=== PATIENT | female | born 1935 | race Caucasian/White ===

== ENCOUNTER 2016-10-30 14:11 | Emergency (ER) | payer OTHER ==
[~2016-10-30] VITALS: Ht 154.9 cm; Wt 65.8 kg
[~2016-10-30 14:11] MED LIST: ALENDRONATE SOD70 M2 PO; AMOXIL 875 MG875 MG PO; ANTIVERT 25MG #1 PAC PO; ANTIVERT25 MG PO; ATORVASTATIN CA10 M1 PO; BUFFERIN LOW DO81 MG PO; COZAAR50 M1 PO; FLONASE120 SPRAY/ NASB; LEVOXYL75 MCG PO; MECLIZINE HCL25 MG PO; PREDNISONE 20MG20 MG PO; TESSALON PERLE100 MG PO; TRANSDERM-SCOP1 EACH TOP; VITAMIN D250000 UNIT PO; ZOFRAN ODT4 M1 PO; ZOFRAN ODT4 M1 SL
--- NOTE | 2016-10-30 14:17 | ED AMS/SEIZURE/WEAK/DIZZY ---
History of Present Illness General Chief Complaint: Dizziness Stated Complaint: BIBA FOR VERTIGO, HX OF SAME Source: patient, family, old records, EMS Exam Limitations: no limitations Vital Signs & Intake/Output Vital Signs & Intake/Output Vital Signs Date Time Temp Pulse Resp B/P Pulse O2 O2 Flow FiO2 Ox Delivery Rate 10/30 1418 97 10/30 1416 96.8 74 18 142/63 98 Room Air Allergies Coded Allergies: Penicillins (UNKNOWN 06/09/16) PT. STATES SHE WAS TOLD SHE IS ALLERGIC BUT DOES NOT KNOW THE REACTION. Reconcile Medications Alendronate Sodium (Fosamax 70MG) 70 MG TAB 1 TAB PO QW BONE HEALTH (Reported ) in the morning, at least 30 minutes before the first food, beverage, or medication of the day Amoxicillin (Amoxil 875 MG Tablets) 875 MG TAB 1 TAB PO BID SINUSITIS Aspirin (Children's Aspirin) 81 MG TAB 1 TAB PO DAILY HEART HEALTH (Reported) Atorvastatin (Atorvastatin Calcium) 10 MG TAB 1 TAB PO DAILY CHOLESTROL ( Reported) Benzonatate (Tessalon Perle) 100 MG SGL 1 CAP PO TID PRN COUGH ERGOCALCIFEROL (VITAMIN D2) (Vitamin D2) 50,000 IU SGL 1 CAP PO DAILY SUPPLIMENT (Reported) Fluticasone Propionate (Flonase) 120 SPRAY/BOT SPR 2 SPRAY NASB DAILY sinusitis Levothyroxine Sodium 0.075 MG TAB 1 TAB PO DAILY THYROID REMOVED (Reported) Losartan (Cozaar) 50 MG TAB 1 TAB PO DAILY HTN (Reported) Meclizine (Antivert) 25 MG PAC 1 TAB PO TIDPRN PRN dizziness Meclizine (Antivert) 25 MG TABLET 1 TAB PO TID DIZZINIESS Meclizine HCl 25 MG TABLET 1 TAB PO TIDPRN PRN VERTIGO Ondansetron (Zofran Odt) 4 MG TAB.RAPDIS 1 TAB SL TID PRN NAUSEA Ondansetron (Zofran Odt) 4 MG TAB.RAPDIS 1-2 TAB PO Q8H PRN NAUSEA Prednisone 10 MG TABLET 1 TAB PO DAILY VERTIGO TAKE 2 TABS FOR 3 DAYS THEN TAKE 1 TAB FOR 3 DAYS Prednisone 20 MG TAB 1 TAB PO BID sinusitis Scopolamine Hydrobromide (Transderm-Scop) 1 EACH PATCH.TD.3 1 PAT TOP Q3D VERTIGO/NAUSEA apply to the hairless area behind 1 ear at least 4 hours before effect is required; reapply every 3 days as needed Triage Note: PT C/O FEELING DIZZY THIS AM. PT HAS HX OF SAME AND TRIED TO REACH HER SPECIALIST AND WAS UNABLE TO. PT TRIED TO TAKE HER MECLAZINE BUT STATES IT DIDN'T WORK. PT REPORTS THE DIZZYNESS STARTED FIRST THEN SHE VOMITIED. PT STATES SHE HAS DE [place] ALSO. DR. MCADAMS IN ROOM FOR EVAL. PT DENIES CHEST PAIN. Triage Nurses Notes Reviewed? yes HPI: Patient brought in for room spinning dizziness nausea and vomiting. Patient has a history of the same. Patient took a meclizine at 8:00 this morning and her symptoms decreased but then they came back and she took another meclizine but then she vomited 5 minutes later. Patient denies any headache. She does have tendinitis. There are no fevers or chills. There is no chest pain or palpitations. The room spinning dizziness gets worse with any head movement. There is no blurry vision. SIMILAR Symptoms multiple times in the past over the past few years. Past History Travel History Traveled to [place] past 21 day No Medical History Any Pertinent Medical History? see below for history Neurological: TIA, vertigo EENT: allergies, epistaxis, sinusitis Cardiovascular: hypertension, hyperlipidemia, mitral regurgitation Respiratory: NONE Gastrointestinal: NONE Hepatic: NONE Renal: NONE Musculoskeletal: NONE Psychiatric: NONE Endocrine: hypothyroidism Blood Disorders: NONE Cancer(s): thyroid cancer Surgical History Surgical History: non-contributory Psychosocial History Who do you live with Spouse What is your primary language Qatari Tobacco Use: Never used ETOH Use: denies use Illicit Drug Use: denies illicit drug use Family History Hx Contributory? No Review of Systems Review of Systems Constitutional: Reports: no symptoms. EENTM: Reports: no symptoms. Respiratory: Reports: no symptoms. Cardiovascular: Reports: no symptoms. GI: Reports: see HPI, nausea, vomiting. Genitourinary: Reports: no symptoms. Musculoskeletal: Reports: no symptoms. Skin: Reports: no symptoms. Neurological/Psychological: Reports: see HPI, ataxia. Hematologic/Endocrine: Reports: no symptoms. Immunologic/Allergic: Reports: no symptoms. All Other Systems: Reviewed and Negative Physical Exam Physical Exam General Appearance: well developed/nourished, alert, awake, anxious, moderate distress Head: atraumatic Eyes: Bilateral: PERRL, EOMI. Ears, Nose, Throat: normal pharynx, normal ENT inspection, + NYSTAGMUS Neck: normal inspection, supple, full range of motion Respiratory: normal breath sounds, chest non-tender, no respiratory distress, lungs clear Cardiovascular: regular rate/rhythm, normal peripheral pulses Gastrointestinal: normal bowel sounds, soft, non-tender, no organomegaly Back: normal inspection, normal range of motion Extremities: normal range of motion Neurologic/Psych: no motor/sensory deficits, awake, alert, oriented x 3 Skin: intact, normal color, warm/dry Lymphatic: no anterior cervical [place] Core Measures ACS in differential dx? No CVA/TIA Diagnosis: No Severe Sepsis Present: No Septic Shock Present: No Progress Differential Diagnosis: anemia, encephalitis, electrolyte imbalance, intracranial mass/tumor, labrynthitis, Meniere's disease, vertebrobasilar insuff Plan of Care: Orders Procedure Date/time Status TROPONIN LEVEL 10/30 141 Complete COMPREHENSIVE METABOLIC PANEL 10/30 1417 Complete CBC WITHOUT DIFFERENTIAL 10/30 141 Complete EKG 10/30 1412 Active Laboratory Tests 10/30/16 1433: Anion Gap 11, Estimated GFR > 60, BUN/Creatinine Ratio 23.3, Glucose 119 H, Calcium 10.1, Total Bilirubin 0.9, AST 20, ALT 25, Alkaline Phosphatase 62, Troponin I < 0.01, Total Protein 7.7, Albumin 4.2, Globulin 3.5, Albumin/ Globulin Ratio 1.2, CBC w Diff NO MAN DIFF REQ, RBC 5.18, MCV 82.1, MCH 27.2, RDW 13.1, MPV 7.0 L, Gran % 87.9 H, Lymphocytes % 7.3 L, Monocytes % 4.8, Eosinophils % 0, Basophils % 0 L, Absolute Granulocytes 6.0, Absolute Lymphocytes 0.5 L, Absolute Monocytes 0.3, Absolute Eosinophils 0, Absolute Basophils 0, PUBS MCHC 33.2 Initial ED EKG: none Comments: Patient feeling much better after by mouth Decadron. Patient ambulated in the emergency department with the use of a walker without difficulty. Departure Departure Disposition: HOME OR SELF CARE Condition: Stable Clinical Impression Primary Impression: Vertigo Referrals: MICHELE CLAY,DELVIN Berger (PCP/Family) Additional Instructions: Follow-up with either her nose and throat doctor. Take prednisone as prescribed. Return if symptoms worsen or as needed. Departure Forms: Customer Survey General Discharge Information Prescriptions: Current Visit Scripts Prednisone 1 TAB PO DAILY #9 TAB TAKE 2 TABS FOR 3 DAYS THEN TAKE 1 TAB FOR 3 DAYS
[2016-10-30 14:52] LABS: ABSOLUTE BASOPHIL COUNT 0 /CUMM (0.0-0.2); ABSOLUTE EOSINOPHIL COUNT 0 /CUMM (0.0-0.7); ABSOLUTE LYMPH COUNT 0.5 /CUMM (1.2-3.4); ABSOLUTE MONOCYTE COUNT 0.3 /CUMM (0.10-0.60); BASOPHIL % 0 % (0.0-2.0); EOSINOPHIL % 0 % (0-5); GRANULOCYTE % 87.9 % (42.2-75.2); HEMATOCRIT 42.5 % (37-47); MEAN CORPUSCULAR HGB 27.2 PG (27.0-31.0); MEAN CORPUSCULAR HGB CONC 33.2 G/DL (33.0-37.0); MEAN CORPUSCULAR VOLUME 82.1 FL (81.0-99.0); PLATELET COUNT 227 /CUMM (130-400); RBC DISTRIBUTION WIDTH 13.1 % (11.5-14.5); RED BLOOD CELL CT 5.18 /CUMM (4.20-5.40); WHITE BLOOD CELL COUNT 6.8 /CUMM (4.8-10.8)
[2016-10-30] MEDS ORDERED: PREDNISONE10 M2 PO (16:12)
[2016-10-30 16:14] VITALS: BP 169/80
== END 2016-10-30 16:30 ==
LOC: ERH 14:11
PROVIDERS: Emergency Medicine
DX: R42 Dizziness and giddiness (principal); R11.2 Nausea with vomiting, unspecified
CPT/HCPCS: 93005; 93010; 96374; J2405

== ENCOUNTER 2016-11-02 17:43 | Emergency (ER) | payer OTHER ==
[~2016-11-02] VITALS: Ht 154.9 cm; Wt 56.7 kg
[~2016-11-02 17:43] MED LIST changes: +PREDNISONE10 M2 PO
[2016-11-02 18:28] LABS: ABSOLUTE BASOPHIL COUNT 0 /CUMM (0.0-0.2); ABSOLUTE EOSINOPHIL COUNT 0 /CUMM (0.0-0.7); ABSOLUTE GRANULOCYTE CT 6.6 /CUMM (1.4-6.5); ABSOLUTE LYMPH COUNT 0.6 /CUMM (1.2-3.4); ABSOLUTE MONOCYTE COUNT 0.3 /CUMM (0.10-0.60); BASOPHIL % 0.2 % (0.0-2.0); EOSINOPHIL % 0 % (0-5); HEMATOCRIT 41.3 % (37-47); MEAN CORPUSCULAR HGB 27.5 PG (27.0-31.0); MEAN CORPUSCULAR HGB CONC 33.7 G/DL (33.0-37.0); MEAN CORPUSCULAR VOLUME 81.8 FL (81.0-99.0); MEAN PLATELET VOLUME 6.9 FL (7.4-10.4); PLATELET COUNT 265 /CUMM (130-400); RBC DISTRIBUTION WIDTH 13.2 % (11.5-14.5); RED BLOOD CELL CT 5.05 /CUMM (4.20-5.40); WHITE BLOOD CELL COUNT 7.5 /CUMM (4.8-10.8)
[2016-11-02 18:35] LABS: PT 11.1 SEC (9.4-12.5); PTT 29 SEC (25-37)
[2016-11-02 18:47] LABS: GRANULOCYTE % 87.6 % (42.2-75.2)
[2016-11-02 19:00] VITALS: BP 164/80
--- NOTE | 2016-11-02 19:04 | ED CARDIAC/CP/PALPITATIONS ---
History of Present Illness General Chief Complaint: Dizziness Stated Complaint: DIZZINESS Source: patient, family, old records Exam Limitations: no limitations Vital Signs & Intake/Output Vital Signs & Intake/Output Vital Signs Date Time Temp Pulse Resp B/P Pulse O2 O2 Flow FiO2 Ox Delivery Rate 11/02 1901 96 11/02 1900 70 18 164/80 96 Room Air 11/02 1754 98.5 92 18 161/111 99 Room Air Allergies Coded Allergies: Penicillins (UNKNOWN 06/09/16) PT. STATES SHE WAS TOLD SHE IS ALLERGIC BUT DOES NOT KNOW THE REACTION. Reconcile Medications Alendronate Sodium (Fosamax 70MG) 70 MG TAB 1 TAB PO QW BONE HEALTH (Reported ) in the morning, at least 30 minutes before the first food, beverage, or medication of the day Amoxicillin (Amoxil 875 MG Tablets) 875 MG TAB 1 TAB PO BID SINUSITIS Aspirin (Children's Aspirin) 81 MG TAB 1 TAB PO DAILY HEART HEALTH (Reported) Atorvastatin (Atorvastatin Calcium) 10 MG TAB 1 TAB PO DAILY CHOLESTROL ( Reported) Benzonatate (Tessalon Perle) 100 MG SGL 1 CAP PO TID PRN COUGH ERGOCALCIFEROL (VITAMIN D2) (Vitamin D2) 50,000 IU SGL 1 CAP PO DAILY SUPPLIMENT (Reported) Fluticasone Propionate (Flonase) 120 SPRAY/BOT SPR 2 SPRAY NASB DAILY sinusitis Levothyroxine Sodium 0.075 MG TAB 1 TAB PO DAILY THYROID REMOVED (Reported) Losartan (Cozaar) 50 MG TAB 1 TAB PO DAILY HTN (Reported) Meclizine (Antivert) 25 MG PAC 1 TAB PO TIDPRN PRN dizziness Meclizine (Antivert) 25 MG TABLET 1 TAB PO TID DIZZINIESS Meclizine HCl 25 MG TABLET 1 TAB PO TIDPRN PRN VERTIGO Ondansetron (Zofran Odt) 4 MG TAB.RAPDIS 1 TAB SL TID PRN NAUSEA Ondansetron (Zofran Odt) 4 MG TAB.RAPDIS 1-2 TAB PO Q8H PRN NAUSEA Prednisone 10 MG TABLET 1 TAB PO DAILY VERTIGO TAKE 2 TABS FOR 3 DAYS THEN TAKE 1 TAB FOR 3 DAYS Prednisone 20 MG TAB 1 TAB PO BID sinusitis Scopolamine Hydrobromide (Transderm-Scop) 1 EACH PATCH.TD.3 1 PAT TOP Q3D VERTIGO/NAUSEA apply to the hairless area behind 1 ear at least 4 hours before effect is required; reapply every 3 days as needed Triage Note: 81 Y/O FEMALE AND "LIKE IT SKIPS A BEAT" THROUGHOUT THE DAY TODAY. STATES IT HAS BEEN ONGOING FOR YEARS BUT MORE BOTHERSOME TODAY. DENIES PAIN. ATE DINNER PRIOR TO COMING TO ED WITHOUT DIFFICULTY. EKG COMPLETED AND SIGNED BY MD Triage Nurses Notes Reviewed? yes Onset: Gradual Duration: day(s): (2), intermittent Timing: recent history Quality/Severity: mild, PALPITAITONS Location: central Radiation: no radiation Activities at Onset: none Prior Chest Pain/Card Workup: SIMILAR SX Associated Symptoms: LIGHTHEADEDNESS HPI: 81-year-old female with history of vertigo for which she was seen here 3 days ago presents to the emergency room today complaining of an intermittent history for the past 2 days of palpitations and feeling lightheaded that comes on more so while laying flat. The patient denies any chest pain shortness of breath abdominal pain nausea vomiting or diarrhea. She is currently on a Medrol Dosepak and meclizine for her vertigo is states this feels different. The patient reports history of similar episodes in the past and used to be seen by a low emission automobile designer hours. Seen one in many years however has gone through many steps including a Holter monitor with no known cause identified. The patient denies any of these symptoms at this time no cough fever or chills. The patient denies dizziness today, headache numbness tingling or weakness in her extremities (SANDEE PICKARD) Past History Travel History Traveled to [place] past 21 day No Medical History Any Pertinent Medical History? see below for history Neurological: TIA, vertigo EENT: allergies, epistaxis, sinusitis Cardiovascular: hypertension, hyperlipidemia, mitral regurgitation Respiratory: NONE Gastrointestinal: NONE Hepatic: NONE Renal: NONE Musculoskeletal: NONE Psychiatric: NONE Endocrine: hypothyroidism Blood Disorders: NONE Cancer(s): thyroid cancer Surgical History Surgical History: non-contributory Psychosocial History Who do you live with Spouse What is your primary language Danish Tobacco Use: Never used Family History Hx Contributory? No (SANDEE PICKARD) Review of Systems Review of Systems Constitutional: Reports: see HPI. All Other Systems: Reviewed and Negative Comments Review of systems: See HPI, All other systems negative. Constitutional, no chills no fever, no malaise HEENT: No visual changes no sore throat no congestion Cardiovascular: No chest pain , palpitation , Skin, no rashes, no change in skin Respiratory: No dyspnea no cough no sputum GI: No nausea no vomiting, no diarrhea, no bloating/constipation : No dysuria No hematuria, n Muscle skeletal: No joint pain, no joint swelling, no back pain, no neck pain, Neurologic: No numbness no confusion, no headache Psych: No stress Heme/endocrine: No bruising no bleeding Immunology: No lymphadenopathy (SANDEE PICKARD) Physical Exam Physical Exam General Appearance: well developed/nourished, alert, awake Cardiovascular: regular rate/rhythm Comments: Well-developed well-nourished person in no acute distress HEENT: Normal EENT exam; PERRL, EOMI, no nystagmus. HEAD is atraumatic. moist mucous membranes. Neck: Supple, no lymphadenopathy, normal range of motion without pain or tenderness Back: Nontender, no CVA tenderness. Full range of motion Cardiovascular: Regular rate and rhythms no murmurs rubs or gallops, normal JVP Respiratory: Chest nontender.There were no bony deformities, no asymmetry. No respiratory distress. Patient speaking in full complete sentences. Breath sounds clear to auscultation bilaterally: NO W/R/R Abdomen: Soft, nontender nondistended, no appreciable organomegaly. Normal bowel sounds. No rebound/guarding, Extremity: No edema, full range of motion of extremities Neuro: Alert oriented x3, motor sensory normal, cranial nerves II through XII grossly intact. There were no obvious focal neurologic abnormalities. Skin: No appreciable rash on exposed skin, skin is warm and dry. Psych: Mood and affect is normal, memory and judgment is normal. Core Measures ACS in differential dx? Yes Severe Sepsis Present: No Septic Shock Present: No (SANDEE PICKARD) Progress Differential Diagnosis: AMI, aortic dissection, atrial fibrillation, cholecystitis, CHF/pulm edema, costochondritis, hyperkalemia, hypovolemia, hyperventilation, musculoskeletal pain, myocarditis, pancreatitis, pericarditis, pneumonia, pneumothorax, PSVT, pulmonary embolism, PUD/GERD, PVCs/PACs, respiratory failure, rib fracture, sepsis, unstable angina, V-fib/V-Tach, WPW syndrome Initial ED EKG: normal intervals, normal p-waves, normal QRS complex, normal sinus rhythm (70) Prior EKG: unchanged (2015) (SANDEE PICKARD) Plan of Care: Orders Procedure Date/time Status TROPONIN LEVEL 11/02 1745 Complete PARTIAL THROMBOPLASTIN TIME 11/02 1745 Complete PROTHROMBIN TIME 11/02 1745 Complete MAGNESIUM 11/02 1745 Complete COMPREHENSIVE METABOLIC PANEL 11/02 1745 Complete CBC WITHOUT DIFFERENTIAL 11/02 1745 Complete EKG 11/02 1744 Active Laboratory Tests 11/02/16 1811: Anion Gap 15, Estimated GFR > 60, BUN/Creatinine Ratio 24.4, Glucose 141 H, Calcium 9.7, Magnesium 1.8, Total Bilirubin 0.6, AST 34, ALT 43, Alkaline Phosphatase 56, Troponin I < 0.01, Total Protein 7.5, Albumin 4.2, Globulin 3.3, Albumin/Globulin Ratio 1.3, PT 11.1, INR 1.06, APTT 29, CBC w Diff NO MAN DIFF REQ, RBC 5.05, MCV 81.8, MCH 27.5, RDW 13.2, MPV 6.9 L, Gran % 87.6 H, Lymphocytes % 7.8 L, Monocytes % 4.4, Eosinophils % 0, Basophils % 0.2, Absolute Granulocytes 6.6 H, Absolute Lymphocytes 0.6 L, Absolute Monocytes 0.3, Absolute Eosinophils 0, Absolute Basophils 0, PUBS MCHC 33.7 Patient clinically appears well denies any symptoms at this time labs ordered we 'll continue to monitor her on telemetry case was discussed with Dr. Preciado who evaluated the patient agreed with plan On repeat evaluation patient has been normal sinus on the monitor without any arrhythmias discussed with her at length all of her lab results need for close follow-up with her primary care physician the patient feels comfortable with this plan cleared for discharge (SANDEE PICKARD) Departure Departure Time of Disposition: 1940 Disposition: HOME OR SELF CARE Condition: Stable Clinical Impression Primary Impression: Palpitations Referrals: MICHELE CLAY,DELVIN Berger (PCP/Family) MIRIAM GARCIA MD Additional Instructions: FOLLOW UP WITH YOUR primary care physician as well as low emission automobile designer Dr. Garcia tomorrow. Return anytime sooner with any concerns Departure Forms: Customer Survey General Discharge Information (SANDEE PICKARD) PA/MARKETING ANALYST Co-Sign Statement Statement: ED Attending supervision documentation- [x] I saw and evaluated the patient. I have also reviewed all the pertinent lab results and diagnostic results. I agree with the findings and the plan of care as documented in the PA's/MARKETING ANALYST's documentation. [] I have reviewed the ED Record and agree with the PA's/MARKETING ANALYST's documentation. [] Additions or exceptions (if any) to the PAs/MARKETING ANALYST's note and plan are summarized below: [] (VINI CLAY,DIPTI Godoy) Critical Care Note Critical Care Note Critical Care Time: non-applicable (SANDEE PICKARD)
== END 2016-11-02 19:56 ==
LOC: ERH 17:43
PROVIDERS: Emergency Medicine
DX: R00.2 Palpitations (principal)
CPT/HCPCS: 93005; 93010

== ENCOUNTER 2016-12-18 20:16 | Emergency (ER) | payer OTHER ==
--- NOTE | 2016-12-18 20:48 | ED AMS/SEIZURE/WEAK/DIZZY ---
History of Present Illness General Chief Complaint: Dizziness Stated Complaint: DIZZY ALL DAY PER PT Source: patient Exam Limitations: no limitations Vital Signs & Intake/Output Vital Signs & Intake/Output Vital Signs Date Time Temp Pulse Resp B/P Pulse O2 O2 Flow FiO2 Ox Delivery Rate 12/19 0111 97.8 90 20 149/89 98 Room Air 12/183 104 30 228/110 97 Room Air ED Intake and Output 12/19 0000 12/18 1200 Intake Total 1000 Output Total Balance 1000 Intake, IV 1000 Patient 150 lb Weight Allergies Coded Allergies: Penicillins (UNKNOWN 06/09/16) PT. STATES SHE WAS TOLD SHE IS ALLERGIC BUT DOES NOT KNOW THE REACTION. Reconcile Medications Alendronate Sodium (Fosamax 70MG) 70 MG TAB 1 TAB PO QW BONE HEALTH (Reported ) in the morning, at least 30 minutes before the first food, beverage, or medication of the day Amoxicillin (Amoxil 875 MG Tablets) 875 MG TAB 1 TAB PO BID SINUSITIS Aspirin (Children's Aspirin) 81 MG TAB 1 TAB PO DAILY HEART HEALTH (Reported) Atorvastatin (Atorvastatin Calcium) 10 MG TAB 1 TAB PO DAILY CHOLESTROL ( Reported) Benzonatate (Tessalon Perle) 100 MG SGL 1 CAP PO TID PRN COUGH ERGOCALCIFEROL (VITAMIN D2) (Vitamin D2) 50,000 IU SGL 1 CAP PO DAILY SUPPLIMENT (Reported) Fluticasone Propionate (Flonase) 120 SPRAY/BOT SPR 2 SPRAY NASB DAILY sinusitis Levothyroxine Sodium 0.075 MG TAB 1 TAB PO DAILY THYROID REMOVED (Reported) Losartan (Cozaar) 50 MG TAB 1 TAB PO DAILY HTN (Reported) Meclizine (Antivert) 25 MG PAC 1 TAB PO TIDPRN PRN dizziness Meclizine (Antivert) 25 MG TABLET 1 TAB PO TID DIZZINIESS Meclizine HCl 25 MG TABLET 1 TAB PO TIDPRN PRN VERTIGO Ondansetron (Zofran Odt) 4 MG TAB.RAPDIS 1 TAB SL TID PRN NAUSEA Ondansetron (Zofran Odt) 4 MG TAB.RAPDIS 1-2 TAB PO Q8H PRN NAUSEA Prednisone 10 MG TABLET 1 TAB PO DAILY VERTIGO TAKE 2 TABS FOR 3 DAYS THEN TAKE 1 TAB FOR 3 DAYS Prednisone 20 MG TAB 1 TAB PO BID sinusitis Scopolamine Hydrobromide (Transderm-Scop) 1 EACH PATCH.TD.3 1 PAT TOP Q3D VERTIGO/NAUSEA apply to the hairless area behind 1 ear at least 4 hours before effect is required; reapply every 3 days as needed Triage Note: WOKE UP FEELING WELL THIS AM ABOUT 12 NOON STARTED WITYH DIZZYNESS TOOK MECLIZINE WITH EFFECT, AT 7PM DIZZY AGAIN ANOTHER MECLIZINE NO EFFECT UPON ARRIVAL VOMITING SEEN BEFORE FOR SAME. Triage Nurses Notes Reviewed? yes HPI: 81 yo F PMH HTN, HLD, hypothyroidism, TIA, peripheral vertigo presenting with dizziness, N/V. Dizziness starting around noon today, described as "room spinning", consistent with previous vertigo, patient took meclizine with improvement, tonight recurrent dizziness, much more severe than this afternoon, took meclizine without effect prompting presentation to the ED. Associated nausea and vomiting, worse since arrival in ED. Some chills and throat irritation/globus sensation since vomiting. Denies fevers, chills, chest pain, SOB, palpitations, abdominal pain, diarrhea, constipation, bloody stools, urinary Sx, rashes, visual changes, dysarhthria, or focal neurologic Sx. (LUIS E CLAY,GÓMEZ) Past History Travel History Traveled to [place] past 21 day No Medical History Any Pertinent Medical History? see below for history Neurological: TIA, vertigo EENT: allergies, epistaxis, sinusitis Cardiovascular: hypertension, hyperlipidemia, mitral regurgitation Respiratory: NONE Gastrointestinal: NONE Hepatic: NONE Renal: NONE Musculoskeletal: NONE Psychiatric: NONE Endocrine: hypothyroidism Blood Disorders: NONE Cancer(s): thyroid cancer Surgical History Surgical History: non-contributory Psychosocial History Who do you live with Spouse What is your primary language Sudanese Tobacco Use: Never used Family History Hx Contributory? Yes (LUIS E CLAY,GÓMEZ) Review of Systems Review of Systems Constitutional: Reports: chills, malaise, weakness. Denies: diaphoresis, fever. EENTM: Reports: throat pain. Denies: ear discharge, ear pain, ear redness. Respiratory: Reports: no symptoms. Cardiovascular: Reports: no symptoms. GI: Reports: nausea, vomiting. Denies: abdominal pain, constipation, diarrhea, bloody stool. Genitourinary: Reports: no symptoms. Musculoskeletal: Reports: no symptoms. Skin: Reports: no symptoms. Neurological/Psychological: Reports: weakness, other (Dizziness). Hematologic/Endocrine: Reports: no symptoms. Immunologic/Allergic: Reports: no symptoms. All Other Systems: Reviewed and Negative (LUIS E CLAY,GÓMEZ) Physical Exam Physical Exam General Appearance: well developed/nourished, Laying in bed, eyes closed, uncomfortable Head: atraumatic, normal appearance Eyes: Bilateral: normal appearance, PERRL, EOMI. Ears, Nose, Throat: normal pharynx, normal ENT inspection Neck: normal inspection, supple, full range of motion Respiratory: normal breath sounds, no respiratory distress, lungs clear Cardiovascular: regular rate/rhythm, normal peripheral pulses Gastrointestinal: normal bowel sounds, soft, non-tender Back: normal inspection Extremities: normal range of motion Neurologic/Psych: no motor/sensory deficits, awake, alert Comments: Neurologic Exam: Cranial nerves II-XII intact, Visual mcdowell intact, no pronator drift, strenght 5/5 throughout, no sensory deficits, no dysmetria with finger- nose-finger and [id number]-[id number] testing Core Measures ACS in differential dx? Yes CVA/TIA Diagnosis: Yes Severe Sepsis Present: No Septic Shock Present: No (LUIS E CLAY,GÓMEZ) Progress Differential Diagnosis: benign positional vertigo, CVA/stroke, hypoglycemia, intracranial Hem., intracranial mass/tumor, labrynthitis, meningitis, Meniere's disease, presyncope, UTI/pyelo Plan of Care: Orders Procedure Date/time Status URINALYSIS 12/19 2215 Complete TROPONIN LEVEL 12/19 2027 Complete LIPASE 12/19 2027 Complete HEPATIC FUNCTION PANEL 12/19 2027 Complete CBC WITHOUT DIFFERENTIAL 12/19 2027 Complete BASIC METABOLIC PANEL 12/19 2027 Complete AMYLASE 12/19 2027 Complete EKG 12/18 2017 Active Current Medications Sig/Arun Start time Last Medication Dose Stop Time Status Admin Ondansetron HCl 4 MG ONCE ONE 12/18 2114 CAN (Zofran) 12/19 2115 Ondansetron HCl 0 .STK-MED ONE 12/18 2056 CAN (Zofran) Laboratory Tests 12/19/16 0009: Urine Color YEL, Urine Clarity CLEAR, Urine pH 7.0, Ur Specific Roxana 1.015, Urine Protein NEG, Urine Ketones NEG, Urine Nitrite NEG, Urine Bilirubin NEG, Urine Urobilinogen 0.2, Ur Leukocyte Esterase TRACE H, Ur Microscopic SEDIMENT EXAMINED, Urine RBC RARE, Urine WBC 5-10 H, Ur Epithelial Cells RARE, Urine Hemoglobin NEG, Urine Glucose NEG 12/18/162043: Anion Gap 14, Estimated GFR > 60, BUN/Creatinine Ratio 18.8, Glucose 118 H, Calcium 9.7, Total Bilirubin 0.6, Direct Bilirubin 0.4, AST 25, ALT 31, Alkaline Phosphatase 52, Troponin I < 0.01, Total Protein 7.6, Albumin 4.2, Amylase < 30 L, Lipase 120, CBC w Diff NO MAN DIFF REQ, RBC 5.08, MCV 82.4, MCH 27.6, RDW 13.2, MPV 6.9 L, Gran % 64.3, Lymphocytes % 24.4, Monocytes % 10.7 H, Eosinophils % 0.1, Basophils % 0.5, Absolute Granulocytes 6.6 H, Absolute Lymphocytes 2.5, Absolute Monocytes 1.1 H, Absolute Eosinophils 0, Absolute Basophils 0, PUBS MCHC 33.5 Physician MDM: 81 yo F PMH HTN, HLD, peripheral vertigo, TIA presenting wtih dizziness (vertiginous) and N/V. Markedly hypertensive in triage (SBP 228), SBP 160s during exam, HR 100s, neurologic exam non-focal. DDx: Peripheral vertigo vs. central vertigo/cerebellar CVA/TIA. Given valium 2.5 mg, meclizine 25 mg, zofran, compazine, 1L NS with moderate improvement in symptoms. ECG sinus tachycardia, non-ischemic, troponin <0.01. CMP, CBC unermarkable. CXR without focal consolidation or airspace disease. UA with 5-10 WBCS, nitrite (-), rare epis, after discussion with patient, given patient asymptomatic, will hold abx for now. CTA head/neck without evidence of CVA. On re-examination patient ambulatory with an even gait without assistance, mild dizziness, but comfortable with discharge. Patient relates she has long history of vertigo, sees ENT physician, melvina, plans to f/u with ENT physician in the next 2-3 days. D/Skip with return precautions. D/W Dr. Mcneal. (LUIS E CLAY,GÓMEZ) Initial ED EKG: sinus tachycardia (SCHOEGÓMEZ DEAL MD) Departure Departure Disposition: HOME OR SELF CARE Condition: Stable Clinical Impression Primary Impression: Vertigo Referrals: MICHELE CLAY,DELVIN Berger (PCP/Family) Additional Instructions: Continue meclizine and compazine as prescribed. Follow up with your primary care physician or your ENT physician in the next 2-3 days. Return to the ED for any new, worsening, or concerning symptoms. Departure Forms: Customer Survey General Discharge Information (LUIS E CLAY,GÓMEZ) Resident Co-Sign Statement Statement: ED Attending supervision documentation- [x] I saw and evaluated the patient. I have also reviewed all the pertinent lab results and diagnostic results. I agree with the findings and the plan of care as documented in the Resident's documentation. [] I have reviewed the ED Record and agree with the Resident's documentation. [] Additions or exceptions (if any) to the Resident's note and plan are summarized below: [] (LAURI CLAY,EBLLA Cartagena)
[2016-12-18 20:53] LABS: ABSOLUTE BASOPHIL COUNT 0 /CUMM (0.0-0.2); ABSOLUTE EOSINOPHIL COUNT 0 /CUMM (0.0-0.7); ABSOLUTE GRANULOCYTE CT 6.6 /CUMM (1.4-6.5); ABSOLUTE LYMPH COUNT 2.5 /CUMM (1.2-3.4); ABSOLUTE MONOCYTE COUNT 1.1 /CUMM (0.10-0.60); BASOPHIL % 0.5 % (0.0-2.0); EOSINOPHIL % 0.1 % (0-5); GRANULOCYTE % 64.3 % (42.2-75.2); HEMATOCRIT 41.9 % (37-47); MEAN CORPUSCULAR HGB 27.6 PG (27.0-31.0); MEAN CORPUSCULAR HGB CONC 33.5 G/DL (33.0-37.0); MEAN CORPUSCULAR VOLUME 82.4 FL (81.0-99.0); MEAN PLATELET VOLUME 6.9 FL (7.4-10.4); PLATELET COUNT 260 /CUMM (130-400); RBC DISTRIBUTION WIDTH 13.2 % (11.5-14.5); RED BLOOD CELL CT 5.08 /CUMM (4.20-5.40); WHITE BLOOD CELL COUNT 10.3 /CUMM (4.8-10.8)
--- NOTE | 2016-12-18 23:09 | RADIOLOGY REPORT ---
EXAMINATION: XR PORTABLE CHEST CLINICAL INFORMATION: Cough, fever. COMPARISON: Chest x-ray 03/16/2011. TECHNIQUE: Portable AP view of the chest was obtained. FINDINGS: The lungs are hypoinflated, without focal airspace consolidation. There is minimal dependent bibasilar atelectasis, right greater than left. No pleural effusions or pneumothoraces are identified. Cardiomediastinal contours are within normal limits. Soft tissues are unremarkable. No acute osseous abnormality is identified. IMPRESSION: No acute pulmonary process. Pulmonary hypoinflation. Minimal dependent bibasilar atelectasis, right greater than left.
--- NOTE | 2016-12-19 00:30 | CT SCAN REPORT ---
EXAMINATION: CTA OF THE HEAD/NECK CLINICAL INFORMATION: Dizziness. Nausea and vomiting. COMPARISON: Head CT from 06/09/2016. TECHNIQUE: A 95 mL bolus of Optiray 320 was administered. Subsequent multidetector helical imaging was performed of the head and neck. Delayed post contrast imaging was also performed through the head. Multiplanar reformats and MIP were also obtained. Internal carotid artery stenoses are assessed in accordance with NASCET criteria unless otherwise indicated. 3D reformats will be created and reviewed when available. DLP: 1651 mGy-cm. FINDINGS: CT HEAD: No evidence of acute intracranial hemorrhage or territorial infarction. No abnormal mass effect or midline shift. 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 Ann to white matter differentiation is otherwise preserved. No extra-axial fluid collections are identified. No hydrocephalus. No suspicious leptomeningeal or parenchymal enhancement. The osseous structures and soft tissues are normal. The mastoid air cells and visualized portions of the paranasal sinuses are well aerated. CTA NECK: The aortic arch is of normal caliber and the origins of the great vessels are patent without evidence of significant stenosis. The cervical portion of the vertebral arteries are patent bilaterally. No luminal irregularities in the common carotid arteries and the carotid bifurcations are patent bilaterally. Mild nonocclusive calcification is seen at the origin of the internal carotid arteries bilaterally without resultant stenosis. The cervical portion of the internal carotid arteries are of normal caliber. The laryngeal structures and pharyngeal mucosal spaces are unremarkable. The oral cavity appears normal. The parotid and submandibular glands are normal. No pathologically enlarged lymph nodes. The thyroid gland is diminutive or absent.. There is no pneumothorax. Minimal left apical pleural thickening. There is prominent dilatation of the visualized esophagus which is fluid-filled. Diverticula are noted. Multilevel degenerative changes are seen in the cervical spine. CTA HEAD: The intradural portion of the vertebral arteries are of normal caliber. The basilar, superior cerebellar, and posterior communicating arteries are patent. The posterior, middle, and anterior cerebral arteries are of normal caliber without evidence of significant luminal irregularity. The left posterior cerebral artery is supplied by the anterior circulation with prominent posterior communicating artery. Mild calcifications of the intracranial internal carotid arteries without significant stenosis. No definite intracranial aneurysms. IMPRESSION: 1. No significant vascular abnormality. Scattered nonstenotic calcifications. 2. No acute intracranial findings. Encephalomalacia in the right temporal lobe is unchanged. 3. Prominent dilatation of the visualized portion of the esophagus with diverticula noted. This is diffusely fluid-filled. The patient would be at higher risk for aspiration given this appearance.
[2016-12-19 01:11] VITALS: BP 149/89
== END 2016-12-19 01:12 ==
LOC: ERH 20:16
PROVIDERS: Pediatrics
DX: R42 Dizziness and giddiness (principal); R11.2 Nausea with vomiting, unspecified; J02.9 Acute pharyngitis, unspecified; R68.83 Chills (without fever); I10 Essential (primary) hypertension; E03.9 Hypothyroidism, unspecified
CPT/HCPCS: 81001; 93005; 93010; 96361; 96374; 96375; J0780; J2405; J3360

== ENCOUNTER 2017-01-16 00:54 | Inpatient (IN) | payer OTHER ==
[~2017-01-16] VITALS: Ht 154.9 cm; Wt 56.7 kg
--- NOTE | 2017-01-16 01:15 | NUR ---
PER PT/EMS PT HX OF VERTIGO AND BEING NAUSEOUS. PT BEING WORKED UP FOR MENIERES DX. PER PT FELT LIKE SHE WAS GOING TO BE SICK, AND GOT UP AND FELL + LOC. PT REPORTS CONT NAUSEOUS UPON ARRIVAL VOMITING DARK, MAROON BLOOD, PT REPORTS FEELING NAUSEOUS AND DIZZY.
[2017-01-16] MEDS ORDERED: LIPO-FLAVONOID1 EACH PO (01:26)
[2017-01-16 01:38] LABS: ABSOLUTE BASOPHIL COUNT 0 /CUMM (0.0-0.2); ABSOLUTE EOSINOPHIL COUNT 0 /CUMM (0.0-0.7); ABSOLUTE GRANULOCYTE CT 8.9 /CUMM (1.4-6.5); ABSOLUTE LYMPH COUNT 1.8 /CUMM (1.2-3.4); ABSOLUTE MONOCYTE COUNT 0.5 /CUMM (0.10-0.60); BASOPHIL % 0.1 % (0.0-2.0); EOSINOPHIL % 0.1 % (0-5); GRANULOCYTE % 79.3 % (42.2-75.2); HEMATOCRIT 38.9 % (37-47); MEAN CORPUSCULAR HGB 27.9 PG (27.0-31.0); MEAN CORPUSCULAR HGB CONC 34.2 G/DL (33.0-37.0); MEAN CORPUSCULAR VOLUME 81.7 FL (81.0-99.0); MEAN PLATELET VOLUME 6.9 FL (7.4-10.4); PLATELET COUNT 217 /CUMM (130-400); RED BLOOD CELL CT 4.76 /CUMM (4.20-5.40); WHITE BLOOD CELL COUNT 11.3 /CUMM (4.8-10.8)
--- NOTE | 2017-01-16 01:50 | NUR ---
PT CONT TO CO OF DIZZYNESS UNABLE TO STEVAN LYING FLAT OR SITTING HIGHER, MD AWARE THAT PT STILL CANNOT STEVAN CT
[2017-01-16 01:51] LABS: PTT 28 SEC (25-37)
--- NOTE | 2017-01-16 03:07 | NUR ---
no further vomiting noted pt to attempt xr/ct. zackary movement to xr well as long as pt was moved slowly.
--- NOTE | 2017-01-16 03:10 | ED GI/GU/ABDOMINAL COMPLAINT ---
History of Present Illness General Chief Complaint: Syncope and Near-Syncope Stated Complaint: BIBA SYNCOPE Source: patient, family, old records, EMS Exam Limitations: no limitations Vital Signs & Intake/Output Vital Signs & Intake/Output Vital Signs Date Time Temp Pulse Resp B/P Pulse O2 O2 Flow FiO2 Ox Delivery Rate 01/16 0058 98.4 90 19 168/81 98 Room Air Allergies Coded Allergies: Penicillins (UNKNOWN 06/09/16) PT. STATES SHE WAS TOLD SHE IS ALLERGIC BUT DOES NOT KNOW THE REACTION. Reconcile Medications Alendronate Sodium (Fosamax 70MG) 70 MG TAB 1 TAB PO QW BONE HEALTH (Reported ) in the morning, at least 30 minutes before the first food, beverage, or medication of the day Amoxicillin (Amoxil 875 MG Tablets) 875 MG TAB 1 TAB PO BID SINUSITIS Atorvastatin (Atorvastatin Calcium) 10 MG TAB 1 TAB PO DAILY CHOLESTROL ( Reported) Benzonatate (Tessalon Perle) 100 MG SGL 1 CAP PO TID PRN COUGH Bioflav,Lemon/Vit Bcomp,C (Lipo-Flavonoid Plus Caplet) 200 MG-100 MG TABLET 1 TAB PO DAILY VITAMIN (Reported) ERGOCALCIFEROL (VITAMIN D2) (Vitamin D2) 50,000 IU SGL 1 CAP PO DAILY SUPPLIMENT (Reported) Fluticasone Propionate (Flonase) 120 SPRAY/BOT SPR 2 SPRAY NASB DAILY sinusitis Levothyroxine Sodium 0.075 MG TAB 1 TAB PO DAILY THYROID REMOVED (Reported) Losartan (Cozaar) 50 MG TAB 1 TAB PO DAILY HTN (Reported) Meclizine (Antivert) 25 MG PAC 1 TAB PO TIDPRN PRN dizziness Meclizine (Antivert) 25 MG TABLET 1 TAB PO TID DIZZINIESS Meclizine HCl 25 MG TABLET 1 TAB PO TIDPRN PRN VERTIGO Ondansetron (Zofran Odt) 4 MG TAB.RAPDIS 1 TAB SL TID PRN NAUSEA Ondansetron (Zofran Odt) 4 MG TAB.RAPDIS 1-2 TAB PO Q8H PRN NAUSEA Prednisone 10 MG TABLET 1 TAB PO DAILY VERTIGO TAKE 2 TABS FOR 3 DAYS THEN TAKE 1 TAB FOR 3 DAYS Prednisone 20 MG TAB 1 TAB PO BID sinusitis Scopolamine Hydrobromide (Transderm-Scop) 1 EACH PATCH.TD.3 1 PAT TOP Q3D VERTIGO/NAUSEA apply to the hairless area behind 1 ear at least 4 hours before effect is required; reapply every 3 days as needed Triage Note: PER PT/EMS PT HX OF VERTIGO AND BEING NAUSEOUS. PT BEING WORKED UP FOR MENIERES DX. PER PT FELT LIKE SHE WAS GOING TO BE SICK, AND GOT UP AND FELL + LOC. PT REPORTS CONT NAUSEOUS UPON ARRIVAL VOMITING DARK, MAROON BLOOD, PT REPORTS FEELING NAUSEOUS AND DIZZY. Triage Nurses Notes Reviewed? yes LMP (ages 10-50): post menopausal ? n Is pt currently ? No Onset: Just prior to arrival Duration: continues in ED Timing: recent history Quality/Severity: moderate, vomiting Location: generalized abdomen Radiation: no radiation Activities at Onset: sleep Prior Abdominal Problems: none Past Sexual History: Unobtainable at this time Modifying Factors: Worsens With: movement. Associated Symptoms: nausea/vomiting, weakness HPI: Prior to admission patient awoke with feeling of nausea went to the bathroom felt dizzy lost balance and struck the back of her head against the wall. She also complains of left hip pain. En route she vomited blood and coffee grounds. She is currently being worked up for Mnire's disease. She denies loss of consciousness here chills chest pain cough shortness of breath headache dysuria rash. Past History Travel History Traveled to [place] past 21 day No Medical History Any Pertinent Medical History? see below for history Neurological: TIA, vertigo, ?MENIERES EENT: allergies, epistaxis, sinusitis Cardiovascular: hypertension, hyperlipidemia, mitral regurgitation Respiratory: NONE Gastrointestinal: NONE Hepatic: NONE Renal: NONE Musculoskeletal: NONE Psychiatric: NONE Endocrine: hypothyroidism Blood Disorders: NONE Cancer(s): thyroid cancer Surgical History Surgical History: non-contributory Psychosocial History Who do you live with Spouse What is your primary language Bahamian Tobacco Use: Never used Family History Hx Contributory? No Review of Systems Review of Systems Constitutional: Reports: see HPI, weakness. EENTM: Reports: no symptoms. Respiratory: Reports: no symptoms. Cardiovascular: Reports: no symptoms. GI: Reports: see HPI, nausea, vomiting. Genitourinary: Reports: no symptoms. Musculoskeletal: Reports: no symptoms. Skin: Reports: no symptoms. Neurological/Psychological: Reports: see HPI, weakness, other. Hematologic/Endocrine: Reports: no symptoms. Immunologic/Allergic: Reports: no symptoms. All Other Systems: Reviewed and Negative Physical Exam Physical Exam General Appearance: well developed/nourished, alert, awake, anxious, moderate distress Head: atraumatic, normal appearance Eyes: Bilateral: normal appearance, PERRL, EOMI, normal inspection. Ears, Nose, Throat, Mouth: hearing grossly normal, moist mucous membrane Neck: normal inspection, supple, full range of motion, normal alignment Respiratory: normal breath sounds, chest non-tender, no respiratory distress, quiet respiration, lungs clear Cardiovascular: regular rate/rhythm, normal peripheral pulses, norml femoral pulses equa Peripheral Pulses: 4+ carotid (R), 4+ carotid (L) Gastrointestinal: normal bowel sounds, soft, non-tender, no organomegaly Rectal: heme positive stool Back: normal inspection, normal range of motion Extremities: normal range of motion, no ligament instability Neurologic/Psych: no motor/sensory deficits, awake, alert, oriented x 3, normal mood/affect, pump 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 Yes ASA ordered for poss ACS? No-d/t bleeding/risk of Severe Sepsis Present: No Septic Shock Present: No Progress Differential Diagnosis: gastritis, PUD/GERD, presyncope Plan of Care: Orders Procedure Date/time Status Nothing by Mouth 01/16 B Active Patient Data 01/16 050 Active OXYGEN SETUP (GEN) 01/16 223 Active Saline Lock 01/16 223 Active Admit to inpatient 01/16 223 Active Vital Signs 01/16 223 Active Activity/Ambulation 01/16 223 Active Code Status 01/16 223 Active LIPASE 01/16 115 Complete Add-on Test (ER Only) 01/16 114 Active TROPONIN LEVEL 01/16 111 Complete PARTIAL THROMBOPLASTIN TIME 01/16 111 Complete PROTHROMBIN TIME 01/16 111 Complete LACTIC ACID 01/16 111 Complete COMPREHENSIVE METABOLIC PANEL 01/16 111 Complete CBC WITHOUT DIFFERENTIAL 01/16 111 Complete TYPE & SCREEN (NOT X-MATCH) 01/16 111 Complete EKG 01/16 005 Active Laboratory Tests 01/16/17 0411: Lactic Acid Cancelled 01/16/17 0115: Anion Gap 11, Estimated GFR > 60, BUN/Creatinine Ratio 21.3, Glucose 169 H, Lactic Acid 1.9, Calcium 9.2, Total Bilirubin 0.7, AST 23, ALT 32, Alkaline Phosphatase 53, Troponin I < 0.01, Total Protein 6.8, Albumin 3.7, Globulin 3.1, Albumin/Globulin Ratio 1.2, Lipase 191, PT 11.0, INR 1.05, APTT 28, CBC w Diff NO MAN DIFF REQ, RBC 4.76, MCV 81.7, MCH 27.9, RDW 13.0, MPV 6.9 L, Gran % 79.3 H, Lymphocytes % 15.7 L, Monocytes % 4.8, Eosinophils % 0.1, Basophils % 0.1, Absolute Granulocytes 8.9 H, Absolute Lymphocytes 1.8, Absolute Monocytes 0.5, Absolute Eosinophils 0, Absolute Basophils 0, PUBS MCHC 34.2 Initial ED EKG: normal axis, normal intervals, normal p-waves, normal QRS complex, normal sinus rhythm, LVH Prior EKG: unchanged Rhythm Strip: normal sinus rhythm Departure Departure Disposition: STILL A PATIENT Condition: Stable Clinical Impression Primary Impression: GI bleeding Qualifiers: GI bleed type/associated pathology: unspecified gastrointestinal hemorrhage type Qualified Code: K92.2 - Gastrointestinal hemorrhage, unspecified Secondary Impressions: Vasovagal near syncope Referrals: MICHELE CLAY,DELVIN Berger (PCP/Family) Departure Forms: Customer Survey General Discharge Information Admission Note Spoke With: MARICEL GARRIDO MD Documentation of Exam: Documentation of any treatments & extenuating circumstances including Concerns Regarding Discharge (functional status, medication knowledge or non-compliance, living conditions, etc.) that warrant an admission rather than observation: Serial lab exam serial neurologic exams GI evaluation medication adjustment ensure safety physical therapy continuing care discharge planning
--- NOTE | 2017-01-16 03:21 | NUR ---
RETURNED FROM CT/XR STEVAN WELL.
--- NOTE | 2017-01-16 03:29 | RADIOLOGY REPORT ---
EXAMINATIONS: PELVIS 1 VIEW AND LEFT HIP 2 VIEWS CLINICAL INFORMATION: Left hip pain after fall. COMPARISON: None. TECHNIQUE: A supine view of the pelvis is provided. AP neutral and frog-leg lateral views of the left hip are provided. FINDINGS: There are no fractures. There is mild hip joint narrowing bilaterally. Both femoral heads are seated within well-formed acetabula. No dysplastic changes are identified. The visualized bowel gas pattern is unremarkable. Within the visualized lower lumbar spine, mild degenerative change is demonstrable. IMPRESSION: Mild hip joint narrowing bilaterally. No evidence for acute injury.
--- NOTE | 2017-01-16 03:32 | CT SCAN REPORT ---
EXAMINATION: CT HEAD WITHOUT CONTRAST CLINICAL INFORMATION: Syncope. Trauma to head. COMPARISON: 06/09/2016. TECHNIQUE: Contiguous axial images of the brain were obtained without IV contrast. DLP: 601 mGy-cm. FINDINGS: There are no pathologic extra-axial fluid collections. The lateral, third, fourth ventricles are mildly prominent, but stable, age-appropriate and concordant with the appearance of the sulci. There is no evidence for acute intraparenchymal hemorrhage or infarct. There is a chronic infarction within the right temporoparietal region. Encephalomalacia has progressed since the prior exam. There is neither mass nor mass effect. There is no shift of midline structures. The paranasal sinuses and mastoid air cells are clear. There are no osseous lesions. IMPRESSION: No evidence for acute intracranial injury. 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
--- NOTE | 2017-01-16 05:03 | NUR ---
NO FURTHER VOMITING OR DIZZYNESS SINCE 30 MINUTES AFTER ARRIVAL. PT HAS NOT BEEN MOVED ALOT. RESTING COMF, AWARE OF ADMISSION DAUGHTER CHARLIE CALLED UPDATED ON ADMISSION.
--- NOTE | 2017-01-16 05:11 | History & Physical ---
CHELO GLYNN 01/16/17 0511: General Information and HPI MD Statement: I have seen and personally examined NELSON NOVOA and documented this H&P. The patient is a 82 year old F who presented with a patient stated chief complaint of status post fall with vertigo and coffee ground emesis. Source of Information: patient, family, old records Exam Limitations: no limitations History of Present Illness: This is a 82-year-old female with past medical history significant for transient ischemic attack in 2006, vertigo, Mnire's disease, hypertension, hyperlipidemia, rheumatic fever, mitral regurgitation, hypothyroidism, thyroid cancer status post thyroidectomy in 2007, osteoporosis, osteoarthritis presented to [facility] emergency department status post fall with vertigo and coffee ground emesis. Patient has long-standing history of Mnire's disease,vertigo for about 2 years. History of dizziness multiple times in the past. She follows for vertigo and Mnire's disease. She takes meclizine when necessary for dizziness and Zofran as needed for nausea. Recently came to [place] emergency room with the dizziness in December 2016. At around 9 PM patient took her meclizine and went to bed. However at around 12 :30 she woke up to use the restroom, at that time she felt dizzy and spinning of room. She felt black out but didn't lose consciousness. It was associated with sound echoing and decreased hearing. She hit her head on the wall as well as her Lt. hip. She became nauseous/vomited dark/cofee ground emesis which was new to her. In ED, she vomited dark vomitus x 1. Patient reports left hip pain, 10 out of 10, achy and sharp, nonradiating. Denies any numbness or tingling sensation denies any weakness or sensory changes. Patient denies any chest pain, racing of heart, difficulty breathing, abdominal pain, diarrhea, constipation, leg swelling. She denies any headache, weakness or sensory changes, gait or vision abnormalities. No sick contacts or travel history. No fever or chills. She didn't have EGD, most recent colonoscopy in 2014 showing diverticulosis. Allergies/Medications Allergies: Coded Allergies: Penicillins (UNKNOWN 06/09/16) PT. STATES SHE WAS TOLD SHE IS ALLERGIC BUT DOES NOT KNOW THE REACTION. Compliance With Home Meds: GOOD Past History Travel History Traveled to [place] past 21 day No Medical History Neurological: TIA, vertigo, ?MENIERES EENT: allergies, epistaxis, sinusitis Cardiovascular: hypertension, hyperlipidemia, mitral regurgitation Respiratory: NONE Gastrointestinal: NONE Hepatic: NONE Renal: NONE Musculoskeletal: NONE Psychiatric: NONE Endocrine: hypothyroidism Blood Disorders: NONE Cancer(s): thyroid cancer Surgical History Surgical History: non-contributory Past Family/Social History Psychosocial History Smoking Status: Never Smoked ETOH Use: denies use Illicit Drug Use: denies illicit drug use Sexual History Past Sexual History Unobtainable at this time Review of Systems Review of Systems Constitutional: Denies: chills, diaphoresis, fever, malaise, weakness, unexplained weight loss. EENTM: Reports: hearing changes. Denies: double vision, visual changes, nasal pain, throat pain. Cardiovascular: Denies: chest pain, edema, orthopena, palpitations, peripheral edema, syncope. Respiratory: Denies: cough, hemoptysis, orthopnea, short of breath, sputum production, stridor, wheezing. GI: Reports: nausea, vomiting. Denies: abdominal pain, constipation, diarrhea. Genitourinary: Denies: frequency, pain, urgency. Musculoskeletal: Reports: back pain, joint pain. Skin: Denies: no symptoms. Neurological/Psychological: Denies: anxiety, ataxia, dementia, headache, numbness, tremors. Exam & Diagnostic Data Last 24 Hrs of Vital Signs/I&O Vital Signs Date Time Temp Pulse Resp B/P Pulse O2 O2 Flow FiO2 Ox Delivery Rate 01/16 0515 98.8 78 18 178/73 95 Room Air 01/16 0058 98.4 90 19 168/81 98 Room Air Intake & Output 01/16 0800 01/16 0000 01/15 1600 Intake Total Output Total 200 Balance -200 Output, 200 Emesis Physical Exam General Appearance Alert, Oriented X3, Cooperative, No Acute Distress Skin No Rashes, No Breakdown HEENT Atraumatic, PERRLA, EOMI, Mucous Membr. moist/pink Neck Supple, No JVD Lymphatic Axillary nl, Cervical nl Cardiovascular Normal S1, Normal S2, No Murmurs Lungs Clear to Auscultation, Normal Air Movement Abdomen Normal Bowel Sounds, Soft, No Tenderness Neurological Normal Speech, Strength at 5/5 X4 Ext, Normal Tone, Sensation Intact, Cranial Nerves 3-12 NL, Reflexes 2+ Extremities No Clubbing, No Cyanosis, No Edema, left lateral hip tenderness Vascular Normal Pulses, Pulses Symmetrical Last 24 Hrs of Labs/Manuelito: Laboratory Tests 01/16/17 0600: CBC w Diff MAN DIFF ORDERED, RBC 4.61, MCV 81.7, MCH 27.5, RDW 13.1, MPV 6.8 L, Gran % 89.5 H, Lymphocytes % 5.8 L, Monocytes % 4.7, Eosinophils % 0, Basophils % 0 L, Absolute Granulocytes 8.0 H, Segmented Neutrophils 85 H, Band Neutrophils 5, Absolute Lymphocytes 0.5 L, Lymphocytes 4 L, Monocytes 6, Absolute Monocytes 0.4, Absolute Eosinophils 0, Absolute Basophils 0, Platelet Estimate VERIFIED BY SMEAR, Normocytic RBCs VERIFIED, Normochromic RBCs VERIFIED , PUBS MCHC 33.6 01/16/17 0411: Lactic Acid Cancelled 01/16/17 0115: Anion Gap 11, Estimated GFR > 60, BUN/Creatinine Ratio 21.3, Glucose 169 H, Lactic Acid 1.9, Calcium 9.2, Total Bilirubin 0.7, AST 23, ALT 32, Alkaline Phosphatase 53, Troponin I < 0.01, Total Protein 6.8, Albumin 3.7, Globulin 3.1, Albumin/Globulin Ratio 1.2, Lipase 191, PT 11.0, INR 1.05, APTT 28, CBC w Diff NO MAN DIFF REQ, RBC 4.76, MCV 81.7, MCH 27.9, RDW 13.0, MPV 6.9 L, Gran % 79.3 H, Lymphocytes % 15.7 L, Monocytes % 4.8, Eosinophils % 0.1, Basophils % 0.1, Absolute Granulocytes 8.9 H, Absolute Lymphocytes 1.8, Absolute Monocytes 0.5, Absolute Eosinophils 0, Absolute Basophils 0, PUBS MCHC 34.2 Diagnostic Data EKG Results EKG: NSR at 91, LAD, SC 192, QTc 493 prolongation Assessment/Plan Assessment: This is a 82-year-old female with past medical history significant for transient ischemic attack in 2006, vertigo, Mnire's disease, hypertension, hyperlipidemia, rheumatic fever, mitral regurgitation, hypothyroidism, thyroid cancer status post thyroidectomy in 2007, osteoporosis, osteoarthritis presented to [facility] emergency department status post fall with vertigo and coffee ground emesis. Patient has long-standing history of Mnire's disease,vertigo for about 2 years. History of dizziness multiple times in the past. She follows for vertigo and Mnire's disease. She takes meclizine when necessary for dizziness and Zofran as needed for nausea. Recently came to [place] emergency room with the dizziness in December 2016. V/S: 98.8F SC 78 RR 18 BP 178/73 95% on RA Labs: WBC 11.3, Hb/Hct 13.3/38.9, PT/PTT normal, BEP unremarkable, BUN/Cr 17/0.8 Lt. hip x-ray: Mild hip joint narrowing bilaterally. No evidence for acute injury. Head CT: No evidence for acute intracranial injury. 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 EKG: NSR at 91, LAD, SC 192, QTc 493 prolongation Problem list 1. Coffee-ground emesis 2. Left hip pain status post fall 3. vertigo/Mnire's disease 4. Hypertension 5. Hyperlipidemia 6. Hypothyroidism 7. Osteoporosis Coffee-ground emesis/upper GI bleed Patient presented with one episode of dark-colored blood in the vomitus. Denies any abdominal pain or epigastric discomfort. Reports nausea from vertigo and M nire's disease. Patient is on aspirin 81 mg for years for transient ischemic attack. She reports heartburn not on any medications. She denies taking any NSAIDS. H&H is stable on admission -13.3 and 38.9. Most possibly from gastritis/peptic ulcer disease/aspirin. * Admitted to general med floor for further management * Monitor vitals closely * Monitor closely for hypotension or active signs of GI bleeding * No NSAIDS * Hold aspirin * Tylenol as needed for pain * Monitor closely H AND H * Stool guaic * Nothing by mouth * IV fluids * IV PPI * Check CBC every 12 hours * Gastro consult Left hip pain Patient complains of left hip pain, 10 out of 10, sharp and achy, nonradiating. Denies any weakness or numbness. However range of movements are limited because of severe pain. She is status post fall secondary to vertigo/Mnire's disease. Fall most possibly secondary to dizziness from vertigo and Mnire's disease/GI bleeding. * Lt. hip x-ray: Mild hip joint narrowing bilaterally. No evidence for acute injury. * CAT scan left hip to rule out any acute fracture * Consider also consult if necessary * Pain management * Fall precautions * Symptomatic management with IV fluids Vertigo/Mnire's disease Patient has long-standing history of vertigo/Mnire's disease. She takes meclizine as needed for dizziness and jaw from as needed for nausea. She has history of dizziness presented to ER in the past. She reports a spinning sensation, nausea, vomiting and dizziness worsening with head movement. Also reports ringing sensation in the ears and associated hearing loss. Episodes lasts for couple of hours. * following Dr. Berry, ENT doctor * Will notify about admission * Continue meclizine as needed for dizziness * reglan as needed for nausea. EKG unremarkable except for QTC prolongation would avoid zofran. * Fall precautions * Will check orthostats * PT evaluation * Pain control * Gentle IV hydration Transient ischemic attack On aspirin 81 mg We'll hold aspirin for now Hypertension Continue with home dose of losartan 50 mg daily Hyperlipidemia Continue Lipitor Hypothyroidism Continue home dose of levothyroxine 0.075 mg daily Osteoporosis alendranate 70 mg every week DVT prophylaxis alps Patient is nothing by mouth- gastroenterology evaluation Full code Pain pathway Tylenol As Ranked By This Provider Problem List: 1. GI bleeding Qualifiers GI bleed type/associated pathology: unspecified gastrointestinal hemorrhage type Qualified Code: K92.2 - Gastrointestinal hemorrhage, unspecified 2. Vertigo 3. Lightheadedness 4. Dizziness Core Measures/Miscellaneous Acute Coronary Syndrome ACS Diagnosis: No Cerebrovascular Accident CVA/TIA Diagnosis: No Congestive Heart Failure CHF Diagnosis: No Venous Thromboembolism VTE Risk Factors: Age > 40 No [facility] VTE prophylaxis d/t: No contraindications No VTE Pharm Prophylaxis d/t: No contraindications VTE Diagnosis: No VTE Type: NONE VTE Confirmed by (Test): NONE Severe Sepsis Severe Sepsis Present: No Septic Shock Septic Shock Present: No Miscellaneous Documentation Attending Case Discussed With: MARICEL GARRIDO MD Primary Care Physician: DELVIN BAUTISTA MD Patient sees these Specialists ent doctor Level of Patient Care: General Medicine CHEYENNE GARCIA MD 01/16/17 0616: General Information and HPI Allergies/Medications Home Med list Alendronate Sodium 70 MG TABLET 70 MG PO QTUES OSTEOPOROSIS (Reported) TAKE WITH FULL GLASS OF WATER ON AN EMPTY STOMACH WHILE REMAINING IN AN UPRIGHT POSITION Aspirin (Ecotrin*) 81 MG TABLET. 1 TAB PO DAILY TIA (Reported) Reason to Stop at ADM: GI bleeding Atorvastatin (Atorvastatin Calcium) 10 MG TAB 1 TAB PO DAILY CHOLESTROL ( Reported) Bioflav,Lemon/Vit Bcomp,C (Lipo-Flavonoid Plus Caplet) 200 MG-100 MG TABLET 1 TAB PO DAILY VITAMIN (Reported) Ergocalciferol (Vitamin D2) (Vitamin D2) 50,000 UNIT CAPSULE 1 CAP PO MONTHLY supplement (Reported) Levothyroxine Sodium 0.075 MG TAB 1 TAB PO DAILY THYROID REMOVED (Reported) Losartan (Cozaar) 50 MG TAB 1 TAB PO DAILY HTN (Reported) Meclizine HCl 25 MG TABLET 1 TAB PO TIDPRN PRN VERTIGO Resident Review Statement Resident Statement: examined this patient, discussed with r d intern, agreed with r d intern, discussed with family, reviewed EMR data (avail), discussed with nursing , reviewed images, amended to note Other Findings: 82 yo female with pmh of questionable TIA(2006), vertigo, meniere disease following Dr. Berry, HTN, HLD, rheumatic fever with MR, hypothyrodism s/p throidectomy for cancer(2007), osteoarthritis came from home due to s/p fall with vertigo and coffe ground emesis. She was instructed to take meclizine when she feels dizzy by ENT doctor, and she took 1 pill before bed at 9pm. Around 12: 30 am, she went to bathroom, and the room began spinning. She felt black out but didn't lose consciousness. It was associated with sound echoing and decreased hearing. She hit her head on the wall as well as her Lt. hip. She became nauseous/vomited dark/cofee ground emesis which was new to her. In ED, she vomited dark vomitus x 1. While she was lying on the bed currently, she denies vertigo/nausea. She denies have chest pain, palpitation or abdominal pain. She has low back pain/Lt.sided hip pain after fall. She didn't have EGD, most recent colonoscopy in 2014 showing diverticulosis. V/S: 98.8F SC 78 RR 18 BP 178/73 95% on RA, on exam: pt is alert, oriented x 3, mild distress due to pain, PERRLA, EOM intact, dry mucosa, s/p thyroidectomy, no cervical LAD, regular rate, normal S1/S2, systolic murmurs, lung sounds clear, abdomen soft non tender, normal bowel sound, LE no edema, normal pulses, tenderness on Lt. lateral hip+, motor 5/5 moving all extremities, sensation intact, cranial nerves grossly intact. Labs: WBC 11.3, Hb/Hct 13.3/38.9, PT/PTT normal, BEP unremarkable, BUN/Cr 17/0.8 Lt. hip x-ray: Mild hip joint narrowing bilaterally. No evidence for acute injury. Head CT: No evidence for acute intracranial injury. 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 EKG: NSR at 91, LAD, SC 192, QTc 493 prolongation A/P 1. Coffee ground emesis: Pt has been taking aspirin 81mg after TIA. No NSAIDS use, she was using tyrenol as needed. Vital signs & Hb/Hct stable. Hold aspirin, guiac stool/gastric vomitus. NPO, IV fluid for now, give IV PPI, check CBC in AM. GI consult am. 2. Lt. hip pain s/p fall: Negative Lt. hip fracture on x-ray. Fall secondary to vertigo/meniere disease and possible symptomatic GI bleeding. EKG unremarkable except QTc prolongation, would avoid zofran, give reglan instead. Fall precaution. symptomatic management with IV fluid, meclizine and reglan. Check orthostatic BP. PT evaluation for gait. Fall precaution. Pain control with pain pathway. Will get CT Lt. hip as pt c/o severe pain with tenderness. 3. HTN: c/w losartan 4. HLD: c/w lipitor 5. Hypothyroidism: c/w home dose levothyroxine DVT ppx: ALPS, full code, pain pathway KYM CLAY,ONI 01/16/17 1115: Attending MD Review Statement Attending Statement Attending MD Statement: examined this patient, discuss w/resident/PA/HEAD TURBINE OPERATOR, agreed w/resident/PA/HEAD TURBINE OPERATOR, discussed with family, reviewed EMR data (avail), discussed with nursing, amended to note Attending Assessment/Plan: Patient is a very pleasant 82-year-old female with history of chronic vertigo. This has been going on for over a year. She follows up with an ENT service every 3 months as an outpatient. She is on meclizine when necessary with occasional benefits. She reported experiencing similar symptoms of vertigo overnight and took a dose of her mechanism. She awoke to use the bathroom and sustained a mechanical fall down the stairs and presented to the emergency room for evaluation. She was monitored by the ER staff and she was obtained of the hip are reported as being negative. She also reported vomiting induced by the dizziness while at home. She had another episode in the emergency room. Emesis from would occasions contained coffee ground material raising concern for gastrointestinal bleeding. She was admitted to the inpatient medical service for further evaluation. HEENT: Anicteric, no pallor, no nystagmus Neck: Supple with no JVD or bruit. Heart: S1-S2 regular with no audible normal Lungs: Good entry bilaterally, clear to auscultation Abdomen: Soft, nontender with normal bowel sounds Extremities: No pedal edema. Limited range of motion left thigh secondary to pain. No thigh swelling or point tenderness. No hematoma. Recommendations: -Following my evaluation of the patient and her complaint of ongoing pain I recommended a CT scan to be done for further imaging. The CT scan reveals no evidence of proximal femoral fracture however he does show an acute nondisplaced fracture of the left superior and inferior pubic rami. -Given her ongoing pain and the acute fracture I do not anticipate her going home in the next 24 hours. -Admit to the inpatient general medical service for further management. -Pain control with IV Tylenol -Physical therapy and orthopedic therapy evaluation. -GI consultation appreciated. Since patient will remain in the hospital overnight we will keep her nothing by mouth past midnight for EGD in the morning. We'll monitor her hemoglobin every 12 hours to ensure stability. We' ll provide blood transfusion as clinically warranted. -Her vertigo is chronic, unchanged from baseline. Will continue meclizine as needed. My recommendation is for her to continue follow-up with her ENT service as an outpatient.
--- NOTE | 2017-01-16 06:02 | NUR ---
HOUSESTAFF IN TO SEE PT./ STABLE MENTATING WELL
[2017-01-16] MEDS ORDERED: ASPIRIN EC81 M1 PO (06:08)
[2017-01-16 06:19] LABS: ABSOLUTE BASOPHIL COUNT 0 /CUMM (0.0-0.2); ABSOLUTE EOSINOPHIL COUNT 0 /CUMM (0.0-0.7); ABSOLUTE LYMPH COUNT 0.5 /CUMM (1.2-3.4); ABSOLUTE MONOCYTE COUNT 0.4 /CUMM (0.10-0.60); BASOPHIL % 0 % (0.0-2.0); EOSINOPHIL % 0 % (0-5); GRANULOCYTE % 89.5 % (42.2-75.2); HEMATOCRIT 37.7 % (37-47); MEAN CORPUSCULAR HGB 27.5 PG (27.0-31.0); MEAN CORPUSCULAR HGB CONC 33.6 G/DL (33.0-37.0); MEAN CORPUSCULAR VOLUME 81.7 FL (81.0-99.0); MEAN PLATELET VOLUME 6.8 FL (7.4-10.4); PLATELET COUNT 198 /CUMM (130-400); RBC DISTRIBUTION WIDTH 13.1 % (11.5-14.5); RED BLOOD CELL CT 4.61 /CUMM (4.20-5.40); WHITE BLOOD CELL COUNT 8.9 /CUMM (4.8-10.8)
--- NOTE | 2017-01-16 06:31 | NUR ---
CONT TO AWAIT BED ASSIGNMENT.
--- NOTE | 2017-01-16 06:52 | NUR ---
REPORT GIVEN TO HILLARY. WILL MED WITH SYNTHYROID AND HOLD IVF OF D51/2 NS FLOOR WILL PREFER TO HANG UPSTAIRS.
--- NOTE | 2017-01-16 08:37 | Cons- Gastroenterology ---
General Information and HPI Consulting Request Date of Consult: 01/16/17 Requested By: RADHIKA CLAY,MARICEL Reason for Consult: Hematemesis. nausea and vomiting. Source of Information: patient Exam Limitations: no limitations History of Present Illness: Ms. Saunders is an 82 year old female with a history of meneires disease and vertigo who presented to [facility] yesterday evening after a fall an episode of coffee-ground emesis. She has a history of vertigo for which she takes meclizine and Zofran as needed. Last night before going to bed she took meclizine, but when she awoke to use the restroom she had an episode of vertigo which resulted in a fall, but she did not lose consciousness. She did hit her head in the fall. After falling she became nauseous and then vomited up coffee ground material, but she did not vomit up any fresh blood. She complained of hip pain after the fall, but she has been without any significant abdominal pain. Since the vomiting she has not had any bowel movements. She has been without any complaints of bright blood per rectum or any black tarry stool. She has normal bowel movements without any significant diarrhea or constipation and she also denies any significant heartburn or dysphagia. She does take a daily baby aspirin for cardiac prophylaxis which does not lead to any GI discomfort and she denies using other NSAIDs. On presentation to the emergency room she was hemodynamically stable and she has not had any further vomiting since admission. Her admission hemoglobin was 13.3 and was 12.7 when repeated at 6 AM this morning. She has been kept nothing by mouth and was started on IV Protonix. Allergies/Medications Allergies: Coded Allergies: Penicillins (UNKNOWN 06/09/16) PT. STATES SHE WAS TOLD SHE IS ALLERGIC BUT DOES NOT KNOW THE REACTION. Home Med List: Alendronate Sodium 70 MG TABLET 70 MG PO QTUES OSTEOPOROSIS (Reported) TAKE WITH FULL GLASS OF WATER ON AN EMPTY STOMACH WHILE REMAINING IN AN UPRIGHT POSITION Aspirin (Ecotrin*) 81 MG TABLET. 1 TAB PO DAILY TIA (Reported) Reason to Stop at ADM: GI bleeding Atorvastatin (Atorvastatin Calcium) 10 MG TAB 1 TAB PO DAILY CHOLESTROL ( Reported) Bioflav,Lemon/Vit Bcomp,C (Lipo-Flavonoid Plus Caplet) 200 MG-100 MG TABLET 1 TAB PO DAILY VITAMIN (Reported) Ergocalciferol (Vitamin D2) (Vitamin D2) 50,000 UNIT CAPSULE 1 CAP PO MONTHLY supplement (Reported) Levothyroxine Sodium 0.075 MG TAB 1 TAB PO DAILY THYROID REMOVED (Reported) Losartan (Cozaar) 50 MG TAB 1 TAB PO DAILY HTN (Reported) Meclizine HCl 25 MG TABLET 1 TAB PO TIDPRN PRN VERTIGO Current Medications: Current Medications Sig/Arun Start time Last Medication Dose Route Stop Time Status Admin Acetaminophen 325 MG Q6P PRN 01/16 0645 AC PO Acetaminophen 1,000 MG Q6P PRN 01/16 0645 AC IV Acetaminophen/ 1 TAB Q6P PRN 01/16 0645 AC 01/16 Hydrocodone Bitart PO 0822 Alendronate Sodium 70 MG QTUES 01/18 0700 AC PO Atorvastatin Calcium 10 MG DAILY 01/16 1000 AC PO Cholecalciferol 1,000 IU DAILY 01/16 1000 AC PO Dextrose/Sodium 1,000 ML Q13H 01/16 0615 AC Chloride IV Levothyroxine Sodium 0.075 MG DAILY AC 01/16 0700 AC 01/16 PO 0704 Lorazepam 0 .STK-MED ONE 01/16 225 DC .ROUTE Lorazepam 0.5 MG ONCE ONE 01/16 200 DC 01/16 IV 01/16 Losartan Potassium 50 MG DAILY 01/16 1000 AC PO Meclizine HCl 25 MG TIDPRN PRN 01/16 0615 AC PO Metoclopramide HCl 10 MG Q6P PRN 01/16 0715 AC IV Non-Formulary 0 SEE ADMIN CRITERIA 01/16 615 CAN Medication ANY Ondansetron HCl 0 .STK-MED ONE 01/16 135 DC .ROUTE Ondansetron HCl 4 MG ONCE ONE 01/16 115 DC 01/16 IV 01/16 Pantoprazole Sodium 40 MG DAILY 01/16 1000 AC IV Pantoprazole Sodium 0 .STK-MED ONE 01/16 135 DC IV Pantoprazole Sodium 40 MG ONCE ONE 01/16 115 DC 01/16 IV 01/16 Potassium Chloride 40 MEQ .Q10H 01/16 0515 CAN Dextrose/Water 1,000 ML IV Scopolamine HBr 1 PAT ONE ONE 01/16 200 DC 01/16 TOP 01/16 Sodium Chloride 1,000 ML BOLUS ONE 01/16 115 DC 01/16 IV 01/16 0214 0139 Past History Travel History Traveled to [place] past 21 day No Medical History Blood Transfusion Hx: Yes Neurological: TIA, vertigo, ?MENIERES EENT: allergies, cataracts, epistaxis, sinusitis Cardiovascular: hypertension, hyperlipidemia, mitral regurgitation Respiratory: NONE Gastrointestinal: NONE Hepatic: NONE Renal: NONE Musculoskeletal: NONE, osteoarthritis Psychiatric: NONE Endocrine: hypothyroidism Blood Disorders: NONE 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 Home Services at Home: None Smoking Status: Never Smoked ETOH Use: denies use Illicit Drug Use: denies illicit drug use Review of Systems Review of Systems Constitutional: Denies: no symptoms. EENTM: Reports: hearing changes. Denies: double vision, visual changes. Cardiovascular: Denies: chest pain, edema, syncope. Respiratory: Denies: no symptoms. GI: Reports: see HPI. Genitourinary: Denies: no symptoms. Musculoskeletal: Reports: back pain, joint pain. Skin: Denies: no symptoms. Neurological/Psychological: Denies: no symptoms. Hematologic/Endocrine: Reports: bleeding. Immunologic/Allergic: Denies: no symptoms. All Other Systems: Reviewed and Negative Exam & Diagnostic Data Vital Signs and I&O Vital Signs Date Time Temp Pulse Resp B/P Pulse O2 O2 Flow FiO2 Ox Delivery Rate 01/16 0515 98.8 78 18 178/73 95 Room Air 01/16 0058 98.4 90 19 168/81 98 Room Air Intake & Output 01/16 1600 01/16 0400 01/15 1600 01/15 0400 01/14 1600 01/14 0400 Intake Total Output Total 200 Balance -200 Output, 200 Emesis Patient 125 lb Weight Physical Exam General Appearance: well developed/nourished, no apparent distress, alert, comfortable Head: atraumatic, normal appearance Eyes: Bilateral: normal appearance. Ears, Nose, Throat: normal pharynx, normal ENT inspection Neck: normal inspection, supple, full range of motion Respiratory: normal breath sounds, chest non-tender, no respiratory distress Cardiovascular: regular rate/rhythm Gastrointestinal: normal bowel sounds, soft, non-tender, no organomegaly Rectal: deferred Back: normal inspection, normal range of motion Extremities: normal inspection, no edema Neurologic/Psych: no motor/sensory deficits, awake, alert, oriented x 3 Skin: intact, normal color, warm/dry Results Pertinent Lab Results: Laboratory Tests 01/16 01/16 0600 0411 Chemistry Lactic Acid Cancelled Hematology CBC w Diff MAN DIFF ORDERED WBC (4.8 - 10.8 /CUMM) 8.9 RBC (4.20 - 5.40 /CUMM) 4.61 Hgb (12.0 - 16.0 G/DL) 12.7 Hct (37 - 47 %) 37.7 MCV (81.0 - 99.0 FL) 81.7 MCH (27.0 - 31.0 PG) 27.5 RDW (11.5 - 14.5 %) 13.1 Plt Count (130 - 400 /CUMM) 198 MPV (7.4 - 10.4 FL) 6.8 L Gran % (42.2 - 75.2 %) 89.5 H Lymphocytes % (20.5 - 51.1 %) 5.8 L Monocytes % (1.7 - 9.3 %) 4.7 Eosinophils % (0 - 5 %) 0 Basophils % (0.0 - 2.0 %) 0 L Absolute Granulocytes (1.4 - 6.5 /CUMM) 8.0 H Segmented Neutrophils (42.2 - 75.2 %) 85 H Band Neutrophils (0.0 - 5.0 %) 5 Absolute Lymphocytes (1.2 - 3.4 /CUMM) 0.5 L Lymphocytes (20.5 - 51.1 %) 4 L Monocytes (1.7 - 9.3 %) 6 Absolute Monocytes (0.10 - 0.60 /CUMM) 0.4 Absolute Eosinophils (0.0 - 0.7 /CUMM) 0 Absolute Basophils (0.0 - 0.2 /CUMM) 0 Platelet Estimate (ADEQUATE) VERIFIED BY SMEAR Normocytic RBCs VERIFIED Normochromic RBCs VERIFIED PUBS MCHC (33.0 - 37.0 G/DL) 33.6 01/16 0115 Chemistry Sodium (137 - 145 mmol/L) 142 Potassium (3.5 - 5.1 mmol/L) 3.7 Chloride (98 - 107 mmol/L) 105 Carbon Dioxide (22 - 30 mmol/L) 25 Anion Gap (5 - 16) 11 BUN (7 - 17 mg/dL) 17 Creatinine (0.5 - 1.0 mg/dL) 0.8 Estimated GFR (>60 ml/min) > 60 BUN/Creatinine Ratio (7 - 25 %) 21.3 Glucose (65 - 99 mg/dL) 169 H Lactic Acid (0.7 - 2.1 mmol/L) 1.9 Calcium (8.4 - 10.2 mg/dL) 9.2 Total Bilirubin (0.2 - 1.3 mg/dL) 0.7 AST (14 - 36 U/L) 23 ALT (9 - 52 U/L) 32 Alkaline Phosphatase (<127 U/L) 53 Troponin I (< 0.11 ng/ml) < 0.01 Total Protein (6.3 - 8.2 g/dL) 6.8 Albumin (3.5 - 5.0 g/dL) 3.7 Globulin (1.9 - 4.2 gm/dL) 3.1 Albumin/Globulin Ratio (1.1 - 2.2 %) 1.2 Lipase (23 - 300 U/L) 191 Coagulation PT (9.4 - 12.5 SEC) 11.0 INR (0.90 - 1.19) 1.05 APTT (25 - 37 SEC) 28 Hematology CBC w Diff NO MAN DIFF REQ WBC (4.8 - 10.8 /CUMM) 11.3 H RBC (4.20 - 5.40 /CUMM) 4.76 Hgb (12.0 - 16.0 G/DL) 13.3 Hct (37 - 47 %) 38.9 MCV (81.0 - 99.0 FL) 81.7 MCH (27.0 - 31.0 PG) 27.9 RDW (11.5 - 14.5 %) 13.0 Plt Count (130 - 400 /CUMM) 217 MPV (7.4 - 10.4 FL) 6.9 L Gran % (42.2 - 75.2 %) 79.3 H Lymphocytes % (20.5 - 51.1 %) 15.7 L Monocytes % (1.7 - 9.3 %) 4.8 Eosinophils % (0 - 5 %) 0.1 Basophils % (0.0 - 2.0 %) 0.1 Absolute Granulocytes (1.4 - 6.5 /CUMM) 8.9 H Absolute Lymphocytes (1.2 - 3.4 /CUMM) 1.8 Absolute Monocytes (0.10 - 0.60 /CUMM) 0.5 Absolute Eosinophils (0.0 - 0.7 /CUMM) 0 Absolute Basophils (0.0 - 0.2 /CUMM) 0 PUBS MCHC (33.0 - 37.0 G/DL) 34.2 Assessment/Plan Assessment/Recommendations: Assessment: Ms. Saunders is an 82-year-old female with a history of vertigo who presented last night with an episode of coffee-ground emesis which followed a fall related to her vertigo symptoms. Her hemoglobin has been stable since admission and the minimal fall is likely secondary to hemodilution. She has not had any further hematemesis and as her BUN to creatinine ratio is not significantly elevated, she is hemodynamically stable, and has not had any bright blood per rectum or melena it is unlikely that she is having a hemodynamically significant GI bleed. Considering she has never had an upper endoscopy it would be reasonable perform a diagnostic one to assess the etiology of the hematemesis and rule out an occult malignancy, but if she remains without any further vomiting and her hemoglobin remains stable this can be pursued as an outpatient. The differential diagnosis of her hematemesis includes a Charline- Larios tear, peptic ulcer disease as she is on a baby aspirin without any GI prophylaxis, AVMs, an occult malignancy, a dieulafoys lesion, or erosive esophagitis. Recommendations: 1. Advance diet as tolerated. 2. Change to an oral PPI for GI prophylaxis. 3. Maintain 2 large-bore IVs at all times. 4. Follow CBCs every 12 hours and transfuse as needed to keep hemoglobin greater than 7 or as per cardiology recommendations. 5. Would restart her baby aspirin if it is medically indicated for cardiac prophylaxis. 6. Notify GI for signs of active bleeding. 7. Use anti-emetics as needed for any nausea or vomiting. 8. If she remains stable and tolerates a diet consideration should be given to discharge the patient home later today to pursue an outpatient upper endoscopy. Alternatively, if her diet is not able to be advanced or if she develops signs of active overt GI bleeding an inpatient endoscopy will be pursued. I will continue to follow this patient and make further recommendations based on her clinical course. Problem List: 1. GI bleeding Copies To: MICHELE CLAY,DELVIN Berger Consult Acknowledgment - Thank you for your consult request.
--- NOTE | 2017-01-16 10:01 | CT SCAN REPORT ---
EXAMINATION: CT LOWER EXTREMITY WITHOUT CONTRAST, LEFT CLINICAL INFORMATION: Status post fall. Left hip tenderness. Rule out fracture. COMPARISON: Radiographs from the same date at 1:14 AM TECHNIQUE: Multidetector volumetric imaging was obtained through the left hip without contrast. Multiplanar reformatted images in coronal and sagittal orientations were submitted. DLP: 2139.4 mGy-cm FINDINGS: There is a nondisplaced, minimally comminuted oblique fracture through the left inferior pubic ramus. A subtle, corresponding nondisplaced superior pubic ramus fracture is present at the junction with the acetabulum (image 171/468 of series 2). No additional fractures are identified in the left hip. The left femoral head and femoral neck are intact. Acetabular roof is unremarkable. Mild degenerative arthritis in the left hip is characterized primarily by marginal osteophytes. Enthesopathic spurs are present at the greater trochanter. Mild to moderate degenerative arthritis is also present in the left SI joint. Degenerative disc disease at L5-S1 is partially included on this study. Diverticulosis is present within the sigmoid colon. No acute diverticulitis. Calcific atherosclerosis is present within the femoral and iliac arteries. Hip musculature is unremarkable. IMPRESSION: Acute nondisplaced fractures of the left superior and inferior pubic rami. No evidence of a proximal femoral fracture. Mild degenerative arthritis in the left hip and SI joints
--- NOTE | 2017-01-16 10:48 | NUR ---
NSG NOTE: PT ARRIVED TO FLOOR FROM ER WITH DISTRIBUTION. PT AWAKE, A/OX3, ON ROOM AIR, IV SITE INTACT, PT C/O PAIN TO LEFT HIP 10/10, C/O FEELING DIZZY WITH REPOSITIONING, FALL PRECAUTIONS IN PLACE, ALPS IN PLACE, PT SETTLED AND RESTING COMFORTABLY IN BED, FAMILY AT BEDSIDE, WILL CONTINUE TO MONITOR.
[2017-01-16 13:52] VITALS: BP 150/72
--- NOTE | 2017-01-16 17:33 | Cons- Orthopedic ---
General Information and HPI Consulting Request Date of Consult: 01/16/17 Requested By: RADHIKA CLAY,MARICEL Reason for Consult: Left nondisplaced superior and inferior rami fractures Source of Information: patient, EMS History of Present Illness: 82yo F presents following a syncopal episode; she complains of left hip pain and was found to have non-displaced fractures of the left superior and inferior rami. Patient states she has a history of vertigo; was feeling nauseous and attempted to get up from a chair to go to the bathroom. She said the room started to spin and she fell; she and her think she hit the wall with her left side before falling to the ground. Complain of left neck and shoulder pain, left hip pain, and left anterior ankle pain. Allergies/Medications Allergies: Coded Allergies: Penicillins (UNKNOWN 06/09/16) PT. STATES SHE WAS TOLD SHE IS ALLERGIC BUT DOES NOT KNOW THE REACTION. Home Med List: Alendronate Sodium 70 MG TABLET 70 MG PO QTUES OSTEOPOROSIS (Reported) TAKE WITH FULL GLASS OF WATER ON AN EMPTY STOMACH WHILE REMAINING IN AN UPRIGHT POSITION Aspirin (Ecotrin*) 81 MG TABLET.DR 1 TAB PO DAILY TIA (Reported) Reason to Stop at ADM: GI bleeding Atorvastatin (Atorvastatin Calcium) 10 MG TAB 1 TAB PO DAILY CHOLESTROL ( Reported) Bioflav,Lemon/Vit Bcomp,C (Lipo-Flavonoid Plus Caplet) 200 MG-100 MG TABLET 1 TAB PO DAILY VITAMIN (Reported) Ergocalciferol (Vitamin D2) (Vitamin D2) 50,000 UNIT CAPSULE 1 CAP PO MONTHLY supplement (Reported) Levothyroxine Sodium 0.075 MG TAB 1 TAB PO DAILY THYROID REMOVED (Reported) Losartan (Cozaar) 50 MG TAB 1 TAB PO DAILY HTN (Reported) Meclizine HCl 25 MG TABLET 1 TAB PO TIDPRN PRN VERTIGO Current Medications: Current Medications Sig/Arun Start time Last Medication Dose Route Stop Time Status Admin Acetaminophen 325 MG Q6P PRN 01/16 0645 AC PO Acetaminophen 1,000 MG Q6P PRN 01/16 0645 AC IV Acetaminophen/ 1 TAB Q6P PRN 01/16 0645 AC 01/16 Hydrocodone Bitart PO 0822 Alendronate Sodium 70 MG QTUES 01/18 0700 AC PO Aspirin Buffered 81 MG DAILY 01/16 1347 AC PO Atorvastatin Calcium 10 MG DAILY 01/16 1000 AC 01/16 PO 0956 Cholecalciferol 1,000 IU DAILY 01/16 1000 AC 01/16 PO 0956 Dextrose/Sodium 1,000 ML Q13H 01/16 0615 DC 01/16 Chloride IV 0956 Levothyroxine Sodium 0.075 MG DAILY AC 01/16 0700 AC 01/16 PO 0704 Lorazepam 0 .STK-MED ONE 01/165 DC .ROUTE Lorazepam 0.5 MG ONCE ONE 01/16 0200 DC 01/16 IV 01/16 020 0228 Losartan Potassium 50 MG DAILY 01/16 1000 AC 01/16 PO 0956 Meclizine HCl 25 MG TIDPRN PRN 01/16 0615 AC PO Metoclopramide HCl 10 MG Q6P PRN 01/16 0715 AC IV Non-Formulary 0 SEE ADMIN CRITERIA 01/16 615 CAN Medication ANY Ondansetron HCl 0 .STK-MED ONE 01/16 013 DC .ROUTE Ondansetron HCl 4 MG ONCE ONE 01/16 011 DC 01/16 IV 01/16 0116 0139 Pantoprazole Sodium 40 MG DAILY 01/16 1000 AC 01/16 IV 0957 Pantoprazole Sodium 0 .STK-MED ONE 01/16 135 DC IV Pantoprazole Sodium 40 MG ONCE ONE 01/16 011 DC 01/16 IV 01/16 0116 0139 Potassium Chloride 40 MEQ .Q10H 01/16 0515 CAN Dextrose/Water 1,000 ML IV Scopolamine HBr 1 PAT ONE ONE 01/16 0200 DC 01/16 TOP 01/16 020 0228 Sodium Chloride 1,000 ML BOLUS ONE 01/16 011 DC 01/16 IV 01/16 0214 0139 Past History Medical History Blood Transfusion Hx: Yes Neurological: TIA, vertigo, ?MENIERES EENT: allergies, cataracts, epistaxis, sinusitis Cardiovascular: hypertension, hyperlipidemia, mitral regurgitation Respiratory: NONE Gastrointestinal: NONE Hepatic: NONE Renal: NONE Musculoskeletal: NONE, osteoarthritis Psychiatric: NONE Endocrine: hypothyroidism Blood Disorders: NONE 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 Home Services at Home: None Smoking Status: Never Smoked ETOH Use: denies use Illicit Drug Use: denies illicit drug use Exam & Diagnostic Data Vital Signs and I&O Vital Signs Date Time Temp Pulse Resp B/P Pulse O2 O2 Flow FiO2 Ox Delivery Rate 01/16 1352 98.4 102 20 150/72 95 Room Air 01/16 1100 Room Air 01/16 0956 78 178/73 01/16 0515 98.8 78 18 178/73 95 Room Air 01/16 0058 98.4 90 19 168/81 98 Room Air Intake & Output 01/16 1600 01/16 0801/16 0000 01/15 1600 01/15 0000 Intake Total Output Total 200 Balance -200 Output, 200 Emesis Patient 125 lb Weight Physical Exam: Elderly female laying supine in bed. Alert, awake, no distress. at bedside. Exam: Mild tenderness to palpation of left neck and clavicle; no ecchymosis or abnormalities noted. Able to extend left shoulder and flex/extend left elbow without pain. Small contusion over posterior left elbow; minimal tenderness Tender to palpation over anterior left hip/groin Discomfort with log roll of left leg. Nontender over left distal thigh, knee, and calf. Tenderness over left anterior ankle; no medial or lateral malleolar tenderness Sensation intact to light touch over bilateral feet. Intact DF/PF bilateral feet. No tenderness or limitations to motion of RUE or RLE. Imaging Results: CT pelvis: There is a nondisplaced, minimally comminuted oblique fracture through the left inferior pubic ramus. A subtle, corresponding nondisplaced superior pubic ramus fracture is present at the junction with the acetabulum (image 171/468 of series 2). No additional fractures are identified in the left hip. The left femoral head and femoral neck are intact. Acetabular roof is unremarkable. Mild degenerative arthritis in the left hip is characterized primarily by marginal osteophytes. Enthesopathic spurs are present at the greater trochanter. Assessment/Plan Assessment/Plan 82yo F with history of vertigo presents with left nondisplaced superior/inferior pubic rami fractures s/p fall. Also being evaluated for hematemesis. 1. Protected partial weight bearing left leg 2. Mobilize with PT 3. Pain control 4. May consider imaging of left clavicle, elbow, or wrist if persistent pain or difficulty with mobilization. Patient may follow up in clinic for reevaluation 2wks after discharge. Consult Acknowledgment - Thank you for your consult request. Attending MD Review Statement Attending Statement Attending MD Statement: examined this patient, discuss w/resident/PA/[employer], reviewed EMR data (avail), reviewed images
[2017-01-16 19:56] LABS: ABSOLUTE BASOPHIL COUNT 0 /CUMM (0.0-0.2); ABSOLUTE EOSINOPHIL COUNT 0 /CUMM (0.0-0.7); ABSOLUTE GRANULOCYTE CT 5.1 /CUMM (1.4-6.5); ABSOLUTE LYMPH COUNT 0.7 /CUMM (1.2-3.4); ABSOLUTE MONOCYTE COUNT 0.5 /CUMM (0.10-0.60); BASOPHIL % 0 % (0.0-2.0); EOSINOPHIL % 0.2 % (0-5); GRANULOCYTE % 80.2 % (42.2-75.2); HEMATOCRIT 36.1 % (37-47); MEAN CORPUSCULAR HGB 27.5 PG (27.0-31.0); MEAN CORPUSCULAR HGB CONC 33.4 G/DL (33.0-37.0); MEAN CORPUSCULAR VOLUME 82.3 FL (81.0-99.0); MEAN PLATELET VOLUME 7.1 FL (7.4-10.4); PLATELET COUNT 196 /CUMM (130-400); RBC DISTRIBUTION WIDTH 13.9 % (11.5-14.5); RED BLOOD CELL CT 4.39 /CUMM (4.20-5.40); WHITE BLOOD CELL COUNT 6.3 /CUMM (4.8-10.8)
--- NOTE | 2017-01-16 20:05 | NUR ---
ALERT AND ORIENTED X 3. VITAL SIGNS STABLE. DENIES CHEST PAIN. + PULSES ON ROOM AIR. MEDICATION GIVEN FOR DISCOMFORT. PATIENT RESTING AT THIS TIME. WILL CONTINUE TO MONITOR
[2017-01-16 22:23] VITALS: BP 140/70
[2017-01-17 06:25] VITALS: BP 154/84
[2017-01-17 07:52] LABS: ABSOLUTE BASOPHIL COUNT 0 /CUMM (0.0-0.2); ABSOLUTE EOSINOPHIL COUNT 0 /CUMM (0.0-0.7); ABSOLUTE LYMPH COUNT 0.7 /CUMM (1.2-3.4); ABSOLUTE MONOCYTE COUNT 0.5 /CUMM (0.10-0.60); BASOPHIL % 0.2 % (0.0-2.0); EOSINOPHIL % 0 % (0-5); GRANULOCYTE % 76.8 % (42.2-75.2); HEMATOCRIT 35.4 % (37-47); MEAN CORPUSCULAR HGB 27.6 PG (27.0-31.0); MEAN CORPUSCULAR HGB CONC 33.6 G/DL (33.0-37.0); MEAN CORPUSCULAR VOLUME 82.4 FL (81.0-99.0); MEAN PLATELET VOLUME 6.9 FL (7.4-10.4); PLATELET COUNT 175 /CUMM (130-400); RBC DISTRIBUTION WIDTH 13.6 % (11.5-14.5); WHITE BLOOD CELL COUNT 5.2 /CUMM (4.8-10.8)
--- NOTE | 2017-01-17 08:16 | Proc Note Endoscopy ---
Endoscopy Procedure Medical History: unchanged (see [employer] consult) Mental Status: alert/oriented Heart/Lung Eval Prior to Sedation: within normal limits Candidate for Sedation? Yes Procedure Date: 01/17/17 Procedure Type: EGD w/biopsy Hair Sample Matcher: MARICEL GARRIDO MD ASA Classification: II Indications: Hematemesis. Instrument: diagnostic gastroscope Meds Received: MAC Patient's Tolerance: good Complications: none Extent Reached: second part of duodenum Procedure: After getting written informed consent the patient was placed in the left lateral decubitus position with pulse oximetry, cardiac monitoring, and supplemental oxygen given. A bite block was inserted and IV sedation was given until the desired effect was achieved. A high definition upper Olympus endoscope was then inserted into the mouth and advanced to the second portion of the duodenum with little difficulty. Retroflexed views and photodocumentation was obtained. Findings: Esophagus: The esohpageal mucosa was grossly normal in appearance and there was a normal-appearing Z line at 40 cm from the incisors. There were no esophageal strictures, masses, ulcers, erosions, or a Charline-Larios tear appreciated. Stomach: The gastric mucosa was atrophic in appearance and there were patchy erythematous changes in the antrum and the fundus with a few erosions appreciated and the fundus. There were no ulcers or masses appreciated. Distention and peristalsis of the stomach appeared normal. Retroflexed views were normal did not reveal a significant hiatal hernia. Random biopsies were obtained from the antrum with cold biopsy forceps and were sent to pathology for further evaluation. Duodenum: The duodenal bulb, sweep and folds were grossly normal in appearance and there was bile appreciated throughout to the second portion of the duodenum. Impression: 1. 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 2. No active bleeding appreciated. Recommendations: 1. Her diet should be advanced as tolerated. 2. Discontinue IV Protonix and place on 20 mg omeprazole daily for now. 3. She should follow up the pathology results with me as an outpatient. 4. Antiemetics should be administered as needed. 5. She should avoid or minimize her use of NSAIDs. CC: MICHELE CLAY,DELVIN Berger
--- NOTE | 2017-01-17 08:47 | PN- Housestaff ---
WILL CLAY,ELFEGO 01/17/17 0847: Subjective Follow-up For: mechanical fall non displaced fracture Subjective: Patient seen and examined bedside. She does endorse some mild pain on her left side around the hip area where she was found to have a nondisplaced fracture. She does not endorse any other acute complaint including chest pain, palpitation , shortness of breath, fever, chills, nausea, vomiting, abdominal pain or dysuria. No acute overnight event reported by nursing staff. Review of Systems Constitutional: Reports: see HPI. Objective Last 24 Hrs of Vital Signs/I&O Vital Signs Date Time Temp Pulse Resp B/P Pulse O2 O2 Flow FiO2 Ox Delivery Rate 01/17 1424 98.8 91 20 118/72 94 Room Air 01/17 1016 101 154/84 01/17 0956 Room Air 01/17 0625 99.0 101 20 154/84 94 01/16 2223 99.1 101 19 140/70 91 Room Air 01/16 1600 Room Air Intake & Output 01/17 1600 01/17 0800 01/17 0000 Intake Total 670 60 Output Total 500 200 Balance 170 -140 Intake, IV 150 Intake, Oral 520 60 Number 0 Bowel Movements Output, Urine 500 200 Physical Exam General Appearance: Alert, Oriented X3, Cooperative Skin: No Rashes, No Breakdown, No Significant Lesion Cardiovascular: Regular Rate, Normal S1, Normal S2 Lungs: Clear to Auscultation, Normal Air Movement Abdomen: Normal Bowel Sounds, Soft, No Tenderness Neurological: Normal Tone Current Medications: Current Medications Sig/Arun Start time Last Medication Dose Route Stop Time Status Admin Acetaminophen 1,000 MG ONCE ONE 01/17 1000 DC 01/17 IV 01/17 1001 1017 Acetaminophen 325 MG Q6P PRN 01/16 0645 AC PO Acetaminophen 1,000 MG Q6P PRN 01/16 0645 DC 01/16 IV 1830 Acetaminophen/ 1 TAB Q6P PRN 01/16 0645 AC 01/16 Hydrocodone Bitart PO 0822 Alendronate Sodium 70 MG QTUES 01/18 0700 AC PO Aspirin Buffered 81 MG DAILY 01/16 1347 AC 01/17 PO 1016 Atorvastatin Calcium 10 MG DAILY 01/16 1000 AC 01/17 PO 1016 Chlorhexidine 1 GM .STK-MED ONE 01/17 0931 DC Gluconate TOP 01/17 0932 Cholecalciferol 1,000 IU DAILY 01/16 1000 AC 01/17 PO 1015 Levothyroxine Sodium 0.075 MG DAILY AC 01/16 0700 AC 01/17 PO 0515 Losartan Potassium 50 MG DAILY 01/16 1000 AC 01/17 PO 1016 Meclizine HCl 25 MG TIDPRN PRN 01/16 0615 AC 01/17 PO 1549 Metoclopramide HCl 10 MG Q6P PRN 01/16 0715 AC IV Omeprazole 20 MG DAILY AC 01/17 0901 AC 01/17 PO 1015 Pantoprazole Sodium 40 MG DAILY 01/16 1000 DC 01/16 IV 0957 Assessment/Plan Assessment: 82 yo female with pmh of questionable TIA(2006), vertigo, meniere disease following Dr. Berry, HTN, HLD, rheumatic fever with MR, hypothyrodism s/p throidectomy for cancer(2007), osteoarthritis came from home due to s/p fall with vertigo and coffe ground emesis. CT head was unremarkable for any acute intracranial pathology. However CT of pelvis noted a nondisplaced superior and inferior pubic rami fracture. Impression and plan #fall Most likely secondary to history of vertigo with Mnire's disease. No Acute intracranial pathology noted. #Nondisplaced fracture Located in superior and inferior to be clear mild left-sided. Orthopedic was consulted and recommended continue medical management with pain medication and physical therapy partial protected left-sided non weightbearing. No therapy consult was obtained and the recommendation was patient needed short term rehab. #Coffe ground emesis Is as a transit episode. EGD done today was unremarkable for any acute pathology including ulcers, Charline-Larios tear, Diloufey lesion. Biopsy was obtained and patient is instructed to follow-up with Dr. Lanza about 2 weeks. Disposition Anticipated discharge tomorrow to [facility]. Problem List: 1. Vertigo 2. Fracture Pain Ratin Pain Location: LEFT HIP Pain Goal: Remain pain free Pain Plan: PAIN PATHWAY Tomorrow's Labs & Rationales: NONE-DISCHARGE DEEDEE RDZ 01/17/17 1143: Attending MD Review Statement Attending Statement Attending MD Statement: examined this patient, discuss w/resident/PA/COMPRESSOR STATION CHIEF ENGINEER, agreed w/resident/PA/COMPRESSOR STATION CHIEF ENGINEER, discussed with family, reviewed EMR data (avail), discussed with nursing, discussed with case mgmt, reviewed images Attending Assessment/Plan: ASSESSEMNT AND PLAN 1. Fall and chronic vertigo 2. Hip pain 3. hematemesis 4. h/o Transient ischemic attack on ASA 5. hypertension 6. Hyperlipidemia 7. Hypothyroidism 8. Osteoporosis on alendronate. PLAN -Admit to the inpatient general medical service for further management. -ortho consult no acute intervention, f/u op in 2 weeks -Pain control -Physical therapy f/u -GI consulted, had EGD during this admission. EGD with gastritis, PPI, f/u biopsy 2 weeks o/p. -Her vertigo is chronic, unchanged from baseline. Will continue meclizine as needed. f/u ENT -resume home meds. resume asa. d/c planning to home pt vs STR DVT prophyalxis Full code
[2017-01-17] MEDS ORDERED: OMEPRAZOLE20 M2 PO (14:04)
--- NOTE | 2017-01-17 14:07 | Patient Discharge Instructions ---
Discharge Instructions General Discharge Information You were seen/treated for: MECHANICAL FALL THAT RESULTED IN A NON DISPLACED PELVIC FRACTURE Please follow up with Dr Lanza in 2 weeks Please follow up with your primary care in 1 week Special Instructions: Please follow up with you primary care in 1 week Please follow up with Dr Giles (orthopedics) in 2 weeks Please follow up with Dr Lanza (stomach doctor) in 2 weeks. Acute Coronary Syndrome Inclusion Criteria At DC or during hospital stay patient has or had the following: ACS DIAGNOSIS No Discharge Core Measures Meds if any: Prescribed or Continued at Discharge Meds if any: NOT Prescribed or Continued at Discharge Congestive Heart Failure Inclusion Criteria At DC or during hospital stay patient has or had the following: CHF DIAGNOSIS No Discharge Core Measures Meds if any: Prescribed or Continued at Discharge Meds if any: NOT Prescribed or Continued at Discharge Cerebrovascular accident Inclusion Criteria At DC or during hospital stay patient has or had the following: CVA/TIA Diagnosis No Discharge Core Measures Meds if any: Prescribed or Continued at Discharge Meds if any: NOT Prescribed or Continued at Discharge Venous thromboembolism Inclusion Criteria VTE Diagnosis No VTE Type NONE VTE Confirmed by (Test) NONE Discharge Core Measures - Per Current guidelines, there needs to be overlap - treatment for the first 5 days of Warfarin therapy. - If discharged on Warfarin prior to 5 days of - overlap therapy, the patient will need to be - assessed for post discharge needs including - *Post discharge parental anticoagulation - *Warfarin and/or parental anticoagulation education - *Follow up date to check INR post discharge At least 5 days overlap therapy as Inpatient No Meds if any: Prescribed or Continued at Discharge Note: Overlap Therapy is Warfarin and Anticoagulant Meds if any: NOT Prescribed or Continued at Discharge
[2017-01-17 14:24] VITALS: BP 118/72
--- NOTE | 2017-01-17 15:09 | Discharge Summary ---
Visit Information Visit Dates Admission Date: 01/16/17 Discharge Date: 01/18/17 Hospital Course Course Attending Physician: MARICEL GARRIDO MD Primary Care Physician: MICHELE CLAY,DELVIN Berger Consulting Request: Consulting Specialty: Gastroenterology Consulting Physician: dr lanza [place] [facility] Course: This is a 82-year-old female with past medical history significant for transient ischemic attack in 2006, vertigo, Mnire's disease, hypertension, hyperlipidemia, rheumatic fever, mitral regurgitation, hypothyroidism, thyroid cancer status post thyroidectomy in 2007, osteoporosis, osteoarthritis presented to [facility] emergency department status post fall with vertigo and coffee ground emesis. V/S: 98.8F WA 78 RR 18 BP 178/73 95% on RA, on exam: pt is alert, oriented x 3, mild distress due to pain, PERRLA, EOM intact, dry mucosa, s/p thyroidectomy, no cervical LAD, regular rate, normal S1/S2, systolic murmurs, lung sounds clear, abdomen soft non tender, normal bowel sound, LE no edema, normal pulses, tenderness on Lt. lateral hip+, motor 5/5 moving all extremities, sensation intact, cranial nerves grossly intact. Labs: WBC 11.3, Hb/Hct 13.3/38.9, PT/PTT normal, BEP unremarkable, BUN/Cr 17/0.8 Lt. hip x-ray: Mild hip joint narrowing bilaterally. No evidence for acute injury. Head CT: No evidence for acute intracranial injury. 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 EKG: NSR at 91, LAD, WA 192, QTc 493 prolongation Patient was admitted on GM floor and following problems were adressed 1. Fall and chronic vertigo Patient was advised to carrie montiellizine and f/u with Ent as out patient.Counselled for care full, slow movements and fall precautions. 2. Hip pain Found to have Left nondisplaced superior and inferior rami fractures on hip X- ray, was seen by orthpedics and recommendations are to manage conservatively with 1. Protected partial weight bearing left leg 2. Mobilize with PT 3. Pain control 4. May consider imaging of left clavicle, elbow, or wrist if persistent pain or difficulty with mobilization. Patient may follow up in clinic for reevaluation 2wks after discharge with TANIA SOLER MD 3. hematemesis Was seen by GI and had EGD that showed 1. 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 2. No active bleeding appreciated with recommendations to f/u with Gi as out patient for biopsy report, continue PPI and avoid NSAIDS. 4. h/o Transient ischemic attack on ASA Will resume on discharge 5. hypertension continued home meds 6. Hyperlipidemia continued home meds 7. Hypothyroidism continued home meds 8. Osteoporosis on alendronate. will continue on discharge Complications: none Allergies: Coded Allergies: Penicillins (UNKNOWN 06/09/16) PT. STATES SHE WAS TOLD SHE IS ALLERGIC BUT DOES NOT KNOW THE REACTION. Significant Procedures: Endoscopy Procedure Medical History: unchanged (see meditech consult) Mental Status: alert/oriented Heart/Lung Eval Prior to Sedation: within normal limits Candidate for Sedation? Yes Procedure Date: 01/17/17 Procedure Type: EGD w/biopsy Vacuum Truck Driver: MARICEL GARRIDO MD ASA Classification: II Indications: Hematemesis. Instrument: diagnostic gastroscope Meds Received: MAC Patient's Tolerance: good Complications: none Extent Reached: second part of duodenum Procedure: After getting written informed consent the patient was placed in the left lateral decubitus position with pulse oximetry, cardiac monitoring, and supplemental oxygen given. A bite block was inserted and IV sedation was given until the desired effect was achieved. A high definition upper Olympus endoscope was then inserted into the mouth and advanced to the second portion of the duodenum with little difficulty. Retroflexed views and photodocumentation was obtained. Findings: Esophagus: The esohpageal mucosa was grossly normal in appearance and there was a normal-appearing Z line at 40 cm from the incisors. There were no esophageal strictures, masses, ulcers, erosions, or a Charline-Larios tear appreciated. Stomach: The gastric mucosa was atrophic in appearance and there were patchy erythematous changes in the antrum and the fundus with a few erosions appreciated and the fundus. There were no ulcers or masses appreciated. Distention and peristalsis of the stomach appeared normal. Retroflexed views were normal did not reveal a significant hiatal hernia. Random biopsies were obtained from the antrum with cold biopsy forceps and were sent to pathology for further evaluation. Duodenum: The duodenal bulb, sweep and folds were grossly normal in appearance and there was bile appreciated throughout to the second portion of the duodenum. Impression: 1. 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 2. No active bleeding appreciated. Recommendations: 1. Her diet should be advanced as tolerated. 2. Discontinue IV Protonix and place on 20 mg omeprazole daily for now. 3. She should follow up the pathology results with me as an outpatient. 4. Antiemetics should be administered as needed. 5. She should avoid or minimize her use of NSAIDs. CC: MICHELE CLAY,DELVIN Bailon. Pertinent Lab Results: SERVICE DATE: 01/16/17 EXAM TYPE: RAD - XRY-HIP 2-3 VIEWS, LEFT EXAMINATIONS: PELVIS 1 VIEW AND LEFT HIP 2 VIEWS CLINICAL INFORMATION: Left hip pain after fall. COMPARISON: None. TECHNIQUE: A supine view of the pelvis is provided. AP neutral and frog-leg lateral views of the left hip are provided. FINDINGS: There are no fractures. There is mild hip joint narrowing bilaterally. Both femoral heads are seated within well-formed acetabula. No dysplastic changes are identified. The visualized bowel gas pattern is unremarkable. Within the visualized lower lumbar spine, mild degenerative change is demonstrable. IMPRESSION: Mild hip joint narrowing bilaterally. No evidence for acute injury. Disposition Summary Disposition Principal Diagnosis: upper GI bleed Additional Diagnosis: Acute nondisplaced fractures of the left superior and inferior pubic rami. Discharge Disposition: SNF Discharge Instructions General Discharge Information Code Status: Full Code Patient's Diet: hert healthy diet Patient's Activity: 1. Protected partial weight bearing left leg 2. Mobilize with PT Follow-Up Instructions/Appts: pLEAE FOLLOW UP WITH pcp IN one week of discharge Pleaese f/u with GI Dr. Lanza as out patient for biopsy results. Pleae take meds as prescribed and avoid NSAIDs. follow up in clinic for reevaluation 2wks after discharge.WITH TANIA SOLER MD Medications at Discharge Discharge Medications: Continue taking these medications: Atorvastatin (Atorvastatin Calcium) 10 MG TAB 1 Tablet ORAL DAILY Levothyroxine Sodium (Levothyroxine Sodium) 0.075 MG TAB 1 Tablet ORAL DAILY Alendronate Sodium (Alendronate Sodium) 70 MG TABLET 70 Milligram ORAL EVERY TUESDAY Instructions: TAKE WITH FULL GLASS OF WATER ON AN EMPTY STOMACH WHILE REMAINING IN AN UPRIGHT POSITION Comments: Last Taken: 01/18/17 Time: 0600AM Losartan (Cozaar) 50 MG TAB 1 Tablet ORAL DAILY Ergocalciferol (Vitamin D2) (Vitamin D2) 50,000 UNIT CAPSULE 1 Capsule ORAL MONTHLY Comments: Last Taken: 01/18/17 Time: 0900AM Meclizine HCl (Meclizine HCl) 25 MG TABLET 1 Tablet ORAL THREE TIMES A DAY NEEDED as needed for VERTIGO Qty = 30 Bioflav,Lemon/Vit Bcomp,C (Lipo-Flavonoid Plus Caplet) 200 MG-100 MG TABLET 1 Tablet ORAL DAILY Comments: NOT GIVEN Aspirin (Ecotrin*) 81 MG TABLET.DR 1 Tablet ORAL DAILY Instructions: Reason to Stop at ADM: GI bleeding Comments: Last Taken: 01/18/17 Time: 0900AM Start taking the following new medications: Tramadol HCl (Ultram) 50 MG TABLET 1 Tablet ORAL 2 x Daily as needed as needed for PAIN Qty = 14 No Refills Comments: Last Taken: 01/18/17 Time: 1030AM Omeprazole (Omeprazole) 20 MG CAPSULE.DR 20 Milligram ORAL DAILY BEFORE BREAKFAST Qty = 30 No Refills Comments: Last Taken: Time: 0600AM Copies To: MICHELE CLAY,DELVIN Berger Attending MD Review Statement Documenting Attending: DEEDEE RDZ MD
[2017-01-17 22:11] VITALS: BP 134/74
[2017-01-18 06:17] VITALS: BP 132/60
--- NOTE | 2017-01-18 08:09 | NUR ---
Late entry; Pt c/o pain 07/19. Refusing narcotics. Medicated w/ IV tylenol as ordered.
--- NOTE | 2017-01-18 08:40 | PN- Housestaff ---
RITESH CLAY,RANJITH 01/18/17 0817: Subjective Follow-up For: Vertigo and coffee-ground emesis Subjective: Soft patient at bedside this a.m. She had no acute complaints. Denied any repeated coffee-ground emesis. She did endorse some left leg pain from the fall and the nondisplaced fractures. However she is able to move both extremities. Last night she required an extra dose of IV Tylenol for pain control. Plan is for STR today. Review of Systems Constitutional: Reports: no symptoms. EENTM: Denies: blurred vision. Cardiovascular: Denies: chest pain, palpitations. Gastrointestinal: Denies: abdominal pain, constipation, diarrhea. Genitourinary: Denies: discharge, hematuria. Musculoskeletal: Reports: joint swelling, muscle pain, muscle stiffness. Denies: back pain. Skin: Reports: no symptoms. Objective Last 24 Hrs of Vital Signs/I&O Vital Signs Date Time Temp Pulse Resp B/P Pulse O2 O2 Flow FiO2 Ox Delivery Rate 01/18 0617 98.5 90 20 132/60 94 Room Air 01/17 2211 98.4 92 20 134/74 93 01/17 1424 98.8 91 20 118/72 94 Room Air 01/17 1016 101 154/84 01/17 0956 Room Air Intake & Output 01/18 1600 01/18 0800 01/18 0000 Intake Total 220 120 Output Total 400 400 Balance -180 -280 Intake, IV 100 Intake, Oral 120 120 Output, Urine 400 400 Physical Exam General Appearance: Alert, Oriented X3, Cooperative, No Acute Distress Skin: No Rashes, No Significant Lesion HEENT: Atraumatic, PERRLA, EOMI Neck: Supple Cardiovascular: Regular Rate, Normal S1, Normal S2, No Murmurs Lungs: Normal Air Movement Abdomen: Soft, No Tenderness Neurological: Normal Gait, Normal Speech Extremities: No Cyanosis, No Edema, Normal Pulses, patient has some tenderness to her left thigh. However both pulses palpable both lower extremities warm and well perfused. No signs of edema. Assessment/Plan Assessment: This is an 82-year-old female past medical history of possible TIA 2006, vertigo , Mnire's disease, followed by Dr. Mary roberson, hypertension, hyperlipidemia , rheumatic fever with MR, hypothyroidism status post thyroidectomy , who came in to [facility] due to fall and coffee-ground emesis. Upon initial workup: CT head was unremarkable for any acute intracranial pathology. However CT of pelvis noted a nondisplaced superior and inferior pubic rami fracture. Plan #Nondisplaced fracture Located in superior and inferior to be clear mild left-sided. Orthopedic was consulted and recommended continue medical management with pain medication and physical therapy partial protected left-sided non weightbearing. No therapy consult was obtained and the recommendation was patient needed short term rehab. * Likely discharged STR today #Coffe ground emesis EGD done during admission was unremarkable for any acute pathology including ulcers, Charline-Larios tear, Diloufey lesion. Biopsy was obtained and patient is instructed to follow-up with Dr. Lanza about 2 weeks. * Outpatient follow-up Disposition Anticipated discharge to [facility]. Problem List: 1. Lightheadedness 2. Vertigo Pain Ratin Pain Location: Left-sided Pain Goal: Remain pain free Pain Plan: Current regimen Tomorrow's Labs & Rationales: None Consulting Request: Consulting Specialty: Gastroenterology Consulting Physician: DEEDEE Landon 01/18/17 1126: Attending MD Review Statement Attending Statement Attending MD Statement: examined this patient, discuss w/resident/PA/PACKAGING MACHINE SUPPLIES DISTRIBUTOR, agreed w/resident/PA/PACKAGING MACHINE SUPPLIES DISTRIBUTOR, discussed with family, reviewed EMR data (avail), discussed with nursing, discussed with case mgmt, reviewed images Attending Assessment/Plan: ASSESSEMNT AND PLAN 1. Fall and chronic vertigo 2. Hip pain 3. hematemesis 4. h/o Transient ischemic attack on ASA 5. hypertension 6. Hyperlipidemia 7. Hypothyroidism 8. Osteoporosis on alendronate. PLAN -Admit to the inpatient general medical service for further management. -ortho consult no acute intervention, f/u op in 2 weeks -Pain control, try tramadol today. patient explained risks/benefits therapy of low potency narcotics in this setting, avoid NSAIDS as had acute gastritis ( already on ASA/alendrnate). Patient pain not controlled with high tylenol dose. -Physical therapy f/u -GI consulted, had EGD during this admission. EGD with gastritis, PPI, f/u biopsy 2 weeks o/p. -Her vertigo is chronic, unchanged from baseline. Will continue meclizine as needed. f/u ENT -resume home meds. resume asa. d/c planning to STR DVT prophyalxis Full code
[2017-01-18 10:01] LABS: ABSOLUTE BASOPHIL COUNT 0 /CUMM (0.0-0.2); ABSOLUTE EOSINOPHIL COUNT 0 /CUMM (0.0-0.7); ABSOLUTE GRANULOCYTE CT 4.5 /CUMM (1.4-6.5); ABSOLUTE LYMPH COUNT 0.6 /CUMM (1.2-3.4); ABSOLUTE MONOCYTE COUNT 0.4 /CUMM (0.10-0.60); BASOPHIL % 0.2 % (0.0-2.0); EOSINOPHIL % 0.2 % (0-5); GRANULOCYTE % 81.5 % (42.2-75.2); HEMATOCRIT 36.6 % (37-47); MEAN CORPUSCULAR HGB 27.5 PG (27.0-31.0); MEAN CORPUSCULAR HGB CONC 33.7 G/DL (33.0-37.0); MEAN CORPUSCULAR VOLUME 81.8 FL (81.0-99.0); MEAN PLATELET VOLUME 6.9 FL (7.4-10.4); PLATELET COUNT 183 /CUMM (130-400); RBC DISTRIBUTION WIDTH 13.7 % (11.5-14.5); RED BLOOD CELL CT 4.47 /CUMM (4.20-5.40); WHITE BLOOD CELL COUNT 5.6 /CUMM (4.8-10.8)
[2017-01-18] MEDS ORDERED: ULTRAM50 M1 PO (11:11)
[2017-01-18 12:21] VITALS: BP 132/80
[2017-01-18 15:09] VITALS: BP 134/80
== END 2017-01-18 18:00 | DRG 378 ==
LOC: ENRESERVTM → ENRESERVDT → ERH 00:54 → ENPENDDIS 02:23 → ERHI 02:23 → 2NB 02:23
PROVIDERS: Emergency Medicine; Internal Medicine; Student in an Organized Health Care Education/Training Program; ADMIT Student in an Organized Health Care Education/Training Program
PROC: 0DB68ZX Excision of Stomach, Via Natural or Artificial Opening Endoscopic, Diagnostic (ICD-10-PCS; principal; 2017-01-17)
DX: K92.2 Gastrointestinal hemorrhage, unspecified (principal); S32.512A Fracture of superior rim of left pubis, initial encounter for closed fracture; I34.0 Nonrheumatic mitral (valve) insufficiency; S32.592A Other specified fracture of left pubis, initial encounter for closed fracture; W18.30XA Fall on same level, unspecified, initial encounter; Z91.81 History of falling; Y92.002 Bathroom of unspecified non-institutional (private) residence as the place of occurrence of the external cause; I10 Essential (primary) hypertension; E78.5 Hyperlipidemia, unspecified; E03.9 Hypothyroidism, unspecified; Z85.850 Personal history of malignant neoplasm of thyroid; M81.0 Age-related osteoporosis without current pathological fracture; H81.09 Meniere's disease, unspecified ear; Z79.82 Long term (current) use of aspirin; K29.70 Gastritis, unspecified, without bleeding
CPT/HCPCS: 2NBSP; 73502-LT; 88305; 88312; 93005; 93010; 96361; 96374; 96375; 97110-GO; 97112-GO; 97116-GO; 97161-GP; 97530-GO; J0131; J2405; J2765; J7042

== ENCOUNTER 2017-03-19 08:47 | Emergency (ER) | payer OTHER ==
[~2017-03-19] VITALS: Ht 154.9 cm; Wt 59.0 kg
[~2017-03-19 08:47] MED LIST changes: +ASPIRIN EC81 M1 PO; +LIPO-FLAVONOID1 EACH PO; +OMEPRAZOLE20 M2 PO; +ULTRAM50 M1 PO
[2017-03-19 08:51] VITALS: BP 145/67
[2017-03-19] MEDS ORDERED: NASONEX17 GM NASB ×2 (09:10→09:36)
--- NOTE | 2017-03-19 09:12 | ED INFLUENZA/URI COMPLAINT ---
History of Present Illness General Chief Complaint: Sore Throat, Dental Pain Stated Complaint: SORE THROAT Source: patient Exam Limitations: no limitations Vital Signs & Intake/Output Vital Signs & Intake/Output Vital Signs Date Time Temp Pulse Resp B/P B/P Pulse O2 O2 Flow FiO2 Mean Ox Delivery Rate 03/19 0851 98.0 92 18 145/67 96 Room Air Allergies Coded Allergies: Penicillins (UNKNOWN 06/09/16) PT. STATES SHE WAS TOLD SHE IS ALLERGIC BUT DOES NOT KNOW THE REACTION. Triage Note: PT STATE STHAT SHE STARTED WITH POST NASAL DRIP YESTERDAY AND THIS AM WOKE WITH HER THROAT FEELING SORE AN D LARYNGITIS. PT HAD TONSILS REMOVED CHILD Triage Nurses Notes Reviewed? yes Onset: Gradual Duration: day(s): (1) Timing: recent history Severity: mild Severity Numbers: 5 Prior Episodes/Possible Cause: occassional episodes No Modifying Factors: none HPI: Patient is an 82-year-old female with history of hypertension and Mnire's disease presenting to the emergency department complaining of nasal congestion, postnasal drip and sore throat that's been going on since yesterday. History of seasonal allergy, she has not been taking her daily allergy medications. Denies any fevers or chills no nausea or vomiting. Positive intermittent dry cough. No sputum production. No chest pain palpitations or shortness of breath. She has not taken anything at home to help with her symptoms. Swallowing makes the soreness worse. She does report that she usually takes a daily allergy medication but has not been taking it. (DERRICK DAVIS,BRYCE) Reconcile Medications Alendronate Sodium 70 MG TABLET 70 MG PO QSUN BONES (Reported) TAKE WITH FULL GLASS OF WATER ON AN EMPTY STOMACH WHILE REMAINING IN AN UPRIGHT POSITION Aspirin (Ecotrin*) 81 MG TABLET.DR 1 TAB PO DAILY TIA (Reported) Reason to Stop at ADM: GI bleeding Atorvastatin Calcium 10 MG TABLET 1 TAB PO DAILY CHOLESTEROL (Reported) Bioflav,Lemon/Vit Bcomp,C (Lipo-Flavonoid Plus Caplet) 200 MG-100 MG TABLET 1 TAB PO DAILY VITAMIN (Reported) Ergocalciferol (Vitamin D2) (Vitamin D2) 50,000 UNIT CAPSULE 1 CAP PO MONTHLY supplement (Reported) Levothyroxine Sodium (Levoxyl) 75 MCG TABLET 1 TAB PO DAILY AC THYROID ( Reported) Losartan Potassium (Cozaar) 50 MG TABLET 1 TAB PO DAILY HTN (Reported) Meclizine HCl 25 MG TABLET 1 TAB PO TIDPRN PRN VERTIGO Mometasone Furoate (Nasonex) 50 MCG SPRAY.PUMP 2 SPRAY NASB DAILY PRN congestion Mometasone Furoate (Nasonex) 50 MCG SPRAY.PUMP 2 SPRAY NASB DAILY PRN congestion Omeprazole 20 MG CAPSULE.DR 20 MG PO DAILY AC ACID REFLUX Triamterene/Hydrochlorothiazid (Triamterene-Hctz 37.5-25 MG Cp) 37.5 MG-25 MG CAPSULE 1 CAP PO DAILY WATER PILL (Reported) (ABBE CLAY,DONN Cardenas) Past History Travel History Traveled to [place] past 21 day No Medical History Any Pertinent Medical History? 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 No (BRYCE CHIN) Review of Systems Review of Systems Constitutional: Reports: no symptoms. Comments Review of systems: See HPI, All other systems negative. Constitutional, no chills fever or weight loss HEENT: No visual changes Cardiovascular: No chest pain ,palpitation , orthopnea or ankle swelling Skin, no jaundice no rashes Respiratory: No dyspnea cough sputum or hemoptysis GI: No nausea no vomiting Muscle skeletal: no back pain, no neck pain, Neurologic: No numbness no confusion, no headaches Psych: No stress anxiety or depression,. Heme/endocrine: No bruising no bleeding no polyuria or polydipsia Immunology: No splenectomy or history of AIDS (BRYCE CHIN) Physical Exam Physical Exam General Appearance: well developed/nourished, no apparent distress, alert, awake , comfortable Ears, Nose, Throat: nasal congestion, nasal drainage, postnasal drip, mild pharyngeal erythema, no exudates Comments: Well-developed well-nourished person in no acute distress HEENT: Normal EENT exam, extraocular motion intact, no nystagmus. Pupils equally round and reactive to light and accommodation. Nose is atraumatic. External auditory canal and Tympanic membranes clear. Pharynx is mildly erythematous, no exudate, clear secretions without difficulty. Uvula midline. Postnasal drip present.. No swelling or edema. Neck: Supple, no lymphadenopathy, normal range of motion without pain or tenderness Back: Nontender Cardiovascular: Regular rate and rhythms no murmurs rubs or gallops, normal JVP Respiratory: Chest nontender. No respiratory distress.breath sounds clear to auscultation bilaterally Extremity: No edema Neuro: Alert oriented x3 Skin: No appreciable rash on exposed skin, skin is warm and dry. Psych: Mood and affect is normal, memory and judgment is normal. Core Measures Severe Sepsis Present: No Septic Shock Present: No (BRYCE CHIN) Progress Differential Diagnosis: influenza, pneumonia, pharyngitis, sinusitis, postnasal drip, laryngitis, strep throat Plan of Care: pcp follow up symptomatic tx Initial ED EKG: none Comments: Symptoms started yesterday, patient afebrile. No petechia noted posterior pharynx. Likely viral or allergic in nature. Patient will be treated symptomatically. Increase fluids. PCP follow-up as needed. d/w dr guzman and he agrees with plan. (BRYCE CHIN) Departure Departure Time of Disposition: 907 Disposition: HOME OR SELF CARE Condition: Stable Clinical Impression Primary Impression: Post-nasal drip Secondary Impressions: Pharyngitis Qualifiers: Pharyngitis/tonsillitis etiology: unspecified etiology Qualified Code: J02.9 - Acute pharyngitis, unspecified Referrals: MICHELE CLAY,DELVIN Berger (PCP/Family) Additional Instructions: Follow-up with your primary care physician collimating appointment. Increase fluids. Use nasonex as directed to help with congestion. Return for worsening symptoms or concerns. Take Tylenol for any soreness in her throat. You can also consider taking a daily Zyrtec to help with your allergy symptoms. Departure Forms: Customer Survey General Discharge Information (BRYCE CHIN) Departure Prescriptions: Current Visit Scripts Mometasone Furoate (Nasonex) 2 SPRAY NASB DAILY PRN congestion #1 INHAL Mometasone Furoate (Nasonex) 2 SPRAY NASB DAILY PRN congestion #1 INHAL PA/TREE EXPERT Co-Sign Statement Statement: ED Attending supervision documentation- [] I saw and evaluated the patient. I have also reviewed all the pertinent lab results and diagnostic results. I agree with the findings and the plan of care as documented in the PA's/TREE EXPERT's documentation. [X] I have reviewed the ED Record and agree with the PA's/TREE EXPERT's documentation. [] Additions or exceptions (if any) to the PAs/TREE EXPERT's note and plan are summarized below: [] (ABBE CLAY,DONN Cardenas)
[2017-03-19] MEDS ORDERED: TRIAMTERENE-HC1 EAC3 PO (09:17)
== END 2017-03-19 09:23 ==
LOC: ERH 08:47
DX: J02.9 Acute pharyngitis, unspecified (principal); R09.82 Postnasal drip

== ENCOUNTER 2017-10-01 16:39 | Inpatient (IN) | payer OTHER ==
[~2017-10-01] VITALS: Ht 157.5 cm; Wt 59.9 kg
[~2017-10-01 16:39] MED LIST changes: +MOBIC7.5 M1 PO; +NASONEX17 GM NASB; +TRIAMTERENE-HC1 EAC3 PO; +VALIUM2 M1 PO
--- NOTE | 2017-10-01 17:25 | ED AMS/SEIZURE/WEAK/DIZZY ---
See Addendum History of Present Illness General Chief Complaint: General Adult Stated Complaint: WEAKNESS, ABD PAIN, DIZZY, DE [place] Source: patient, family, old records Exam Limitations: no limitations Vital Signs & Intake/Output Vital Signs & Intake/Output Vital Signs Date Time Temp Pulse Resp B/P B/P Pulse O2 O2 Flow FiO2 Mean Ox Delivery Rate 10/017 90 20 142/53 96 Room Air 10/01 2012 97.6 94 18 131/58 98 Room Air 10/01 1850 97.1 94 18 113/64 97 Room Air 10/01 1737 87 18 102/53 96 Room Air 10/01 1728 Room Air 10/01 1653 96.4 116 20 108/66 97 Room Air Allergies Coded Allergies: Penicillins (UNKNOWN 06/09/16) PT. STATES SHE WAS TOLD SHE IS ALLERGIC BUT DOES NOT KNOW THE REACTION. Triage Note: PT TO WITH MULTIPLE COMPLAINTS. C/O FEELING DIZZY, ABD PAIN, "STOMACH SICK" H/A, "EYES HURT". "I JUST DON'T FEEL GOOD". PT SEEN IN ED ON TUESDAY FOR SAME. STATES THEY GAVE ME A PILL AND SENT ME HOME. Triage Nurses Notes Reviewed? yes Onset: Abrupt Duration: week(s): (2), intermittent Timing: recent history Injury Environment: home Severity: mild, moderate Severity Numbers: 5 No Modifying Factors: none Associated Symptoms: DENIES HPI: 82-year-old female history of TIA, menieres, hypertension presents to the ER for evaluation. She states over the past 2 weeks she's had intermittent episodes of room spinning dizziness and a pressure sensation in her ears and eyes. No vision changes loss of vision blurry vision. She denies headache. She states her dizziness makes her nauseous. She was seen in the ER 2 days ago she was given Valium here in the ER with improvement. She states that she went to the walk-in a few days ago started on antibiotics for an upper respiratory infection. No fever no chills or recent fall or head trauma. She denies any arm or leg weakness no slurred speech no change in mental status per family. When she had a TIA in the past the patient states that she lost the ability to speak and states that this does not feel similar. No chest pain palpitations (Serjio DAVIS,Bijan) Reconcile Medications Alendronate Sodium 70 MG TABLET 70 MG PO QSUN BONES (Reported) TAKE WITH FULL GLASS OF WATER ON AN EMPTY STOMACH WHILE REMAINING IN AN UPRIGHT POSITION Aspirin (Ecotrin*) 81 MG TABLET.DR 1 TAB PO DAILY TIA (Reported) Reason to Stop at ADM: GI bleeding Atorvastatin Calcium 10 MG TABLET 1 TAB PO DAILY CHOLESTEROL (Reported) Bioflav,Lemon/Vit Bcomp,C (Lipo-Flavonoid Plus Caplet) 200 MG-100 MG TABLET 1 TAB PO DAILY VITAMIN (Reported) Diazepam (Valium) 2 MG TABLET 1 TAB PO BID PRN vertigo Ergocalciferol (Vitamin D2) (Vitamin D2) 50,000 UNIT CAPSULE 1 CAP PO MONTHLY supplement (Reported) Levothyroxine Sodium (Levoxyl) 75 MCG TABLET 1 TAB PO DAILY AC THYROID ( Reported) Losartan Potassium (Cozaar) 50 MG TABLET 1 TAB PO DAILY HTN (Reported) Meclizine HCl 25 MG TABLET 1 TAB PO TIDPRN PRN VERTIGO (Reported) Ondansetron (Zofran Odt) 4 MG TAB.RAPDIS 1 TAB SL TID PRN NAUSEA (Leighann CLAY,Danny Cardenas) Past History Travel History Traveled to [place] past 21 day No Medical History Any Pertinent Medical History? see below for history Neurological: vertigo, TIA 2006 ?MENIERES EENT: allergies, cataracts, epistaxis, sinusitis, L EYE DETACHED RETINA Cardiovascular: hypertension, hyperlipidemia, mitral regurgitation Respiratory: NONE Gastrointestinal: ? 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 No (Serjio DAVIS,Bijan) Review of Systems Review of Systems Constitutional: Reports: see HPI. Comments Review of systems: See HPI, All other systems negative. Constitutional, no chills no fever, HEENT: no sore throat no congestion, Cardiovascular: No chest pain Skin: no rashes, no change in skin Respiratory: No dyspnea no cough GI: No nausea no vomiting, no diarrhea, Muscle skeletal: No joint pain, Neurologic: , no headache Psych: No stress Heme/endocrine: No bruising Immunology: No lymphadenopathy (Bijan Olson) Physical Exam Physical Exam General Appearance: well developed/nourished, no apparent distress, alert, awake , comfortable Comments: Well-developed well-nourished person in no acute distress HEENT: Normal EENT exam; PERRL, EOMI, no nystagmus. HEAD is atraumatic. moist mucous membranes. Neck: Supple, normal range of motion Back: Full range of motion Cardiovascular: Regular rate and rhythms no murmurs rubs Respiratory: No respiratory distress. Patient speaking in full complete sentences. Breath sounds clear to auscultation bilaterally: NO W/R/R Abdomen: Soft, nontender nondistended, no appreciable organomegaly. Normal bowel sounds. No rebound/guarding, Extremity: No edema, full range of motion of extremities, normal and equal pulses bilaterally, 5 out of 5 strength noted to bilateral upper and lower extremities Neuro: Alert oriented x3, motor sensory normal, cranial nerves II through XII grossly intact. There were no obvious focal neurologic abnormalities. Skin: No appreciable rash on exposed skin, skin is warm and dry. Psych: Mood and affect is normal, memory and judgment is normal. Core Measures ACS in differential dx? No CVA/TIA Diagnosis No Sepsis Present: No Sepsis Focused Exam Completed? No (Bijan Olson) Progress Differential Diagnosis: arrythmia, anemia, benign positional vertigo, CVA/stroke , dehydration, electrolyte imbalance, GI bleed, intracranial Hem., intracranial mass/tumor, subarachnoid Hem. Plan of Care: Orders Procedure Date/time Status EKG 10/01 173 Active URINALYSIS 10/01 164 Complete TROPONIN LEVEL 10/01 164 Complete MAGNESIUM 10/01 164 Complete COMPREHENSIVE METABOLIC PANEL 10/01 164 Complete CBC WITHOUT DIFFERENTIAL 10/01 164 Complete Current Medications Sig/Arun Start time Last Medication Dose Stop Time Status Admin Sodium Chloride 1,000 ML BOLUS ONE 10/01 2145 UNVr (Normal Saline 0.9%) 10/01 2244 Diazepam 2.5 MG ONCE ONE 10/01 2030 CAN (Valium) 10/01 2031 Laboratory Tests 10/01/17 1900: Urine Color YEL, Urine Clarity CLEAR, Urine pH 5.5, Ur Specific [place] 1.025, Urine Protein NEG, Urine Ketones TRACE H, Urine Nitrite NEG, Urine Bilirubin NEG, Urine Urobilinogen 0.2, Ur Leukocyte Esterase NEG, Ur Microscopic EXAM NOT REQUIRED, Urine Hemoglobin NEG, Urine Glucose NEG 10/01/17 1740: Anion Gap 10, Estimated GFR > 60, BUN/Creatinine Ratio 41.1 H, Glucose 125 H, Calcium 9.5, Magnesium 1.7, Total Bilirubin 0.3, AST 18, ALT 27, Alkaline Phosphatase 37, Troponin I < 0.01, Total Protein 6.1 L, Albumin 3.4 L, Globulin 2.7, Albumin/Globulin Ratio 1.3, CBC w Diff NO MAN DIFF REQ, RBC 4.07 L, MCV 83.2, MCH 28.0, RDW 13.0, MPV 7.2 L, Gran % 84.6 H, Lymphocytes % 8.1 L, Monocytes % 5.4, Eosinophils % 1.7, Basophils % 0.2, Absolute Granulocytes 9.5 H, Absolute Lymphocytes 0.9 L, Absolute Monocytes 0.6, Absolute Eosinophils 0.2, Absolute Basophils 0, PUBS MCHC 33.6 Labs ordered old records reviewed patient declining A for symptoms at this time Patient ambulatory to the bathroom in no apparent distress case discussed with Dr. Lawton agrees with plan I discussed with the patient at length all of their results. I had an extensive conversation regarding need for close follow up with their primary care physician/ent this week as well as return precautions. I answered all of their questions, they feel comfortable with the plan and follow-up care. I discussed with the patient/family the medications that they will receive. I gave them signs and symptoms that could indicate an adverse reaction. I have advised them to limit their activities until they can see how they respond to the medication. Diagnostic Imaging: Viewed by Me: CT Scan. Discussed w/RAD: CT Scan. Radiology Impression: PATIENT: NELSON NOVOA PRESENT AGE: 82 PATIENT ACCOUNT NO: [id number] : 37 LOCATION: [facility] ORDERING PHYSICIAN: Bijan DAVIS SERVICE DATE: 10/01/17 EXAM TYPE: CAT - CT HEAD WO IV CONTRAST EXAMINATION: CT HEAD WITHOUT CONTRAST CLINICAL INFORMATION: Dizziness with nausea and vomiting. Concern for intracranial hemorrhage. COMPARISON: CT head 05/06/2017. TECHNIQUE: Contiguous axial imaging was performed from the skull base to vertex without intravenous administration of contrast. DLP: 602.15 mGy-cm FINDINGS: Stable encephalomalacia within the right temporal lobe consistent with sequela prior right MCA territory infarction. Generalized parenchymal atrophy of the brain with proportion dilation of the ventricles, sulci, and basilar cisterns. Stable subtle foci of white matter hypointensity in the bilateral periventricular and subcortical white matter are similar to prior examination and most consistent with sequela of chronic microvascular ischemia. No intracranial hemorrhage, hydrocephalus, mass effect or acute territorial infarction. No extra-axial fluid collections are identified. There are intracranial atherosclerotic calcifications. The osseous structures and soft tissues are normal. The mastoid air cells and visualized portions of the paranasal sinuses are well aerated. The telida ocular lenses are surgically absent. The globes and retrobulbar soft tissues are otherwise within normal limits. IMPRESSION: No intracranial hemorrhage or acute intracranial pathology. 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 Generalized parenchymal atrophy of the brain with intracranial atherosclerotic disease and white matter changes most consistent with sequela of chronic microvascular ischemia. DICTATED BY: Ab Merida MD DATE/TIME DICTATED:10/01/171923 BOBBIN SORTER:MEGHAN DATE/TIME TRANSCRIBED:10/01/171923 CONFIDENTIAL, DO NOT COPY WITHOUT APPROPRIATE AUTHORIZATION. <Electronically signed in Other Vendor System> SIGNED BY: bA Merida MD 10/01/171931 Initial ED EKG: normal intervals, normal p-waves, normal QRS complex, normal sinus rhythm (Bijan Olson) Departure Departure Time of Disposition: 1947 Condition: Stable Clinical Impression Primary Impression: Vertigo Referrals: Marie CLAY,Faizan Berger (PCP/Family) Kristi CLAY,Kishor Additional Instructions: valium as directed. use caution as this will make you drowsy. follow up with ent dr werner next week. return with any concerns Departure Forms: Customer Survey General Discharge Information (Bijan Olson) Departure Disposition: STILL A PATIENT Prescriptions: Current Visit Scripts Diazepam (Valium) 1 TAB PO BID PRN vertigo #10 TAB Ondansetron (Zofran Odt) 1 TAB SL TID PRN NAUSEA #10 TAB Admission Note Spoke With: Xavier Vasquez MD Documentation of Exam: Documentation of any treatments & extenuating circumstances including Concerns Regarding Discharge (functional status, medication knowledge or non-compliance, living conditions, etc.) that warrant an admission rather than observation: [ INTRACTABLE VERTIGO, NEURO CONSULT, MRI/MRA, VALIUM, ANTIEMETICS, PT CONSULT] PA/INSPECTOR PAWNSHOP DETAIL Co-Sign Statement Statement: ED Attending supervision documentation- [X] I saw and evaluated the patient. I have also reviewed all the pertinent lab results and diagnostic results. I agree with the findings and the plan of care as documented in the PA's/INSPECTOR PAWNSHOP DETAIL's documentation. [X] I have reviewed the ED Record and agree with the PA's/INSPECTOR PAWNSHOP DETAIL's documentation. [] Additions or exceptions (if any) to the PAs/INSPECTOR PAWNSHOP DETAIL's note and plan are summarized below: [SEE ABOVE] (Leighann CLAY,Danny Cardenas)
[2017-10-01 17:57] LABS: ABSOLUTE BASOPHIL COUNT 0 /CUMM (0.0-0.2); ABSOLUTE EOSINOPHIL COUNT 0.2 /CUMM (0.0-0.7); ABSOLUTE GRANULOCYTE CT 9.5 /CUMM (1.4-6.5); ABSOLUTE LYMPH COUNT 0.9 /CUMM (1.2-3.4); ABSOLUTE MONOCYTE COUNT 0.6 /CUMM (0.10-0.60); BASOPHIL % 0.2 % (0.0-2.0); EOSINOPHIL % 1.7 % (0-5); MEAN CORPUSCULAR HGB CONC 33.6 G/DL (33.0-37.0); MEAN CORPUSCULAR VOLUME 83.2 FL (81.0-99.0); MEAN PLATELET VOLUME 7.2 FL (7.4-10.4); PLATELET COUNT 293 /CUMM (130-400); RED BLOOD CELL CT 4.07 /CUMM (4.20-5.40); WHITE BLOOD CELL COUNT 11.2 /CUMM (4.8-10.8)
[2017-10-01 18:00] LABS: HEMATOCRIT 33.9 % (37-47)
[2017-10-01 18:13] LABS: GRANULOCYTE % 84.6 % (42.2-75.2)
--- NOTE | 2017-10-01 19:32 | CT SCAN REPORT ---
EXAMINATION: CT HEAD WITHOUT CONTRAST CLINICAL INFORMATION: Dizziness with nausea and vomiting. Concern for intracranial hemorrhage. COMPARISON: CT head 05/06/2017. TECHNIQUE: Contiguous axial imaging was performed from the skull base to vertex without intravenous administration of contrast. DLP: 602.15 mGy-cm FINDINGS: Stable encephalomalacia within the right temporal lobe consistent with sequela prior right MCA territory infarction. Generalized parenchymal atrophy of the brain with proportion dilation of the ventricles, sulci, and basilar cisterns. Stable subtle foci of white matter hypointensity in the bilateral periventricular and subcortical white matter are similar to prior examination and most consistent with sequela of chronic microvascular ischemia. No intracranial hemorrhage, hydrocephalus, mass effect or acute territorial infarction. No extra-axial fluid collections are identified. There are intracranial atherosclerotic calcifications. The osseous structures and soft tissues are normal. The mastoid air cells and visualized portions of the paranasal sinuses are well aerated. The tejon ocular lenses are surgically absent. The globes and retrobulbar soft tissues are otherwise within normal limits. IMPRESSION: No intracranial hemorrhage or acute intracranial pathology. 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 Generalized parenchymal atrophy of the brain with intracranial atherosclerotic disease and white matter changes most consistent with sequela of chronic microvascular ischemia.
[2017-10-01] MEDS ORDERED: MECLIZINE HCL25 MG PO (19:39)
[2017-10-01] MEDS ORDERED: VALIUM2 M1 PO (19:49)
[2017-10-01] MEDS ORDERED: ZOFRAN ODT4 M1 SL (20:12)
--- NOTE | 2017-10-01 21:45 | History & Physical ---
[facility]: General Information and HPI MD Statement: I have seen and personally examined NELSON SAUNDERS and documented this H&P. The patient is a 82 year old F who presented with a patient stated chief complaint of [dizziness]. Source of Information: patient, family Exam Limitations: no limitations History of Present Illness: 82-year-old female with past medical history of TIA [2006], Mnire's disease, hypertension, hyperlipidemia, history of rheumatic fever-mitral regurgitation, GI bleed [January 2017], hypothyroidism, osteoarthritis came to [place] [facility] with complaints of nausea, dizziness and eye pain. Patient is having similar symptoms for many years and taking meclizine for her vertigo. Patient started having severe similar symptoms for the past 2 weeks -complains of ear fullness, both the room and self spinning, increased sweating, buzzing or year, right ear hard of hearing, lightheadedness. Patient had a upper respiratory infection a week ago and went to walk-in clinic and was given Augmentin and Flonase. Patient took 5 days course of antibiotics. She came to [place] ER day before yesterday with similar complaints and was given Valium and felt better. Between that episode and today's admission patient had 4-5 similar episodes. According to the patient all these episodes start on with no aggravating factors and remains for 1-4 hours with no relieving factor. Patient was recently seen by her ENT doctor who suggested to increase the meclizine as needed. Patient had one episode of vomiting which was dark brown in color. Loss of consciousness, diplopia, weakness, migraine, history of herpes zoster, facial paralysis, dysarthria, dysphagia, double vision, numbness, gait disturbances, eye floaters, blackout, weakness. No history of any chest pain, chest pressure, abdominal pain, dysuria, hematuria, diarrhea, constipation, dark stool. 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 Allergies/Medications Allergies: Coded Allergies: Penicillins (UNKNOWN 06/09/16) PT. STATES SHE WAS TOLD SHE IS ALLERGIC BUT DOES NOT KNOW THE REACTION. Home Med list Alendronate Sodium 70 MG TABLET 70 MG PO QSUN BONES (Reported) TAKE WITH FULL GLASS OF WATER ON AN EMPTY STOMACH WHILE REMAINING IN AN UPRIGHT POSITION Aspirin (Ecotrin*) 81 MG TABLET.DR 1 TAB PO DAILY TIA (Reported) Reason to Stop at ADM: GI bleeding Atorvastatin Calcium 10 MG TABLET 1 TAB PO DAILY CHOLESTEROL (Reported) Bioflav,Lemon/Vit Bcomp,C (Lipo-Flavonoid Plus Caplet) 200 MG-100 MG TABLET 1 TAB PO DAILY VITAMIN (Reported) Diazepam (Valium) 2 MG TABLET 1 TAB PO BID PRN vertigo Ergocalciferol (Vitamin D2) (Vitamin D2) 50,000 UNIT CAPSULE 1 CAP PO MONTHLY supplement (Reported) Levothyroxine Sodium (Levoxyl) 75 MCG TABLET 1 TAB PO DAILY AC THYROID ( Reported) Losartan Potassium (Cozaar) 50 MG TABLET 1 TAB PO DAILY HTN (Reported) Meclizine HCl 25 MG TABLET 1 TAB PO TIDPRN PRN VERTIGO (Reported) Ondansetron (Zofran Odt) 4 MG TAB.RAPDIS 1 TAB SL TID PRN NAUSEA Compliance With Home Meds: GOOD Past History Travel History Traveled to [place] past 21 day No Medical History Neurological: vertigo, TIA 2006 ?MENIERES EENT: allergies, cataracts, epistaxis, sinusitis, L EYE DETACHED RETINA Cardiovascular: hypertension, hyperlipidemia, mitral regurgitation Respiratory: NONE Gastrointestinal: ? 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 Home Who Do You Live With? spouse Services at Home: None Primary Language: Yi Smoking Status: Never Smoked ETOH Use: denies use Illicit Drug Use: denies illicit drug use Functional Ability ADLs Independent: dressing, eating, toileting, bathing. Ambulation: independent IADLs Independent: shopping, housework, finances, food prep, telephone, transportation , medication admin. Review of Systems Review of Systems Constitutional: Reports: weakness. EENTM: Denies: double vision, visual changes, eye pain, eye drainage, eye tearing, icterus, ear discharge, ear pain, ear redness, hearing changes, nasal congestion , epistaxis, nasal pain, throat pain. Cardiovascular: Reports: no symptoms. Respiratory: Reports: no symptoms. GI: Reports: no symptoms. Genitourinary: Reports: no symptoms. Musculoskeletal: Reports: no symptoms. Skin: Reports: no symptoms. Neurological/Psychological: Reports: no symptoms (dizziness). Exam & Diagnostic Data Last 24 Hrs of Vital Signs/I&O Vital Signs Date Time Temp Pulse Resp B/P B/P Pulse O2 O2 Flow FiO2 Mean Ox Delivery Rate 10/02 0000 98.2 102 20 116/66 97 Room Air 10/01 2301 97.6 98 20 122/58 98 Room Air 10/01 2155 97.1 98 20 112/56 96 Room Air 10/01 2037 90 20 142/53 96 Room Air 10/01 2012 97.6 94 18 131/58 98 Room Air 10/01 1850 97.1 94 18 113/64 97 Room Air 10/01 1737 87 18 102/53 96 Room Air 10/01 1728 Room Air 10/01 1653 96.4 116 20 108/66 97 Room Air Intake & Output 10/02 0800 10/02 0000 10/01 1600 Intake Total 1000 Output Total Balance 1000 Intake, IV 1000 Patient 132 lb Weight Weight Reported by Patient Measurement Method Physical Exam General Appearance Alert, Oriented X3, Cooperative, No Acute Distress Skin No Rashes, No Breakdown HEENT PERRLA Neck Supple, No JVD Cardiovascular Normal S1, Normal S2, systolic murmur Lungs Clear to Auscultation Abdomen Soft Neurological Normal Speech, Strength at 5/5 X4 Ext, Normal Tone, Sensation Intact, Cranial Nerves 3-12 NL, neg cerebellar signs. orthostats coudnt be elicited Extremities No Cyanosis, No Edema Vascular Normal Pulses Last 24 Hrs of Labs/Manuelito: Laboratory Tests 10/01/17 1900: Urine Color YEL, Urine Clarity CLEAR, Urine pH 5.5, Ur Specific [place] 1.025, Urine Protein NEG, Urine Ketones TRACE H, Urine Nitrite NEG, Urine Bilirubin NEG, Urine Urobilinogen 0.2, Ur Leukocyte Esterase NEG, Ur Microscopic EXAM NOT REQUIRED, Urine Hemoglobin NEG, Urine Glucose NEG 10/01/17 1740: Anion Gap 10, Estimated GFR > 60, BUN/Creatinine Ratio 41.1 H, Glucose 125 H, Calcium 9.5, Magnesium 1.7, Total Bilirubin 0.3, AST 18, ALT 27, Alkaline Phosphatase 37, Troponin I < 0.01, Total Protein 6.1 L, Albumin 3.4 L, Globulin 2.7, Albumin/Globulin Ratio 1.3, CBC w Diff NO MAN DIFF REQ, RBC 4.07 L, MCV 83.2, MCH 28.0, RDW 13.0, MPV 7.2 L, Gran % 84.6 H, Lymphocytes % 8.1 L, Monocytes % 5.4, Eosinophils % 1.7, Basophils % 0.2, Absolute Granulocytes 9.5 H, Absolute Lymphocytes 0.9 L, Absolute Monocytes 0.6, Absolute Eosinophils 0.2, Absolute Basophils 0, PUBS MCHC 33.6 Diagnostic Data EKG Results Normal sinus rhythm-tachycardia, normal axis, QTC 455, Q waves Other Results Head CT No intracranial hemorrhage or acute intracranial pathology. 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 Generalized parenchymal atrophy of the brain with intracranial atherosclerotic disease and white matter changes most consistent with sequela of chronic microvascular ischemia. Assessment/Plan Assessment: 82-year-old female with past medical history of TIA [2006], Mnire's disease, hypertension, hyperlipidemia, history of rheumatic fever-mitral regurgitation, GI bleed [January 2017], hypothyroidism, osteoarthritis came to [place] ER with complaints of nausea, dizziness and eye pain admitted in [facility] for further evaluation and management. Problem list 1. Mnire's disease 2. Vestibular neuronitis 3. Rule out stroke 4. Questionable GI bleed 5. Hypertension 6. Hyperlipidemia 7. Anemia 8. Mitral regurgitation secondary to rheumatic fever. 9. Hypothyroidism secondary to thyroidectomy. Mnire's disease/vestibular neuronitis/stroke * Given the patient's previous multiple history of dizziness and diagnosis of M nire's disease this could be recurrent of Mnire's disease. * Of note patient had a recent upper respiratory tract infection, possibility of vestibular neuronitis is not ruled out, Though patient doesn't have any nystagmus or any neurological symptoms. we will continue meclizine, Valium and Zofran for nausea and vomiting and give a stat dose of prednisone 40 mg. We will get a ENT consult in a.m. Vestibular rehabilitation. * Given the patient previous history of stroke in 2006, hypertension, hyperlipidemia this dizziness with imbalance can be also TIA/stroke. CT head was negative. We will take MRI to rule out any ischemic stroke. Physical therapy and occupational therapy to help with her balance and gait. Upper GI bleed/anemia * Patient is an upper GI bleed in January 2017 and this admission had a dark brown color vomiting. Patient is hemodynamically stable now and We will follow-up with her CBCs and do a anemia workup. Hypertension/hyperlipidemia/hypothyroidism * We will continue her losartan 50 mg, levothyroxine, atorvastatin, Alendronate. Code-full code DVT prophylaxis-Alps Diet-heart healthy diet. As Ranked By This Provider Problem List: 1. GI bleeding 2. Vertigo 3. Dizziness 4. Meniere disease Core Measures/Misc (06/26) Acute Coronary Syndrome ACS Diagnosis: No Congestive Heart Failure Congestive Heart Failure Diagnosis No Cerebrovascular Accident CVA/TIA Diagnosis: No VTE (View Protocol) VTE Risk Factors Age>40 No Mechanical VTE Prophylaxis d/t Other No VTE Pharm Prophylaxis d/t Other Sepsis (View protocol) Sepsis Present: No Asuncion Myers 10/02/17 0335: Resident Review Statement Resident Statement: examined this patient, discussed with internist, agreed with internist, discussed with family, amended to note Other Findings: Ms Saunders is a 82-year-old woman w/ a PMHx of TIA ? CVA 2006 (no residual neurological deficits), Mnire's disease, hypertension, retinal detachment left eye, previous GI bleed, thyroid cancer(? papillary Ca s/p thyroid surgery), Rheumatoid fever( w/ MR ), hypothyroidism was brought to the ED with a chief concern of recurrent episodes of abdominal discomfort, nausea, headache, dizziness in the last few days. She was seen in [place] ER 3 days ago, with similar complaints and was discharged home on diazepam and meclizine. She has a history of Mnire's disease, for which she follows up with the ENT. She is currently on LPF, but not on any diuretic at this time. She was admitted to [facility] 5 months ago with similar complaints, and reported to have episodes of nausea, dizziness (room spinning around) occasionally. Reported to have upper respiratory symptoms, and was treated with antibiotic 1 week ago with partial resolution of symptoms. Episodes, are usually acute, no aggravating or relieving factors, last for approximately 4 hours. She continues to have hearing difficulty on the right side, with associated tinnitus and fullness. Last episode, was this a.m. which prompted her to seek medical attention. She is currently asymptomatic. No chest pain, palpitations. She did not have any lightheadedness, syncope, visual changes. No neurological symptoms. 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 Nonsmoker, nonalcoholic. Also reported to have one episode of vomiting, while she was in the ED, which was dark in color. At the time of admission, vitals-96.4, pulse 116 (improved to 90), respiration 20, blood pressure 108/66, 97% on room air. On examination- General Exam: AAOx3 , No acute distress, Skin: No rashes, no breakdown, HEENT: PERRLA, EOMI ; Neck: Supple, No JVD No cervical lymphadenopathy CVS: Reg Rate, Normal S1,S2, midsystolic murmur on the LUSB and axialla; Resp: Normal air entry, no ronchi/rales ;Abdomen: Soft, No tenderness, Normal Bowel Sounds ; Neuro: Normal Speech, Strength 5/5 b/l x 4 extremities, Sensation intact, CN III-XII NL, Reflexes 2+ ; Extremities: No cyanosis, pedal edema. No nystagmus, no ataxia, finger-nose test negative, vestibular ocular reflex could not be done. Gait could not be checked, as she was unwilling to walk. Romberg sign negative. Pertinent lab findings-WBC 11.2, hemoglobin 11.4, (13.7 on 09/29/2017), platelets 293, sodium 143, potassium 4.3, BUN 37 (increased), creatinine 0.7. CT head-Stable encephalomalacia within the right temporal lobe compatible with the patient is here sequela of remote right MCA territory infarction. She has a history of Mnire's disease, recurrent symptoms of nausea, vomiting, dizziness likely from Mnire's disease, or vestibular neuronitis considering recent upper respiratory infection. Other etiologies such as positional vertigo , thyroid dysfunction, transient ischemic attack/posterior inferior cerebellar stroke, are in differential. Also anemia could be kept in mind and should be worked up. As per the management of Mnire's disease, she was treated with diuretics, and has not been continued. Surgical management should be undertaken , but defer the decision to the ENT surgeon. Plan: #1 dizziness, nausea, vomiting-likely due to Mnire's disease, or was to be low neuronitis, TIA/CVA, cerebellar stroke. At this time, treat with meclizine 25 mg 3 times a day, scheduled, which could be changed to when necessary if she symptomatically improves. Treat with tubular neuronitis, with prednisone, and defer the decision to continue the treatment as per ENT. Anahyfran for nausea. #2 blood in vomiting-she has a history of previous GI bleed, and last endoscopy and (2012) result revealed atrophic gastritis and no ulcers were found. No history of NSAID use in the recent past except aspirin daily. Hold off on aspirin at this time. Monitor H&H, and if she has any further drop in hemoglobin or any further GI bleed, would contact GI stat. Housekeeping: DVT PPx-Alps (avoid heparin). Pain pathway. 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 Patient has been getting similar symptoms on and off since a few years, has been taking meclizine for Mnire's disease. Currently the symptoms started to be more frequent and last 2 weeks starting with ear fullness, spinning sensation, buzzing of ear. Patient has right ear deafness. Patient was seen in ER on September 29 for dizziness and was given diazepam during that visit and was suggested to continue her home doses of diazepam as required for her suspected Mnire's exacerbation. Even after going home patient persisted to have the symptoms, today she was feeling severe early sick in her stomach, nausea, stinging sensation in eyes. Approximately a week back patient had upper respiratory symptoms with nasal congestion, discharge and was prescribed Augmentin and Flonase and walk-in clinic. Patient completed 5 day course of antibiotic. Patient cannot think of any precipitating factors for her symptoms. Patient follows up with outpatient ENT who suggested to increase the dose of meclizine as needed. Vitals: Afebrile, pulse 116 on arrival improved to 687, RR 20, blood pressure 108/66 on arrival improved to 11 3/64, saturating well on room air On exam: A O 3, cooperative, no acute distress, neck supple, JVD normal, no lymphadenopathy, mucosa moist, no focal neurological deficit, PERRLA, EOMI, no nystagmus, cranial nerves intact, cerebellar reflexes intact, strength apparently normal, unsteady gait, Romberg is negative, no dependent edema, no obvious skin rashes or inflammation CVS: S1-S2, RRR, systolic murmur in mitral area, systolic murmur in parasternal area. RS: Clear to auscultate bilaterally. Abdomen: Soft, NT, ND, bowel sounds present. Labs: WBC 11.2, hemoglobin 11.4, hematocrit 33.9, platelet 293, neutrophils 84%, sodium 143, potassium 4.3, chloride 107, bicarbonate 25, BUN 37, creatinine 0.9, LFT unremarkable, troponin less than 0.01, UA positive for ketones CT head: No intracranial hemorrhage or acute intracranial pathology. 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 Generalized parenchymal atrophy of the brain with intracranial atherosclerotic disease and white matter changes most consistent with sequela of chronic microvascular ischemia. Assessment and plan 82-year-old female with past medical history significant for CVA 2006, Meniere's disease, HTN, HLD, rheumatic mitral regurgitation, history of thyroid cancer status post resection resulted in hypothyroidism, history of GI bleed, presented in ER for persistent dizziness. Patient has been getting this episodic dizziness more so in last 2 weeks with ear fullness, decreased hearing and right ear, dizziness, every episode lasting 4-6 hours. She was in ER on September 09 for similar symptoms, given a dose of diazepam with minimal symptom relief, suggested to continue when necessary meclizine and diazepam at home. Even after discharge patient's symptoms persisted so she came back to ER. Complete neurological examination unremarkable except patient has unsteady gait, there is no nystagmus. Patient has mild drop in H&H with elevated BUN, previous history of GI bleed, watchful for any new GI bleed. Otherwise labs unremarkable. This dizziness could be again secondary to her Mnire's disease, at the same time patient recently had upper respiratory infection, treated with Augmentin. A viral infection may be precipitating vestibulitis or labyrinthitis. But again there is noted nystagmus. Given her persistence and duration of the symptoms, any posterior fossa pathology should be ruled out for any lesions, tumors. CTA head done on 12/18/2016 shows no significant vascular abnormality and scattered nonstenotic calcifications. For her Meniere's disease, according to previous ENT note patient had tried diuretics in the past but had dehydration and kidney injury. Another trial of diuretic replacing her losartan would be beneficial. Lungs are try a dose of prednisone for suspected labyrinthitis. Patient appears very frustrated with the recurrence, unpredictability of the symptoms and no definitive answers. Patient was also offered surgery for Mnire's disease if symptoms persistent or frequent, but as the results of the surgery are not predictable, family is not considering it at this moment. + Persistent dizziness, likely secondary to Mnire's disease, ?Rule out posterior fossa lesion + Mild dehydration + History of CVA, HTN, hypothyroidism, HLD, mitral regurgitation - Admit to general medicine - Continue meclizine 25 3 times a day scheduled - Diazepam 2 mg every 8 hour as necessary for severe dizziness - Prednisone 40 mg once - Guaiac stool if H&H drops further - MRI brain in a.m. - ENT consult - Consider discontinuing losartan and starting HCTZ - Continue all her home medications - DVT prophylaxis with Alps : Low H&H, history of GI bleed - Adequate pain control - OT PT evaluation
[2017-10-02] VITALS: BP 116/66
--- NOTE | 2017-10-02 04:28 | Admission Certification ---
Admission Certification Certification Statement - As attending physician, I certify that at the time of - admission, based on clinical presentation, severity of - symptoms, need for further diagnostic testing and - therapeutic interventions, and risk of adverse outcomes - without in-hospital treatment, in my clinical assessment, - this patient requires an acute hospital stay for a minimum - of two nights or longer. I have also considered psychsocial - factors such as support system, advanced age, financial - issues, cognitive issues, and failed out-patient treatments, - past re-admission history, safety of patient, and lack of - compliance as applicable. Specific rationale supporting this admission is: Persistent dizziness, unable to ambulate probably secondary to Mnire's disease , rule out intracranial pathology
[2017-10-02 06:00] VITALS: BP 124/66
[2017-10-02 08:17] LABS: ABSOLUTE BASOPHIL COUNT 0 /CUMM (0.0-0.2); ABSOLUTE EOSINOPHIL COUNT 0.2 /CUMM (0.0-0.7); ABSOLUTE GRANULOCYTE CT 5.3 /CUMM (1.4-6.5); ABSOLUTE LYMPH COUNT 1.1 /CUMM (1.2-3.4); ABSOLUTE MONOCYTE COUNT 0.6 /CUMM (0.10-0.60); WHITE BLOOD CELL COUNT 7.2 /CUMM (4.8-10.8)
[2017-10-02 08:34] LABS: BASOPHIL % 0.3 % (0.0-2.0); EOSINOPHIL % 2.5 % (0-5); GRANULOCYTE % 74.1 % (42.2-75.2); MEAN CORPUSCULAR HGB CONC 33.5 G/DL (33.0-37.0); MEAN CORPUSCULAR VOLUME 83.8 FL (81.0-99.0); MEAN PLATELET VOLUME 7.3 FL (7.4-10.4); PLATELET COUNT 204 /CUMM (130-400); RBC DISTRIBUTION WIDTH 13.2 % (11.5-14.5)
[2017-10-02 08:39] LABS: HEMATOCRIT 24.9 % (37-47); RED BLOOD CELL CT 2.97 /CUMM (4.20-5.40)
--- NOTE | 2017-10-02 09:24 | PN- Housestaff ---
Shakila CLAY,Danny 10/02/17 0924: Subjective Follow-up For: Dizziness Anemia with questionable GI bleed Subjective: Patient was seen and examined at bedside. She was resting comfortably. She had no acute events overnight. She states that she continues to feel episodes of positional dizziness and lightheadedness. She reports no improvement overall, and denies any repeat episodes of vomiting, nausea. She denies any chest pain, shortness breath, fever, chills. Review of Systems Constitutional: Denies: chills, fever. Cardiovascular: Denies: chest pain, palpitations. Respiratory: Denies: cough, short of breath. Gastrointestinal: Denies: abdominal pain, diarrhea, melena, nausea, changes in stool. Genitourinary: Reports: no symptoms. Musculoskeletal: Reports: no symptoms. Neurological/Psychological: Reports: other (dizziness). Objective Last 24 Hrs of Vital Signs/I&O Vital Signs Date Time Temp Pulse Resp B/P B/P Pulse O2 O2 Flow FiO2 Mean Ox Delivery Rate 10/02 0600 98.1 94 20 124/66 94 Room Air 10/02 0000 98.2 102 20 116/66 97 Room Air 10/01 2301 97.6 98 20 122/58 98 Room Air 10/01 2155 97.1 98 20 112/56 96 Room Air 10/01 2037 90 20 142/53 96 Room Air 10/01 2012 97.6 94 18 131/58 98 Room Air 10/01 1850 97.1 94 18 113/64 97 Room Air 10/01 1737 87 18 102/53 96 Room Air 10/01 1728 Room Air 10/01 1653 96.4 116 20 108/66 97 Room Air Intake & Output 10/02 1600 10/02 0800 10/02 0000 Intake Total 840 1000 Output Total Balance 840 1000 Intake, IV 600 1000 Intake, Oral 240 Patient 132 lb Weight Weight Reported by Patient Measurement Method Physical Exam General Appearance: Alert, Oriented X3, Cooperative, No Acute Distress Skin Temp/Moisture Exam: Warm/Dry Sepsis Skin Exam (color): Normal for Ethnicity Cardiovascular: Regular Rate, Normal S1, Normal S2, systolic murmur Lungs: Clear to Auscultation, Normal Air Movement Abdomen: Normal Bowel Sounds, Soft, No Tenderness Neurological: Normal Speech, Normal Tone, Sensation Intact, Cranial Nerves 3-12 NL Extremities: No Clubbing, No Cyanosis, No Edema Current Medications: Current Medications Sig/Arun Start time Last Medication Dose Route Stop Time Status Admin Acetaminophen 650 MG Q8 10/02 0600 AC 10/02 PO 0556 Alendronate Sodium 70 MG QSUN 10/02 0700 AC 10/02 PO 0554 Atorvastatin Calcium 10 MG 1700 10/02 1700 AC PO Diazepam 2 MG BID PRN 10/02 0115 AC PO Diazepam 2.5 MG ONCE ONE 10/01 2030 CAN IV 10/01 2031 Levothyroxine Sodium 0.075 MG DAILY AC 10/02 0700 AC 10/02 PO 0554 Lorazepam 0.5 MG ONCE ONE 10/010 DC 10/01 IV 10/01 Lorazepam 0 .STK-MED ONE 10/01 2107 DC .ROUTE Losartan Potassium 50 MG DAILY 10/02 1000 AC PO Meclizine HCl 25 MG TID 10/02 0200 AC 10/02 PO 0555 Meclizine HCl 25 MG TID PRN 10/02 0115 DC PO Multivitamins 1 TAB DAILY 10/02 1000 AC PO Ondansetron HCl 4 MG BID 10/02 1000 DC PO Ondansetron HCl 4 MG BID PRN 10/02 0630 AC PO Ondansetron HCl 4 MG Q8P PRN 10/01 2245 DC IV Ondansetron HCl 4 MG ONCE ONE 10/01 2030 DC 10/01 PO 10/01 Ondansetron HCl 0 .STK-MED ONE 10/01 2030 DC PO Prednisone 40 MG ONCE ONE 10/02 0130 DC 10/02 PO 10/02 013 0555 Sodium Chloride 1,000 ML ONCE ONE 10/01 2245 AC 10/02 IV 10/02 184 0046 Sodium Chloride 1,000 ML BOLUS ONE 10/01 2145 DC 10/01 IV 10/01 Sodium Chloride 1,000 ML BOLUS ONE 10/01 2030 DC 10/01 IV 10/01 Last 24 Hrs of Lab/Manuelito Results Last 24 Hrs of Labs/Mics: Laboratory Tests 10/02/17 1820: CBC w Diff NO MAN DIFF REQ, RBC 3.22 L, MCV 83.7, MCH 28.0, RDW 13.4, MPV 7.4, Gran % 89.2 H, Lymphocytes % 8.5 L, Monocytes % 2.2, Eosinophils % 0, Basophils % 0.1, Absolute Granulocytes 7.6 H, Absolute Lymphocytes 0.7 L, Absolute Monocytes 0.2, Absolute Eosinophils 0, Absolute Basophils 0, PUBS MCHC 33.4 10/02/17 0730: Anion Gap 7, Estimated GFR > 60, BUN/Creatinine Ratio 67.1 H, CBC w Diff NO MAN DIFF REQ, RBC 2.97 L, MCV 83.8, MCH 28.0, RDW 13.2, MPV 7.3 L, Gran % 74.1, Lymphocytes % 15.2 L, Monocytes % 7.9, Eosinophils % 2.5, Basophils % 0.3, Absolute Granulocytes 5.3, Absolute Lymphocytes 1.1 L, Absolute Monocytes 0.6, Absolute Eosinophils 0.2, Absolute Basophils 0, PUBS MCHC 33.5 Orders Radiology Findings: MRI head 1. No acute intracranial abnormalities identified. No acute infarcts. No intracranial hemorrhage. No acute PICA territory infarcts. 2. No gross evidence of vestibular schwannomas (acoustic neuromas). Of note, thin section images through the internal auditory canals were not obtained as part of this routine unenhanced MRI of the brain. If clinical concern persists regarding possible vestibular schwannomas, consider further evaluation with repeat thin section, dedicated internal auditory canal protocol MRI of the brain. 3. 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 4. Moderate white matter chronic small vessel ischemic disease. 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 CT head and MRI have have ruled out acute stroke or evidence of intracranial mass. ENT was consulted to refuse to see patient and recommended to continue current management referral as an outpatient. -Continue with meclizine and diazepam -Physical therapy for gait instability -Patient to see ENT after discharge #Questionable GI bleed Patient has history of GI bleed secondary to PUD and reported one episode of nausea and hematemesis on 10/01/17. She has not had any repeat episodes of nausea nausea or vomiting. She has not noted any dark or bloody stools. Patient's H/H initially dropped this morning, repeat check in the afternoon showed up trend. Orthostatic vitals were negative. -Guaiac stools -Continue to monitor CBC, will consult GIwith any repeat episodes of bleeding or significant drop in H&H tomorrow -Continue with PPI #DVT prophylaxis -ALPS, holding pharmacologic DVT prophylaxis in light of potential GI bleed #CODE STATUS Full code Problem List: 1. Meniere disease 2. Anemia Pain Ratin Pain Location: none Pain Goal: Remain pain free Pain Plan: pain pathway Tomorrow's Labs & Rationales: cbc, bep, PT Rehana CLAY,Cole 10/02/17 1229: Attending MD Review Statement Attending Statement Attending MD Statement: examined this patient, discuss w/resident/PA/[employer], agreed w/resident/PA/[employer], discussed with family, reviewed EMR data (avail), discussed with nursing, discussed with case mgmt, reviewed images, amended to note Attending Assessment/Plan: 82-year-old female with past medical history significant for CVA in 2006, hypertension, hyperlipidemia, rheumatic mitral regurgitation, Mnire's disease, history of thyroid cancer status post resection resulting in hypothyroidism, history of GI bleed has been admitted with recurrent episodes of dizziness for the last 2 weeks. She also reports along with dizziness, decreased hearing in her right ear. Patient was seen and examined on the bedside and nonfocal neurological examination but was unable to came out of the bed due to instability in her gait. She reported that she feels frustrated as nobody can find out the cause for her dizziness. Patient also reports of mild episode of vomiting with blood in it last night. Labs noted which showed a significant drop in her H&H. MRI of the head done which showed no acute PICA territory infarct and no evidence of acoustic neuroma was but recommended further evaluation with a repeat thin section MRI of the internal auditory canal. Will need an ENT consult to further comment on this which seems difficult over the weekend. Meanwhile, we will monitor her H&H, guaiac her, repeat CBC in the p.m., put her on a PPI and will consider GI consult if there is further drop, will check her orthostatics. I had a detailed discussion with the patient and her about the different possibilities of dizziness. Patient agreed off staying in the hospital unless and etiology is found. We'll continue the rest of her home medications and will DVT prophylaxis with Alps.
--- NOTE | 2017-10-02 10:30 | MRI REPORT ---
EXAMINATION: MR BRAIN WITHOUT CONTRAST CLINICAL INFORMATION: History of Meniere's disease. Rule out neuromas. COMPARISON: CT head 10/01/2017, 05/06/2017, 01/16/2017, CT angiography head and neck 12/18/2016 TECHNIQUE: MRI of the brain without contrast was obtained using routine sequences. FINDINGS: Diffusion-weighted images demonstrate no areas of abnormal decreased diffusion to suggest acute infarcts. Focal encephalomalacia is present in the superior right temporal lobe within the expected territory of the inferior division of the right middle cerebral artery corresponding to a chronic infarct is noted on the comparison CTs. A moderate number of supratentorial punctate periventricular and subcortical T2 hyperintensities are noted along with patchy T2 hyperintensities within the ventral leonidas most suspicious for white matter chronic small vessel ischemic disease. No intracranial hemorrhage or tumors are noted susceptibility weighted images demonstrate vague curvilinear low signal intensity in the region of the chronic right MCA infarct which may represent chronic blood products or possibly calcifications related to chronic laminar process. Grossly normal flow-related signal intensity is identified in the major intracranial vessels and dural sinuses. Mild hyperostosis frontalis interna is noted. The orbits and globes are grossly normal aside from bilateral lens extractions and artifact related to a left scleral buckle. No suspicious marrow signal abnormalities are identified. The internal auditory canals are grossly normal in appearance. No gross internal auditory canal lesions are identified on axial T2 FSE images. Mild mucosal thickening is noted within the anterior cells predominantly on the right. IMPRESSION: 1. No acute intracranial abnormalities identified. No acute infarcts. No intracranial hemorrhage. No acute PICA territory infarcts. 2. No gross evidence of vestibular schwannomas (acoustic neuromas). Of note, thin section images through the internal auditory canals were not obtained as part of this routine unenhanced MRI of the brain. If clinical concern persists regarding possible vestibular schwannomas, consider further evaluation with repeat thin section, dedicated internal auditory canal protocol MRI of the brain. 3. 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 4. Moderate white matter chronic small vessel ischemic disease.
[2017-10-02 14:39] VITALS: BP 130/62
[2017-10-02 19:07] LABS: ABSOLUTE BASOPHIL COUNT 0 /CUMM (0.0-0.2); ABSOLUTE EOSINOPHIL COUNT 0 /CUMM (0.0-0.7); ABSOLUTE GRANULOCYTE CT 7.6 /CUMM (1.4-6.5); ABSOLUTE LYMPH COUNT 0.7 /CUMM (1.2-3.4); ABSOLUTE MONOCYTE COUNT 0.2 /CUMM (0.10-0.60); BASOPHIL % 0.1 % (0.0-2.0); EOSINOPHIL % 0 % (0-5); MEAN CORPUSCULAR HGB CONC 33.4 G/DL (33.0-37.0); MEAN CORPUSCULAR VOLUME 83.7 FL (81.0-99.0); MEAN PLATELET VOLUME 7.4 FL (7.4-10.4); PLATELET COUNT 234 /CUMM (130-400); RBC DISTRIBUTION WIDTH 13.4 % (11.5-14.5); RED BLOOD CELL CT 3.22 /CUMM (4.20-5.40); WHITE BLOOD CELL COUNT 8.5 /CUMM (4.8-10.8)
[2017-10-02 19:39] LABS: GRANULOCYTE % 89.2 % (42.2-75.2)
[2017-10-02 22:20] VITALS: BP 120/72
--- NOTE | 2017-10-03 05:49 | PN- Housestaff ---
See Addendum Subjective Follow-up For: Dizziness Anemia with questionable GI bleed Subjective: Patient was seen and examined at bedside. She was resting comfortably. She had an episode of epistaxis overnight, claims that this happens relatively frequently and she was able to stop it on her own. She now complains of mild nasal congestion. She continues to complain of positional vertigo, and feeling unsteady on her feet. She denies any repeat episodes of hematemesis, chills, nausea, vomiting, fever, chills, chest pain, shortness of breath, lightheadedness, melena, bloody bowel movement. Review of Systems Constitutional: Denies: chills, malaise. EENTM: Reports: nasal congestion, epistaxis. Cardiovascular: Denies: chest pain, palpitations. Respiratory: Denies: cough, short of breath. Gastrointestinal: Denies: abdominal pain, constipation, diarrhea, melena, nausea, bloody stool. Genitourinary: Reports: no symptoms. Objective Last 24 Hrs of Vital Signs/I&O Vital Signs Date Time Temp Pulse Resp B/P B/P Pulse O2 O2 Flow FiO2 Mean Ox Delivery Rate 10/02 2220 98.2 97 18 120/72 96 Room Air 10/02 1439 98.2 60 20 130/62 96 10/02 0943 89 140/90 10/02 0600 98.1 94 20 124/66 94 Room Air Intake & Output 10/03 0800 10/03 0000 10/02 1600 Intake Total 1200 800 Output Total 500 Balance 1200 300 Intake, IV 400 400 Intake, Oral 800 400 Number 0 Bowel Movements Output, Urine 500 Physical Exam General Appearance: Alert, Oriented X3, Cooperative, No Acute Distress Skin Temp/Moisture Exam: Warm/Dry Cardiovascular: Regular Rate, Normal S1, Normal S2, systolic murmur Lungs: Clear to Auscultation, Normal Air Movement Abdomen: Normal Bowel Sounds, Soft, No Tenderness Neurological: Normal Speech, Sensation Intact Extremities: No Clubbing, No Cyanosis, No Edema Current Medications: Current Medications Sig/Arun Start time Last Medication Dose Route Stop Time Status Admin Acetaminophen 650 MG Q8 10/02 0600 AC 10/02 PO 2147 Alendronate Sodium 70 MG QSUN 10/02 0700 AC 10/02 PO 0554 Atorvastatin Calcium 10 MG 1700 10/02 1700 AC 10/02 PO 1551 Diazepam 2 MG BID PRN 10/02 0115 AC PO Levothyroxine Sodium 0.075 MG DAILY AC 10/02 0700 AC 10/02 PO 0554 Losartan Potassium 50 MG DAILY 10/02 1000 AC 10/02 PO 0943 Meclizine HCl 25 MG TID 10/02 0200 AC 10/02 PO 2147 Multivitamins 1 TAB DAILY 10/02 1000 AC 10/02 PO 0943 Ondansetron HCl 4 MG BID 10/02 1000 DC PO Ondansetron HCl 4 MG BID PRN 10/02 0630 AC PO Ondansetron HCl 4 MG Q8P PRN 10/01 2245 DC IV Pantoprazole Sodium 40 MG DAILY 10/02 1030 AC 10/02 IV 1154 Sodium Chloride 1,000 ML ONCE ONE 10/015 DC 10/02 IV 10/02 1844 0046 Last 24 Hrs of Lab/Manuelito Results Last 24 Hrs of Labs/Mics: Laboratory Tests 10/03/17 0850: Anion Gap 9, Estimated GFR > 60, BUN/Creatinine Ratio 30.0 H, PT 11.4, INR 1.09 , CBC w Diff NO MAN DIFF REQ, RBC 3.08 L, MCV 83.8, MCH 28.5, RDW 13.6, MPV 7.1 L, Gran % 80.3 H, Lymphocytes % 11.8 L, Monocytes % 5.6, Eosinophils % 2.1, Basophils % 0.2, Absolute Granulocytes 7.2 H, Absolute Lymphocytes 1.1 L, Absolute Monocytes 0.5, Absolute Eosinophils 0.2, Absolute Basophils 0, PUBS MCHC 34.0 10/02/17 1820: CBC w Diff NO MAN DIFF REQ, RBC 3.22 L, MCV 83.7, MCH 28.0, RDW 13.4, MPV 7.4, Gran % 89.2 H, Lymphocytes % 8.5 L, Monocytes % 2.2, Eosinophils % 0, Basophils % 0.1, Absolute Granulocytes 7.6 H, Absolute Lymphocytes 0.7 L, Absolute Monocytes 0.2, Absolute Eosinophils 0, Absolute Basophils 0, PUBS MCHC 33.4 Assessment/Plan Assessment: Patient is an 82-year-old female with a PMH significant for TIA, Mnire's disease, HTN, HLD, 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 CT head and MRI have have ruled out acute stroke or evidence of intracranial mass. ENT was consulted to refuse to see patient and recommended to continue current management referral as an outpatient. -Continue with meclizine and diazepam -Physical therapy for gait instability, and positional vertigo -Patient to see ENT after discharge -If patient stable overnight anticipated discharge after seen by PT #Questionable GI bleed Patient has history of GI bleed secondary to PUD and reported one episode of nausea and hematemesis on 10/01/17. She has not had any repeat episodes of nausea nausea or vomiting. She has not noted any dark or bloody stools. Orthostatic vitals were negative. H/H has remained stable in spite of episode of epistaxis last night. -Guaiac stools -Continue to monitor CBC, will consult GIwith any repeat episodes of bleeding or significant drop in H&H tomorrow -Continue with PPI #Mild hypernatremia -Encourage by mouth intake -Will follow BEP tomorrow #DVT prophylaxis -ALPS, holding pharmacologic DVT prophylaxis in light of potential GI bleed #CODE STATUS Full code Problem List: 1. Meniere disease 2. Anemia 3. Vertigo Pain Ratin Pain Location: none Pain Goal: Remain pain free Pain Plan: pain pathway Tomorrow's Labs & Rationales: cbc, bep
[2017-10-03 06:40] VITALS: BP 124/70
[2017-10-03 09:29] LABS: ABSOLUTE BASOPHIL COUNT 0 /CUMM (0.0-0.2); ABSOLUTE EOSINOPHIL COUNT 0.2 /CUMM (0.0-0.7); ABSOLUTE GRANULOCYTE CT 7.2 /CUMM (1.4-6.5); ABSOLUTE LYMPH COUNT 1.1 /CUMM (1.2-3.4); ABSOLUTE MONOCYTE COUNT 0.5 /CUMM (0.10-0.60); BASOPHIL % 0.2 % (0.0-2.0); EOSINOPHIL % 2.1 % (0-5); GRANULOCYTE % 80.3 % (42.2-75.2); HEMATOCRIT 25.8 % (37-47); MEAN CORPUSCULAR HGB 28.5 PG (27.0-31.0); MEAN CORPUSCULAR VOLUME 83.8 FL (81.0-99.0); MEAN PLATELET VOLUME 7.1 FL (7.4-10.4); PLATELET COUNT 215 /CUMM (130-400); RBC DISTRIBUTION WIDTH 13.6 % (11.5-14.5); RED BLOOD CELL CT 3.08 /CUMM (4.20-5.40)
[2017-10-03 09:36] LABS: PT 11.4 SEC (9.4-12.5)
[2017-10-03 14:27] VITALS: BP 148/78
[2017-10-03 22:14] VITALS: BP 134/60
[2017-10-04 07:05] VITALS: BP 120/68
[2017-10-04 08:41] LABS: ABSOLUTE BASOPHIL COUNT 0 /CUMM (0.0-0.2); ABSOLUTE EOSINOPHIL COUNT 0.3 /CUMM (0.0-0.7); ABSOLUTE GRANULOCYTE CT 8.9 /CUMM (1.4-6.5); ABSOLUTE LYMPH COUNT 0.9 /CUMM (1.2-3.4); ABSOLUTE MONOCYTE COUNT 0.5 /CUMM (0.10-0.60); BASOPHIL % 0.2 % (0.0-2.0); EOSINOPHIL % 2.8 % (0-5); GRANULOCYTE % 83.6 % (42.2-75.2); MEAN CORPUSCULAR HGB 28.3 PG (27.0-31.0); MEAN CORPUSCULAR HGB CONC 33.9 G/DL (33.0-37.0); MEAN CORPUSCULAR VOLUME 83.7 FL (81.0-99.0); MEAN PLATELET VOLUME 7.5 FL (7.4-10.4); PLATELET COUNT 246 /CUMM (130-400); RBC DISTRIBUTION WIDTH 13.6 % (11.5-14.5); RED BLOOD CELL CT 3.23 /CUMM (4.20-5.40)
[2017-10-04] MEDS ORDERED: OMEPRAZOLE40 M1 PO (09:02)
[2017-10-04 09:45] LABS: WHITE BLOOD CELL COUNT 10.7 /CUMM (4.8-10.8)
--- NOTE | 2017-10-04 13:43 | PN- Att Addend ---
Attending Addendum Attending Brief Note Patient seen and examined. Resting comfortably not in any acute distress. No issues overnight reported by nursing staff. She reports some improvement in her dizziness today. Her orthostatic vitals were negative. Patient has a history of Mnire's disease for which she follows with the ENT specialist on the outpatient. She is on meclizine and Valium but does have periods of exacerbation on and off. She is currently doing well and awaiting evaluation by the physical therapy service. We will continue her on her meclizine and Valium with outpatient follow-up with the ENT service. In the emergency room she was reported to have had bloody emesis. reports that patient has frequent bouts of vomiting lasting up to 4 hours on frequent occasions. He reports that these episodes usually subside spontaneously and they have not sought medical evaluation. She denies any abdominal pain. In July she had presented to emergency room with complaint of chest pain and abdominal pain. CTA abdomen and pelvis was done to rule out dissection. It showed a normal size and shape liver. The gallbladder appeared distended and contained a large stone and layering small stones too numerous to count however there is no evidence of cholecystitis. There was strong possibility of common bile duct stones. She was discharged on Mobic for pain control at that time from the emergency room. She was on a PPI as an outpatient following her admission earlier this year for GI bleed but this was stopped by her primary care provider. On examination her abdomen is soft, nontender with normal bowel sounds. No right upper quadrant tenderness. Laboratory data her hemoglobin is 9.1 today. It was 11.4 on admission 3 days ago. Her baseline hemoglobin is around 13. Her BUNs is also elevated suggestive of gastrointestinal bleeding. Her LFTs are within normal limits. Problems: 1. Recurrent vertigo; secondary to Mnire's disease. 2. Upper gastrointestinal bleeding; with acute blood loss anemia. 3. Recurrent vomiting 4. Cholelithiasis with possible choledocholithiasis Plan: -Continue meclizine and Valium for her Mnire's disease. Awaiting evaluation by the physical therapy service. -Keep patient nothing by mouth for possible EGD in the a.m. Monitor hemoglobin level daily. -Her upper gastrointestinal bleeding may be secondary to her use of aspirin (for stroke prophylaxis) Mobic was recently started in the emergency room. Hold aspirin therapy and NSAIDs for now. Continue patient on intravenous PPI therapy. Also in the differential is a Charline-Larios tear from her recurrent vomiting. -Patient may be having intermittent biliary obstruction from her cholelithiasis. Recommend consultation with the surgical service. -DVT prophylaxis with bilateral compression devices.
--- NOTE | 2017-10-04 13:46 | PN- Housestaff ---
Subjective Follow-up For: Dizziness Anemia with questionable GI bleed Subjective: Patient was seen and examined at bedside. She was resting comfortably. She had no acute events overnight. She continues to complain of positional vertigo, and feeling unsteady on her feet. She denies any repeat episodes of hematemesis, chills, nausea, vomiting, fever, chills, chest pain, shortness of breath, lightheadedness, melena, bloody bowel movement. Review of Systems Constitutional: Denies: chills, fever. Cardiovascular: Denies: chest pain, palpitations. Respiratory: Denies: cough, short of breath. Gastrointestinal: Denies: abdominal pain, diarrhea, melena, nausea, bloody stool, vomiting. Genitourinary: Reports: no symptoms. Musculoskeletal: Reports: no symptoms. Objective Last 24 Hrs of Vital Signs/I&O Vital Signs Date Time Temp Pulse Resp B/P B/P Pulse O2 O2 Flow FiO2 Mean Ox Delivery Rate 10/04 0848 80 120/68 10/04 0705 97.9 80 20 120/68 96 Room Air 10/03 2214 98.1 89 20 134/60 97 Room Air 10/03 1427 98.1 84 20 148/78 98 Room Air Intake & Output 10/04 1600 10/04 0800 10/04 0000 Intake Total 480 480 Output Total Balance 480 480 Intake, Oral 480 480 Number 1 Bowel Movements Physical Exam General Appearance: Alert, Oriented X3, Cooperative, No Acute Distress Skin Temp/Moisture Exam: Warm/Dry Sepsis Skin Exam (color): Normal for Ethnicity Cardiovascular: Regular Rate, Normal S1, Normal S2, No Murmurs Lungs: Clear to Auscultation, Normal Air Movement Abdomen: Normal Bowel Sounds, Soft, No Tenderness, negative salas's sign Neurological: Normal Speech, Sensation Intact Current Medications: Current Medications Sig/Arun Start time Last Medication Dose Route Stop Time Status Admin Acetaminophen 650 MG Q8 10/02 0600 AC 10/04 PO 0522 Alendronate Sodium 70 MG QSUN 10/02 0700 AC 10/02 PO 0554 Atorvastatin Calcium 10 MG 1700 10/02 1700 AC 10/03 PO 1548 Diazepam 2 MG BID PRN 10/02 0115 AC PO Docusate Sodium 100 MG AT BEDTIME 10/03 2200 AC 10/03 PO 210 Levothyroxine Sodium 0.075 MG DAILY AC 10/02 0700 AC 10/04 PO 0523 Losartan Potassium 50 MG DAILY 10/02 1000 AC 10/04 PO 0848 Meclizine HCl 25 MG TID 10/02 0200 AC 10/04 PO 0848 Multivitamins 1 TAB DAILY 10/02 1000 AC 10/04 PO 0946 Ondansetron HCl 4 MG BID PRN 10/02 0630 AC PO Pantoprazole Sodium 40 MG DAILY 10/02 1030 AC 10/04 IV 0849 Last 24 Hrs of Lab/Manuelito Results Last 24 Hrs of Labs/Mics: Laboratory Tests 10/04/17 0740: Anion Gap 7, Estimated GFR > 60, BUN/Creatinine Ratio 28.6 H, Iron 35 L, TIBC 251 L, % Saturation 13 L, Ferritin Pending, Vitamin B12 Pending, Folate Pending, CBC w Diff NO MAN DIFF REQ, RBC 3.23 L, MCV 83.7, MCH 28.3, RDW 13.6, MPV 7.5, Gran % 83.6 H, Lymphocytes % 8.5 L, Monocytes % 4.9, Eosinophils % 2.8, Basophils % 0.2, Absolute Granulocytes 8.9 H, Absolute Lymphocytes 0.9 L, Absolute Monocytes 0.5, Absolute Eosinophils 0.3, Absolute Basophils 0, PUBS MCHC 33.9 Assessment/Plan Assessment: Patient is an 82-year-old female with a PMH significant for TIA, Mnire's disease, HTN, HLD, 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 CT head and MRI have have ruled out acute stroke or evidence of intracranial mass. ENT was consulted to refuse to see patient and recommended to continue current management referral as an outpatient. -Continue with meclizine and diazepam -PT has cleared patient to go home once medically stable -Patient to see ENT after discharge #Questionable GI bleed Patient has history of GI bleed secondary to PUD and reported one episode of nausea and hematemesis on 10/01/17. She has not had any repeat episodes of nausea nausea or vomiting. She has not noted any dark or bloody stools. Orthostatic vitals were negative. H/H has remained stable but is decreased from baseline. -Guaiac stools -will go for EGD tomorrow, if negative will go for colonoscopy -Continue with PPI #cholelithiasis Given old imaging showing cholelithiasis and biliary dilatation and the patient' s history of repeat episodes of emesis will consult Gen surg for possible biliary obstruction. #DVT prophylaxis -ALPS, holding pharmacologic DVT prophylaxis in light of potential GI bleed #CODE STATUS Full code Problem List: 1. Anemia 2. Meniere disease Pain Ratin Pain Location: none Pain Goal: Remain pain free Pain Plan: pain pathway Tomorrow's Labs & Rationales: cbc
[2017-10-04 14:18] VITALS: BP 132/70
--- NOTE | 2017-10-04 16:47 | Cons- Gastroenterology ---
General Information and HPI Consulting Request Date of Consult: 10/04/17 Requested By: Pat Gillette MD Reason for Consult: 1. Hematemesis 2. Acute Blood Loss Anemia Source of Information: patient, Electronic Medical Record Exam Limitations: no limitations History of Present Illness: Patient is an 82-year-old white female with a past medical history significant from them years disease. She has a history of repeated episodes of vertigo associated with nausea and vomiting. She was admitted to [facility] in January of this year with dizziness, nausea and vomiting, as well as hematemesis. At that time she underwent upper endoscopy performed by Dr. Mikie Lanza which was unrevealing. At that time her H/H was 12.3/36.6 She was admitted to [facility] on 10/01 after an episode of coffee ground emesis as well as emesis of fresh blood which occurred in the [facility]. Lorenza had initially been seen in the ED with a chief complaint of nausea and vomiting of clear liquid associated with an episode of vertigo. However, after being observed in the ED for a period of time she continued to vomit and during one of these episodes had bloody emesis. Her H/H on admission to [facility] was 8.3/24.4. She had had no premonitory melena nor bright red blood per rectum. She had had no abdominal pain. She had had no change in bowel habit or stool caliber. She has had a colonoscopy but not in the several years. Allergies/Medications Allergies: Coded Allergies: Penicillins (UNKNOWN 06/09/16) PT. STATES SHE WAS TOLD SHE IS ALLERGIC BUT DOES NOT KNOW THE REACTION. Home Med List: Alendronate Sodium 70 MG TABLET 70 MG PO QSUN BONES (Reported) TAKE WITH FULL GLASS OF WATER ON AN EMPTY STOMACH WHILE REMAINING IN AN UPRIGHT POSITION Aspirin (Ecotrin*) 81 MG TABLET.DR 1 TAB PO DAILY TIA (Reported) Reason to Stop at ADM: GI bleeding Atorvastatin Calcium 10 MG TABLET 1 TAB PO DAILY CHOLESTEROL (Reported) Bioflav,Lemon/Vit Bcomp,C (Lipo-Flavonoid Plus Caplet) 200 MG-100 MG TABLET 1 TAB PO DAILY VITAMIN (Reported) Diazepam (Valium) 2 MG TABLET 1 TAB PO BID PRN vertigo Ergocalciferol (Vitamin D2) (Vitamin D2) 50,000 UNIT CAPSULE 1 CAP PO MONTHLY supplement (Reported) Levothyroxine Sodium (Levoxyl) 75 MCG TABLET 1 TAB PO DAILY AC THYROID ( Reported) Losartan Potassium (Cozaar) 50 MG TABLET 1 TAB PO DAILY HTN (Reported) Meclizine HCl 25 MG TABLET 1 TAB PO TIDPRN PRN VERTIGO (Reported) Omeprazole 40 MG CAPSULE.DR 1 CAP PO DAILY GASTRITIS Ondansetron (Zofran Odt) 4 MG TAB.RAPDIS 1 TAB SL TID PRN NAUSEA Current Medications: Current Medications Sig/Arun Start time Last Medication Dose Route Stop Time Status Admin Acetaminophen 650 MG Q8 10/02 0600 AC 10/04 PO 1618 Alendronate Sodium 70 MG QSUN 10/02 0700 AC 10/02 PO 0554 Atorvastatin Calcium 10 MG 1700 10/02 1700 AC 10/04 PO 1617 Diazepam 2 MG BID PRN 10/02 0115 AC PO Docusate Sodium 100 MG AT BEDTIME 10/03 2200 AC 10/03 PO 2103 Levothyroxine Sodium 0.075 MG DAILY AC 10/02 0700 AC 10/04 PO 0523 Losartan Potassium 50 MG DAILY 10/02 1000 AC 10/04 PO 0848 Meclizine HCl 25 MG TID 10/02 0200 AC 10/04 PO 1618 Multivitamins 1 TAB DAILY 10/02 1000 AC 10/04 PO 0946 Ondansetron HCl 4 MG BID PRN 10/02 0630 AC PO Pantoprazole Sodium 40 MG DAILY 10/02 1030 AC 10/04 IV 0849 Past History Travel History Traveled to [place] past 21 day No Medical History Blood Transfusion Hx: Yes Neurological: vertigo, TIA 2006 ?MENIERES EENT: allergies, cataracts, epistaxis, sinusitis, L EYE DETACHED RETINA Cardiovascular: hypertension, hyperlipidemia, mitral regurgitation Respiratory: NONE Gastrointestinal: ? 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 Home Who Do You Live With? spouse Services at Home: None Primary Language: Cymraes Smoking Status: Never Smoked ETOH Use: denies use Illicit Drug Use: denies illicit drug use Functional Ability ADLs Independent: dressing, eating, toileting, bathing. Ambulation: independent IADLs Independent: shopping, housework, finances, food prep, telephone, transportation , medication admin. Exam & Diagnostic Data Vital Signs and I&O Vital Signs Date Time Temp Pulse Resp B/P B/P Pulse O2 O2 Flow FiO2 Mean Ox Delivery Rate 10/04 1418 98.2 88 20 132/70 98 Room Air 10/04 0848 80 120/68 10/04 0705 97.9 80 20 120/68 96 Room Air 10/03 2214 98.1 89 20 134/60 97 Room Air Intake & Output 10/04 1600 10/04 0400 10/03 1600 10/03 0400 10/02 1600 10/02 0400 Intake Total 480 722 181 7308 1640 1000 Output Total 550 500 Balance 480 367 681 4711 1140 1000 Intake, IV 400 1000 1000 Intake, Oral 480 480 900 800 640 Number 1 0 Bowel Movements Output, Urine 550 500 Patient 132 lb Weight Weight Reported by Patient Measurement Method Physical Exam General Appearance: well developed/nourished, no apparent distress, alert, awake Head: atraumatic, normal appearance Eyes: Bilateral: normal appearance. Ears, Nose, Throat: hearing grossly normal Neck: supple, full range of motion Respiratory: normal breath sounds, chest non-tender, no respiratory distress Cardiovascular: regular rate/rhythm, murmur, Normal S1 and S2, II/ holosystolic murmur, LSB Gastrointestinal: normal bowel sounds, soft, non-tender, no organomegaly Back: normal inspection, normal range of motion Neurologic/Psych: no motor/sensory deficits, awake, alert, oriented x 3 Cranial Nerves: Cranial Nerves II-XII grossly intact Results Pertinent Lab Results: Laboratory Tests 10/04 10/03 0740 0850 Chemistry Sodium (137 - 145 mmol/L) 142 146 H Potassium (3.5 - 5.1 mmol/L) 4.1 3.5 Chloride (98 - 107 mmol/L) 110 H 111 H Carbon Dioxide (22 - 30 mmol/L) 26 25 Anion Gap (5 - 16) 7 9 BUN (7 - 17 mg/dL) 20 H 24 H Creatinine (0.5 - 1.0 mg/dL) 0.7 0.8 Estimated GFR (>60 ml/min) > 60 > 60 BUN/Creatinine Ratio (7 - 25 %) 28.6 H 30.0 H Coagulation PT (9.4 - 12.5 SEC) 11.4 INR (0.90 - 1.19) 1.09 Hematology CBC w Diff NO MAN DIFF REQ NO MAN DIFF REQ WBC (4.8 - 10.8 /CUMM) 10.7 9.0 RBC (4.20 - 5.40 /CUMM) 3.23 L 3.08 L Hgb (12.0 - 16.0 G/DL) 9.1 L 8.8 L Hct (37 - 47 %) 27.0 L 25.8 L MCV (81.0 - 99.0 FL) 83.7 83.8 MCH (27.0 - 31.0 PG) 28.3 28.5 RDW (11.5 - 14.5 %) 13.6 13.6 Plt Count (130 - 400 /CUMM) 246 215 MPV (7.4 - 10.4 FL) 7.5 7.1 L Gran % (42.2 - 75.2 %) 83.6 H 80.3 H Lymphocytes % (20.5 - 51.1 %) 8.5 L 11.8 L Monocytes % (1.7 - 9.3 %) 4.9 5.6 Eosinophils % (0 - 5 %) 2.8 2.1 Basophils % (0.0 - 2.0 %) 0.2 0.2 Absolute Granulocytes (1.4 - 6.5 /CUMM) 8.9 H 7.2 H Absolute Lymphocytes (1.2 - 3.4 /CUMM) 0.9 L 1.1 L Absolute Monocytes (0.10 - 0.60 /CUMM) 0.5 0.5 Absolute Eosinophils (0.0 - 0.7 /CUMM) 0.3 0.2 Absolute Basophils (0.0 - 0.2 /CUMM) 0 0 PUBS MCHC (33.0 - 37.0 G/DL) 33.9 34.0 10/02 10/02 1820 0730 Chemistry Sodium (137 - 145 mmol/L) 143 Potassium (3.5 - 5.1 mmol/L) 4.3 Chloride (98 - 107 mmol/L) 114 H Carbon Dioxide (22 - 30 mmol/L) 22 Anion Gap (5 - 16) 7 BUN (7 - 17 mg/dL) 47 H Creatinine (0.5 - 1.0 mg/dL) 0.7 Estimated GFR (>60 ml/min) > 60 BUN/Creatinine Ratio (7 - 25 %) 67.1 H Hematology CBC w Diff NO MAN DIFF REQ NO MAN DIFF REQ WBC (4.8 - 10.8 /CUMM) 8.5 7.2 RBC (4.20 - 5.40 /CUMM) 3.22 L 2.97 L Hgb (12.0 - 16.0 G/DL) 9.0 L 8.3 L Hct (37 - 47 %) 27.0 L 24.9 L MCV (81.0 - 99.0 FL) 83.7 83.8 MCH (27.0 - 31.0 PG) 28.0 28.0 RDW (11.5 - 14.5 %) 13.4 13.2 Plt Count (130 - 400 /CUMM) 234 204 MPV (7.4 - 10.4 FL) 7.4 7.3 L Gran % (42.2 - 75.2 %) 89.2 H 74.1 Lymphocytes % (20.5 - 51.1 %) 8.5 L 15.2 L Monocytes % (1.7 - 9.3 %) 2.2 7.9 Eosinophils % (0 - 5 %) 0 2.5 Basophils % (0.0 - 2.0 %) 0.1 0.3 Absolute Granulocytes (1.4 - 6.5 /CUMM) 7.6 H 5.3 Absolute Lymphocytes (1.2 - 3.4 /CUMM) 0.7 L 1.1 L Absolute Monocytes (0.10 - 0.60 /CUMM) 0.2 0.6 Absolute Eosinophils (0.0 - 0.7 /CUMM) 0 0.2 Absolute Basophils (0.0 - 0.2 /CUMM) 0 0 PUBS MCHC (33.0 - 37.0 G/DL) 33.4 33.5 10/01 10/01 1900 1740 Chemistry Sodium (137 - 145 mmol/L) 143 Potassium (3.5 - 5.1 mmol/L) 4.3 Chloride (98 - 107 mmol/L) 107 Carbon Dioxide (22 - 30 mmol/L) 25 Anion Gap (5 - 16) 10 BUN (7 - 17 mg/dL) 37 H Creatinine (0.5 - 1.0 mg/dL) 0.9 Estimated GFR (>60 ml/min) > 60 BUN/Creatinine Ratio (7 - 25 %) 41.1 H Glucose (65 - 99 mg/dL) 125 H Calcium (8.4 - 10.2 mg/dL) 9.5 Magnesium (1.6 - 2.3 mg/dL) 1.7 Total Bilirubin (0.2 - 1.3 mg/dL) 0.3 AST (14 - 36 U/L) 18 ALT (9 - 52 U/L) 27 Alkaline Phosphatase (<127 U/L) 37 Troponin I (< 0.11 ng/ml) < 0.01 Total Protein (6.3 - 8.2 g/dL) 6.1 L Albumin (3.5 - 5.0 g/dL) 3.4 L Globulin (1.9 - 4.2 gm/dL) 2.7 Albumin/Globulin Ratio (1.1 - 2.2 %) 1.3 Hematology CBC w Diff NO MAN DIFF REQ WBC (4.8 - 10.8 /CUMM) 11.2 H RBC (4.20 - 5.40 /CUMM) 4.07 L Hgb (12.0 - 16.0 G/DL) 11.4 L Hct (37 - 47 %) 33.9 L MCV (81.0 - 99.0 FL) 83.2 MCH (27.0 - 31.0 PG) 28.0 RDW (11.5 - 14.5 %) 13.0 Plt Count (130 - 400 /CUMM) 293 MPV (7.4 - 10.4 FL) 7.2 L Gran % (42.2 - 75.2 %) 84.6 H Lymphocytes % (20.5 - 51.1 %) 8.1 L Monocytes % (1.7 - 9.3 %) 5.4 Eosinophils % (0 - 5 %) 1.7 Basophils % (0.0 - 2.0 %) 0.2 Absolute Granulocytes (1.4 - 6.5 /CUMM) 9.5 H Absolute Lymphocytes (1.2 - 3.4 /CUMM) 0.9 L Absolute Monocytes (0.10 - 0.60 /CUMM) 0.6 Absolute Eosinophils (0.0 - 0.7 /CUMM) 0.2 Absolute Basophils (0.0 - 0.2 /CUMM) 0 PUBS MCHC (33.0 - 37.0 G/DL) 33.6 Urines Urine Color (YEL,AMB,STR) YEL Urine Clarity (CLEAR) CLEAR Urine pH (5.0 - 8.0) 5.5 Ur Specific Norman (1.001 - 1.035) 1.025 Urine Protein (NEG,<30 MG/DL) NEG Urine Ketones (NEG) TRACE H Urine Nitrite (NEG) NEG Urine Bilirubin (NEG) NEG Urine Urobilinogen (0.1 - 1.0 EU/dl) 0.2 Ur Leukocyte Esterase (NEG) NEG Ur Microscopic EXAM NOT REQUIRED Urine Hemoglobin (NEG) NEG Urine Glucose (N MG/DL) NEG Assessment/Plan Assessment/Recommendations: ASSESSMENT: 1. Hematemesis. Given history most likely a Charline Larios Tear. It is likely that EGD will be unrevealing since most Charline Larios Tears can bleed profusely but heal quickly 2. Acute Blood Loss Anemia 3. Meniere's Disease -- patient unable to take diuretics due to renal failure. Ongoing work up in progress. 4. Mitral Regurgitation. RECOMMENDATIONS: 1. NPO after Midnight 2. EGD in a.m. 3. If EGD is unrevealing, then colonoscopy to complete workup 4. Iron Studies (iron, % saturation, ferritin, transferrin, TIBC), B12, and folate Consult Acknowledgment - Thank you for your consult request.
--- NOTE | 2017-10-04 18:44 | Cons- General Surgery ---
General Information and HPI Consulting Request Date of Consult: 10/04/17 Requested By: Pat Gillette MD Reason for Consult: Gallstones Source of Information: patient Exam Limitations: no limitations History of Present Illness: CC: Vomiting HPI: 82-year-old nondiabetic nonsmoker on medications for Mnire's disease often gets dizzy and nauseous and vomits but came to the ER twice this week because of vomiting blood. This happened to her once before in January upper scope was negative. She says she can eat whatever she wants no abdominal pain, somewhat just told her she has gallstones, she was unaware. She denies any chronic narcotic or NSAID use. She feels better now no nausea just finished a full tray of food. According to her there been no fevers no particular darkening of urine (ie iced tea) or lightening / loose stools (jaramillo), no FHx of gallbladder problems. Otherwise no changes bowel habits, weight or appetite. I' ve reviewed the [facility]. No history of GERD, PUD, bleeding problems, heart disease or issues with anesthesia. She does take a baby aspirin. Allergies/Medications Allergies: Coded Allergies: Penicillins (UNKNOWN 06/09/16) PT. STATES SHE WAS TOLD SHE IS ALLERGIC BUT DOES NOT KNOW THE REACTION. Home Med List: Alendronate Sodium 70 MG TABLET 70 MG PO QSUN BONES (Reported) TAKE WITH FULL GLASS OF WATER ON AN EMPTY STOMACH WHILE REMAINING IN AN UPRIGHT POSITION Aspirin (Ecotrin*) 81 MG TABLET.DR 1 TAB PO DAILY TIA (Reported) Reason to Stop at ADM: GI bleeding Atorvastatin Calcium 10 MG TABLET 1 TAB PO DAILY CHOLESTEROL (Reported) Bioflav,Lemon/Vit Bcomp,C (Lipo-Flavonoid Plus Caplet) 200 MG-100 MG TABLET 1 TAB PO DAILY VITAMIN (Reported) Diazepam (Valium) 2 MG TABLET 1 TAB PO BID PRN vertigo Ergocalciferol (Vitamin D2) (Vitamin D2) 50,000 UNIT CAPSULE 1 CAP PO MONTHLY supplement (Reported) Levothyroxine Sodium (Levoxyl) 75 MCG TABLET 1 TAB PO DAILY AC THYROID ( Reported) Losartan Potassium (Cozaar) 50 MG TABLET 1 TAB PO DAILY HTN (Reported) Meclizine HCl 25 MG TABLET 1 TAB PO TIDPRN PRN VERTIGO (Reported) Omeprazole 40 MG CAPSULE.DR 1 CAP PO DAILY GASTRITIS Ondansetron (Zofran Odt) 4 MG TAB.RAPDIS 1 TAB SL TID PRN NAUSEA Current Medications: I reviewed Current Medications Sig/Arun Start time Last Medication Dose Route Stop Time Status Admin Acetaminophen 650 MG Q8 10/02 0600 AC 10/04 PO 1618 Alendronate Sodium 70 MG QSUN 10/02 0700 AC 10/02 PO 0554 Atorvastatin Calcium 10 MG 1700 10/02 1700 AC 10/04 PO 1617 Diazepam 2 MG BID PRN 10/02 0115 AC PO Docusate Sodium 100 MG AT BEDTIME 10/03 2200 AC 10/03 PO 2103 Levothyroxine Sodium 0.075 MG DAILY AC 10/02 0700 AC 10/04 PO 0523 Losartan Potassium 50 MG DAILY 10/02 1000 AC 10/04 PO 0848 Meclizine HCl 25 MG TID 10/02 0200 AC 10/04 PO 1618 Multivitamins 1 TAB DAILY 10/02 1000 AC 10/04 PO 0946 Ondansetron HCl 4 MG BID PRN 10/02 0630 AC PO Pantoprazole Sodium 40 MG DAILY 10/02 1030 AC 10/04 IV 0849 Past History Medical History Blood Transfusion Hx: Yes Neurological: vertigo, TIA 2006 ?MENIERES EENT: allergies, cataracts, epistaxis, sinusitis, L EYE DETACHED RETINA Cardiovascular: hypertension, hyperlipidemia, mitral regurgitation Respiratory: NONE Gastrointestinal: ? 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 Home Who Do You Live With? spouse Services at Home: None Primary Language: Kinyarwanda Smoking Status: Never Smoked ETOH Use: denies use Illicit Drug Use: denies illicit drug use Functional Ability ADLs Independent: dressing, eating, toileting, bathing. Ambulation: independent IADLs Independent: shopping, housework, finances, food prep, telephone, transportation , medication admin. Review of Systems Review of Systems: Constitutional: No fever, sweats or weight loss ENMT: No sore throat Cardiovascular: No chest pain, palpitations or leg swelling Respiratory: No shortness of breath, cough, or sputum or dyspnea on exertion GI: No GERD or bleeding per rectum : No dysuria or hematuria Musculoskeletal: No new muscle weakness, bone or joint pain Skin / Breast: No jaundice, rashes or itching Psychiatric: No history of drug or alcohol abuse no depression or anxiety Hematologic / lymphatic system: As stated above but No problems with excessive bleeding, bruising, or blood clots Exam & Diagnostic Data Vital Signs and I&O I reviewed Vital Signs Date Time Temp Pulse Resp B/P B/P Pulse O2 O2 Flow FiO2 Mean Ox Delivery Rate 10/04 1418 98.2 88 20 132/70 98 Room Air 10/04 0848 80 120/68 10/04 0705 97.9 80 20 120/68 96 Room Air 10/03 2214 98.1 89 20 134/60 97 Room Air I reviewed Intake & Output 10/04 1600 10/04 0800 10/04 0000 10/03 1600 10/03 0800 10/03 0000 Intake Total 1000 480 480 424 786 3873 Output Total 300 250 Balance 1000 480 480 500 -150 1200 Intake, IV 400 Intake, Oral 1000 480 480 800 100 800 Number 1 Bowel Movements Output, Urine 300 250 Physical Exam: Constitutional: pleasant, no acute distress, conversant Eyes: sclera anicteric ENMT: ears and nose atraumatic, moist mucous membranes, good dentition, no lip lesions Neck: Supple, trachea is midline, no cervical or supraclavicular adenopathy and no palpable thyromegaly Cardiovascular: S1, S2, no murmurs, no peripheral edema Respiratory: clear to auscultation with normal respiratory effort and no intercostal retractions GI: abdomen soft, nontender, nondistended, no palpable hepatosplenomegaly Extremities / lymphatics: symmetrically warm, free range of motion no peripheral edema, no cervical, supraclavicular, axillary, or inguinal adenopathy Musculoskeletal: Did not evaluate gait and station, no digital cyanosis, good muscle strength and tone no atrophy, motor grossly 5 out of 5 throughout Skin: no jaundice, no rashes warm, nondiaphoretic, no areas of erythema or induration Psychiatric: mood and affect are appropriate and alert and oriented to person place and time Last 24 Hours of Labs: I reviewed Laboratory Tests 10/04 0740 Chemistry Sodium (137 - 145 mmol/L) 142 Potassium (3.5 - 5.1 mmol/L) 4.1 Chloride (98 - 107 mmol/L) 110 H Carbon Dioxide (22 - 30 mmol/L) 26 Anion Gap (5 - 16) 7 BUN (7 - 17 mg/dL) 20 H Creatinine (0.5 - 1.0 mg/dL) 0.7 Estimated GFR (>60 ml/min) > 60 BUN/Creatinine Ratio (7 - 25 %) 28.6 H Hematology CBC w Diff NO MAN DIFF REQ WBC (4.8 - 10.8 /CUMM) 10.7 RBC (4.20 - 5.40 /CUMM) 3.23 L Hgb (12.0 - 16.0 G/DL) 9.1 L Hct (37 - 47 %) 27.0 L MCV (81.0 - 99.0 FL) 83.7 MCH (27.0 - 31.0 PG) 28.3 RDW (11.5 - 14.5 %) 13.6 Plt Count (130 - 400 /CUMM) 246 MPV (7.4 - 10.4 FL) 7.5 Gran % (42.2 - 75.2 %) 83.6 H Lymphocytes % (20.5 - 51.1 %) 8.5 L Monocytes % (1.7 - 9.3 %) 4.9 Eosinophils % (0 - 5 %) 2.8 Basophils % (0.0 - 2.0 %) 0.2 Absolute Granulocytes (1.4 - 6.5 /CUMM) 8.9 H Absolute Lymphocytes (1.2 - 3.4 /CUMM) 0.9 L Absolute Monocytes (0.10 - 0.60 /CUMM) 0.5 Absolute Eosinophils (0.0 - 0.7 /CUMM) 0.3 Absolute Basophils (0.0 - 0.2 /CUMM) 0 PUBS MCHC (33.0 - 37.0 G/DL) 33.9 Assessment/Plan Assessment/Plan Studies reviewed on PACS myself the ultrasounds from this past December this past January the CT scan of the abdomen this past July, the gallbladder contains something at doesn't look typical of gallstones, there may be gallstones thereto but some of this might be a mass or sludge, on CT there is intrahepatic ductal dilatation. Impression is history exam and labs negative for biliary colic so she may have incidental gallstones but she also has intrahepatic ductal dilatation and an unusual partial filling of the gallbladder along one side. It's not obvious at this could relate to the sporadic hematemesis but she needs more workup. After the EGD consider an MRI of her liver Problem List: 1. Anemia 2. GI bleeding 3. Abnormal gallbladder ultrasound Consult Acknowledgment - Thank you for your consult request.
[2017-10-04 22:18] VITALS: BP 110/62
[2017-10-05 07:28] VITALS: BP 116/60
--- NOTE | 2017-10-05 07:31 | PN- Housestaff ---
Shakila CLAY,Danny 10/05/17 0731: Subjective Follow-up For: Mnire's disease GI bleed Cholelithiasis Subjective: Patient was seen and examined at bedside. She was resting comfortably in no acute events overnight. She continues to complain of positional vertigo, however she is overall feeling better. She currently has no other complaints and denies any nausea, vomiting, hematemesis, melena, bloody stools, chest pain, lightheadedness. Patient could not tolerate MRI due to claustrophobia and therefore exam was limited. Review of Systems Constitutional: Denies: chills, fever. Cardiovascular: Reports: no symptoms. Respiratory: Reports: no symptoms. Gastrointestinal: Reports: no symptoms. Genitourinary: Reports: no symptoms. Musculoskeletal: Reports: no symptoms. Skin: Reports: no symptoms. Objective Last 24 Hrs of Vital Signs/I&O Vital Signs Date Time Temp Pulse Resp B/P B/P Pulse O2 O2 Flow FiO2 Mean Ox Delivery Rate 10/05 0728 97.9 90 20 116/60 96 Room Air 10/04 2218 98.1 90 18 110/62 95 10/04 1418 98.2 88 20 132/70 98 Room Air 10/04 0848 80 120/68 Intake & Output 10/05 0800 10/05 0000 10/04 1600 Intake Total 250 1000 Output Total Balance 250 1000 Intake, IV 10 Intake, Oral 240 1000 Physical Exam General Appearance: Alert, Oriented X3, Cooperative, No Acute Distress Skin Temp/Moisture Exam: Warm/Dry Cardiovascular: Regular Rate, Normal S1, Normal S2, systolic murmur Lungs: Clear to Auscultation, Normal Air Movement Abdomen: Normal Bowel Sounds, Soft, No Tenderness Neurological: Normal Speech, Sensation Intact Extremities: No Clubbing, No Cyanosis, No Edema Current Medications: Current Medications Sig/Arun Start time Last Medication Dose Route Stop Time Status Admin Acetaminophen 650 MG Q8 10/02 0600 AC 10/05 PO 0543 Alendronate Sodium 70 MG QSUN 10/02 07 AC 10/02 PO 0554 Atorvastatin Calcium 10 MG 1700 10/02 1700 AC 10/04 PO 1617 Diazepam 2 MG BID PRN 10/02 0115 AC PO Docusate Sodium 100 MG AT BEDTIME 10/03 2200 AC 10/03 PO 210 Levothyroxine Sodium 0.075 MG DAILY AC 10/02 0700 AC 10/05 PO 0543 Losartan Potassium 50 MG DAILY 10/02 1000 AC 10/04 PO 0848 Meclizine HCl 25 MG TID 10/02 0200 AC 10/04 PO 2043 Multivitamins 1 TAB DAILY 10/02 1000 AC 10/04 PO 0946 Ondansetron HCl 4 MG BID PRN 10/02 0630 AC PO Pantoprazole Sodium 40 MG DAILY 10/02 1030 AC 10/04 IV 0849 Last 24 Hrs of Lab/Manuelito Results Last 24 Hrs of Labs/Mics: Laboratory Tests 10/05/17 0759: CBC w Diff NO MAN DIFF REQ, RBC 3.41 L, MCV 83.8, MCH 28.5, RDW 13.6, MPV 7.4, Gran % 77.4 H, Lymphocytes % 12.0 L, Monocytes % 5.5, Eosinophils % 4.9, Basophils % 0.2, Absolute Granulocytes 7.0 H, Absolute Lymphocytes 1.1 L, Absolute Monocytes 0.5, Absolute Eosinophils 0.4, Absolute Basophils 0, PUBS MCHC 34.0 Orders Radiology Findings: Abdomen pelvis MRI showed dilated extrahepatic biliary tree, no significant change in caliber since July, distended gallbladder with cholelithiasis, diverticulum of the duodenum, no definitive choledocholithiasis exam was limited. 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 CT head and MRI have have ruled out acute stroke or evidence of intracranial mass. ENT was consulted but refuse to see patient and recommended to continue current management referral as an outpatient. -Continue with meclizine and diazepam -PT has cleared patient to go home once medically stable -Patient to see ENT after discharge #GI bleed Patient has history of GI bleed secondary to PUD and reported one episode of nausea and hematemesis on 10/01/17. She has not had any repeat episodes of nausea nausea or vomiting. She has not noted any dark or bloody stools. Orthostatic vitals were negative. H/H has remained stable but is decreased from baseline. EGD showed gastric ulcer and erosions with no definitive source of bleeding. -Patient to go for colonoscopy tomorrow, will be prepped overnight. -Continue with PPI #cholelithiasis MRI was limited due to patient not tolerating MRCP, no definitive choledocholithiasis seen. #DVT prophylaxis -ALPS, holding pharmacologic DVT prophylaxis in light of potential GI bleed #CODE STATUS Full code Problem List: 1. Abnormal gallbladder ultrasound 2. Anemia 3. Meniere disease Pain Ratin Pain Location: none Pain Goal: Remain pain free Pain Plan: pain pathway Tomorrow's Labs & Rationales: melina Gillette MD,Pat 10/05/17 1252: Attending MD Review Statement Attending Statement Attending MD Statement: examined this patient, discuss w/resident/PA/COLLECTION SYSTEMS TECHNICIAN, agreed w/resident/PA/COLLECTION SYSTEMS TECHNICIAN, discussed with family, reviewed EMR data (avail), discussed with nursing, discussed with case mgmt, amended to note Attending Assessment/Plan: Patient seen and examined. Resting comfortably not in any acute distress. She admits that her dizziness is still present but states that it is improved compared to presentation. She was seen by the physical therapy service and expected to follow-up again with her today. She denies any nausea vomiting since admission. Denies any abdominal pain. On examination she has no right upper quadrant tenderness. Consultation by the general surgery service appreciated. An MRI was recommended to further evaluate densitis noted within the gallbladder. Patient is also scheduled to undergo EGD today to rule out upper GI bleeding. Her H&H has been stable during this admission. Recommendations: -Follow-up results of EGD and recommendations from the GI service. Patient will be discharged on PPI therapy. -Follow-up results of the MRI to further evaluate the densities noted within the gallbladder. -Continue meclizine and Valium for her Mnire's disease
[2017-10-05 09:17] LABS: ABSOLUTE BASOPHIL COUNT 0 /CUMM (0.0-0.2); ABSOLUTE EOSINOPHIL COUNT 0.4 /CUMM (0.0-0.7); ABSOLUTE LYMPH COUNT 1.1 /CUMM (1.2-3.4); ABSOLUTE MONOCYTE COUNT 0.5 /CUMM (0.10-0.60); BASOPHIL % 0.2 % (0.0-2.0); EOSINOPHIL % 4.9 % (0-5); GRANULOCYTE % 77.4 % (42.2-75.2); HEMATOCRIT 28.6 % (37-47); MEAN CORPUSCULAR HGB 28.5 PG (27.0-31.0); MEAN CORPUSCULAR VOLUME 83.8 FL (81.0-99.0); MEAN PLATELET VOLUME 7.4 FL (7.4-10.4); PLATELET COUNT 278 /CUMM (130-400); RBC DISTRIBUTION WIDTH 13.6 % (11.5-14.5); RED BLOOD CELL CT 3.41 /CUMM (4.20-5.40); WHITE BLOOD CELL COUNT 9.1 /CUMM (4.8-10.8)
--- NOTE | 2017-10-05 13:49 | Proc Note Endoscopy ---
See Addendum Endoscopy Procedure Medical History: unchanged Mental Status: alert/oriented Heart/Lung Eval Prior to Sedation: within normal limits Candidate for Sedation? Yes Procedure Date: 10/05/17 Procedure Type: EGD w/biopsy Director Drug Safety: MD Florez Deborah E. ASA Classification: III Indications: 1. Upper GI bleed 2. Acute Blood Loss Anemia Instrument: diagnostic gastroscope Meds Received: MAC Patient's Tolerance: good Complications: none Extent Reached: second part of duodenum Procedure: Note: Informed consent was obtained prior to procedure. Risks and benefits of procedure were discussed with patient. Potential complications discussed included perforation, bleeding, abdominal pain, and adverse reaction to medications. It was explained that iany or all of these complications could result in the need for extended hospitalization, emergency surgery, transfusion of packed red blood cells (with the risk of HIV or hepatitis virus), intubation with mechanical ventilation, and possible need for antibiotics. It was further explained that an existing tumor polyp or mucosal abnormality might not be identified at the time of the procedure thus resulting in a missed opportunity for early diagnosis and treatment of a gastrointestinal malignancy or disease with possible interval development of a gastrointestinal cancer or other disease with possible worsening of clinical condition in the interval between endoscopies. It was also discussed that complications are not limited to those listed above. Possible alternatives to endoscopic treatment or evaluation were discussed. All questions were answered. Continuous EKG and blood pressure monitors were attached. Supplemental oxygen was provided with O2 Sat monitoring. Patient was placed in the left lateral decubitus position. A surgical timeout was performed. All persons in the room were identified. All concerns were expressed and answered. A bite block was placed in the mouth and sedation was administered by anesthesia and titrated to comfort prior to starting the procedure. The Olympus upper endoscope was advanced under direct vision to the level of the third portion of the duodenum. Esophagus: The esophagus had a normal mucosal vascular pattern throughout its entirety. The GE junction was identified and was normal. 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 The esophagus had a corkscrew pattern. The GE junction was nondisplaced. It was normal. There was no Charline-Larios tear visualized. Stomach: The stomach had a normal mucosal and vascular pattern throughout its entirety with several exceptions. There was a 6 mm clean-based ulcer along the lesser curvature. It was shallow. Biopsies were obtained from this. It was now felt to be responsible for present episode of acute blood loss. There were also scattered small linear erosions with surrounding erythema in the antrum and prepyloric region. There are no stigmata of bleeding. Retroflexed view of the cardiofundic region revealed a normal mucosal and vascular pattern. There were normal rugae and normal distensibility. The pylorus was patent and easily intubated. Biopsies were obtained from the antrum, angularis, gastric body and lesser curvature to rule out H. Pylori. Duodenum: The duodenum was fully examined from bulb down to the third portion. There was a normal mucosal vascular pattern throughout. Biopsies were obtained from D1, D2 and the duodenal bulb to rule out celiac disease given anemia. Over 6 separate bites were obtained. With the endoscope in the forward-viewing position, it was slowly withdrawn and all areas were re-inspected and findings are as described previously. Patient tolerated the procedure well. EBL: Minimal Specimens Removed: 1. D1, D2 and the duodenal bulb to rule out celiac disease given anemia 2. antrum, angularis, gastric body and lesser curvature to rule out H. Pylori 3. Gastric ulcer, lesser curvature Findings: 1. Clean-based gastric ulcer lesser curvature 2. Scattered small, linear, gastric erosions antrum and prepyloric region 3. Presbyesophagus Impression: 1. Clean-based gastric ulcer lesser curvature 2. Scattered small, linear, gastric erosions antrum and prepyloric region 3. Presbyesophagus It is my impression that none of the above findings account for patient's significant GI blood loss. This is been discussed with the patient and her family. Recommendations: 1. Patient to remain on clear liquid diet 2. At 5 PM patient to receive 2 L of GoLYTELY to be drunk quickly one large 8- 10 ounce glass every 15 minutes 3. Patient to receive 2 Dulcolax at at bedtime 4. At 5 AM morning patient to receive 2 L of GoLYTELY and then to be nothing by mouth afterwards for colonoscopy to complete workup CC: Marie CLAY,Faizan Berger
[2017-10-05 14:59] VITALS: BP 124/60
--- NOTE | 2017-10-05 16:06 | MRI REPORT ---
EXAMINATION: MRI ABDOMEN WITHOUT AND WITH CONTRAST CLINICAL INFORMATION: Intrahepatic biliary obstruction on previous CT. Hematemesis. The report of CT 07/18/2017 indicates biliary ductal dilation. Cholelithiasis. Suspect common duct stones. COMPARISON: Selected portions of CT 07/18/2017. TECHNIQUE: Anatomic and fluid sensitive sequences were used to examine the abdomen. The patient declined additional sequences. MRCP sequences were not performed prior to the patient discontinuing the exam. FINDINGS: LIVER: The right level liver measures 12.9 cm which is within normal limits. The liver contour is smooth. The background hepatic signal is homogeneous. No suspicious focal liver lesion. The liver was examined without IV contrast. BILIARY TRACT: The gallbladder is distended. There is cholelithiasis. There is some dependent biliary sludge. There is no gallbladder wall thickening. There is no localized pericholecystic fluid. There is mild prominence of the central intrahepatic bile ducts and there is dilation of the common duct. The common duct measures 1.4 cm. The duct is dilated to almost the level of the ampulla. In the parasagittal plane the common duct appears to taper at the ampulla. There is no convincing duct calculus. The patient was unable to tolerate the MRCP sequence. On some images there is a suggestion of some signal abnormality at the distal duct (series 6-2, image 17). The caliber of the common duct is unchanged since at least 07/18/2017. SPLEEN: No suspicious abnormality. PANCREAS: There is a signal abnormality in or near the pancreatic head. On fluid sensitive sequences this is hyperintense. This may correspond to a duodenal diverticulum demonstrated on CT. The pancreas is somewhat atrophic. There is mild pancreatic ductal dilation. There are scattered tiny fluid signal areas throughout the pancreas including the tail. These are nonspecific. ADRENAL GLANDS: No definite mass on the sequences available. KIDNEYS: There are at least 2 left renal cysts. No suspicious renal mass GASTROINTESTINAL TRACT: As described there is likely a diverticulum involving the second portion of the duodenum. ABDOMINAL WALL: Midline subxiphoid fat-containing epigastric hernia. LYMPHOVASCULAR STRUCTURES AND FLUID: No abdominal aortic aneurysm demonstrated. MUSCULOSKELETAL: There is some degenerative change in the spine. VISUALIZED LOWER CHEST: No suspicious abnormality. IMPRESSION: Dilated extrahepatic biliary tree measuring up to 1.4 cm. The patient was unable to tolerate MRCP. This limits assessment. There is no significant change in caliber since 07/18/17. There is distended gallbladder. There is cholelithiasis. I suspect a diverticulum of the second portion of the duodenum. On the images available I cannot make a definite diagnosis of choledocholithiasis.
[2017-10-05 22:26] VITALS: BP 106/60
[2017-10-06 05:51] VITALS: BP 100/60
--- NOTE | 2017-10-06 06:43 | PN- Housestaff ---
Shakila CLAY,Danny 10/06/17 0641: Subjective Follow-up For: Mnire's disease GI bleed Cholelithiasis Subjective: Patient was seen and examined at bedside. She was resting comfortably in a chair. She had diarrhea overnight due to colonoscopy bowel prep. She states that overall her recurrent episodes of dizziness are improving. She currently has no other complaints denies any nausea, vomiting, fever, chills, chest pain, shortness of breath Review of Systems Constitutional: Denies: chills, fever. Cardiovascular: Denies: chest pain, palpitations. Respiratory: Denies: cough, short of breath. Gastrointestinal: Reports: diarrhea. Denies: nausea, bloody stool, vomiting. Genitourinary: Reports: no symptoms. Objective Last 24 Hrs of Vital Signs/I&O Vital Signs Date Time Temp Pulse Resp B/P B/P Pulse O2 O2 Flow FiO2 Mean Ox Delivery Rate 10/06 0551 98.1 99 20 100/60 96 Room Air 10/05 2226 97.9 92 20 106/60 97 Room Air 10/05 1459 97.2 84 18 124/60 96 Room Air 10/05 0728 97.9 90 20 116/60 96 Room Air Intake & Output 10/06 0800 10/06 0000 10/05 1600 Intake Total 800 240 Output Total Balance 800 240 Intake, IV 0 Intake, Oral 800 240 Number 4 3 0 Bowel Movements Physical Exam General Appearance: Alert, Oriented X3, Cooperative, No Acute Distress Skin Temp/Moisture Exam: Warm/Dry Cardiovascular: Regular Rate, Normal S1, Normal S2, systolic murmur Lungs: Clear to Auscultation, Normal Air Movement Abdomen: Soft, No Tenderness, hyperactive bowel sounds Neurological: Normal Speech, Sensation Intact Extremities: No Clubbing, No Cyanosis, No Edema Current Medications: Current Medications Sig/Arun Start time Last Medication Dose Route Stop Time Status Admin Acetaminophen 650 MG Q8 10/02 0600 AC 10/06 PO 0510 Alendronate Sodium 70 MG QSUN 10/02 0700 AC 10/02 PO 0554 Atorvastatin Calcium 10 MG 1700 10/02 1700 AC 10/05 PO 1632 Bisacodyl 10 MG AT BEDTIME 10/05 2200 AC 10/05 PO 2014 Chlorhexidine 1 GM .STK-MED ONE 10/05 1358 DC Gluconate TOP 10/05 1359 Diazepam 2 MG BID PRN 10/02 0115 AC PO Docusate Sodium 100 MG AT BEDTIME 10/03 2200 DC 10/03 PO 2103 Levothyroxine Sodium 0.075 MG DAILY AC 10/02 0700 AC 10/06 PO 0510 Losartan Potassium 50 MG DAILY 10/02 1000 AC 10/05 PO 0855 Meclizine HCl 25 MG TID 10/02 0200 AC 10/05 PO 2016 Multivitamins 1 TAB DAILY 10/02 1000 AC 10/05 PO 0849 Ondansetron HCl 4 MG BID PRN 10/02 0630 AC PO Pantoprazole Sodium 40 MG DAILY 10/02 1030 AC 10/05 IV 0849 Polyethylene Glycol 1 GAL 0500,1700 10/05 1700 DC 10/06 PO 10/06 0501 0511 Last 24 Hrs of Lab/Manuelito Results Last 24 Hrs of Labs/Mics: Laboratory Tests 10/06/17 0940: CBC w Diff NO MAN DIFF REQ, RBC 3.43 L, MCV 84.6, MCH 28.8, RDW 13.7, MPV 7.3 L, Gran % 81.4 H, Lymphocytes % 9.7 L, Monocytes % 5.7, Eosinophils % 3.0, Basophils % 0.2, Absolute Granulocytes 6.6 H, Absolute Lymphocytes 0.8 L, Absolute Monocytes 0.5, Absolute Eosinophils 0.2, Absolute Basophils 0, PUBS MCHC 34.0 Assessment/Plan Assessment: Patient is an 82-year-old female with a PMH significant for TIA, Mnire's disease, HTN, HLD, 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 CT head and MRI have have ruled out acute stroke or evidence of intracranial mass. ENT was consulted but refuse to see patient and recommended to continue current management referral as an outpatient. -Continue with meclizine and diazepam -PT has cleared patient to go home once medically stable -Patient to see ENT after discharge #GI bleed with anemia Patient tolerated colonoscopy well, it showed diverticulosis with no active bleeding. -If stable overnight patient will be discharged home -Converted to oral PPI -Begin iron supplementation -patient will follow up with GI as an outpatient #cholelithiasis MRI was limited due to patient not tolerating MRCP, no definitive choledocholithiasis seen. -After discussion with Dr. Forrester, this likely not need further follow-up unless patient becomes symptomatic. #DVT prophylaxis -ALPS, holding pharmacologic DVT prophylaxis in light of potential GI bleed #CODE STATUS Full code Problem List: 1. Meniere disease 2. Anemia 3. Abnormal gallbladder ultrasound Pain Ratin Pain Location: none Pain Goal: Remain pain free Pain Plan: pain pathway Tomorrow's Labs & Rationales: Pat Sharpe MD 10/06/17 1227: Attending MD Review Statement Attending Statement Attending MD Statement: examined this patient, discuss w/resident/PA/EMOTIONAL SUPPORT TEACHER, agreed w/resident/PA/EMOTIONAL SUPPORT TEACHER, reviewed EMR data (avail), discussed with nursing, discussed with case mgmt, amended to note Attending Assessment/Plan: Patient remains extremely pleasant this morning. No new complaints. Denies nausea vomiting. Denies abdominal pain. She reports that her dizziness has improved. MRCP was attempted yesterday but could not be completed as patient was claustrophobic. Results are suboptimal and showed cholelithiasis. Choledocholithiasis cannot be ruled out. On examination she has no right upper quadrant tenderness. EGD was done yesterday and showed clean based gastric ulcers and small gastric erosions in the antrum and prepyloric region. She also has presbyesophagus. Recommendations: Due to the significant drop of her hemoglobin level-and lack of a clear source of bleeding she was prepped yesterday to undergo colonoscopy today. -Please follow-up with the general surgery service regarding MRI findings and further recommendations. - If she remains clinically stable overnight with no further interventions planned she may be discharged home tomorrow. -Her blood pressure has been borderline. Her oral intake was reduced over the past few days in preparation for her procedures. She also had diarrhea overnight due to her bowel prep. Recommend holding her losartan and hydration with intravenous fluids with close monitoring for improvement of her blood pressure
--- NOTE | 2017-10-06 07:12 | Patient Discharge Instructions ---
Discharge Instructions General Discharge Information You were seen/treated for: GI bleed Mnire's disease Special Instructions: Please follow up with your primary care physician within 1 week of discharge. Please follow up with your ENT physician within 1 week of discharge. Please follow up with Dr. Florez for continuing GI care within 2 weeks of discharge. Please follow up with Dr. Forrester for conitnuing care of your gallstones. Call to make a sooner appointment if you have severe abdominal pain. Call your doctor or return to the ER if you have any repeat episodes of bloody vomiting, or any bloody stool, dark and tarry stool, lightheadedness, loss of consciousness, chest pain or shortness of breath. Diet Recommended Diet: High fiber Acute Coronary Syndrome Inclusion Criteria At DC or during hospital stay patient has or had the following: ACS DIAGNOSIS No Discharge Core Measures Meds if any: Prescribed or Continued at Discharge Meds if any: NOT Prescribed or Continued at Discharge Congestive Heart Failure Inclusion Criteria At DC or during hospital stay patient has or had the following: CHF DIAGNOSIS No Discharge Core Measures Meds if any: Prescribed or Continued at Discharge Meds if any: NOT Prescribed or Continued at Discharge Cerebrovascular accident Inclusion Criteria At DC or during hospital stay patient has or had the following: CVA/TIA Diagnosis No Discharge Core Measures Meds if any: Prescribed or Continued at Discharge Meds if any: NOT Prescribed or Continued at Discharge Venous thromboembolism Inclusion Criteria VTE Diagnosis No VTE Type NONE VTE Confirmed by (Test) NONE Discharge Core Measures - Per Current guidelines, there needs to be overlap - treatment for the first 5 days of Warfarin therapy. - If discharged on Warfarin prior to 5 days of - overlap therapy, the patient will need to be - assessed for post discharge needs including - *Post discharge parental anticoagulation - *Warfarin and/or parental anticoagulation education - *Follow up date to check INR post discharge At least 5 days overlap therapy as Inpatient No Meds if any: Prescribed or Continued at Discharge Note: Overlap Therapy is Warfarin and Anticoagulant Meds if any: NOT Prescribed or Continued at Discharge
[2017-10-06 11:50] LABS: ABSOLUTE BASOPHIL COUNT 0 /CUMM (0.0-0.2); ABSOLUTE EOSINOPHIL COUNT 0.2 /CUMM (0.0-0.7); ABSOLUTE GRANULOCYTE CT 6.6 /CUMM (1.4-6.5); ABSOLUTE LYMPH COUNT 0.8 /CUMM (1.2-3.4); ABSOLUTE MONOCYTE COUNT 0.5 /CUMM (0.10-0.60); BASOPHIL % 0.2 % (0.0-2.0); GRANULOCYTE % 81.4 % (42.2-75.2); MEAN CORPUSCULAR HGB 28.8 PG (27.0-31.0); MEAN CORPUSCULAR VOLUME 84.6 FL (81.0-99.0); MEAN PLATELET VOLUME 7.3 FL (7.4-10.4); PLATELET COUNT 305 /CUMM (130-400); RBC DISTRIBUTION WIDTH 13.7 % (11.5-14.5); RED BLOOD CELL CT 3.43 /CUMM (4.20-5.40); WHITE BLOOD CELL COUNT 8.1 /CUMM (4.8-10.8)
--- NOTE | 2017-10-06 12:58 | Proc Note Colonoscopy ---
Colonoscopy Procedure Medical History: unchanged Mental Status: alert/oriented Heart/Lung Eval Prior to Sedation: within normal limits Candidate for Sedation? Yes Procedure Date: 10/06/17 Procedure Type: colonoscopy Ground Crew Linesman: Tenzin Dubose M.D. ASA Classification: III Indications: GI bleed Blood loss anemia Instrument (Colonoscope): single-channel/pediatric colonoscopes Meds Received: MAC Patient's Tolerance: good Complications: none Extent Reached: terminal ileum Prep: good Procedure: The patient signed informed consent, was placed in the Santana position, and medicated. Examination of the rectum revealed external hemorrhoids. The Olympus high-definition variable stiffness pediatric colonoscope was inserted through the anus and advanced to the sigmoid; it was then exchanged for a high- definition variable stiffness adult colonoscope, which was inserted to the terminal ileum.. Retroflexion was performed in order to examine the rectum. Careful examination was performed. There was adequate withdrawal time. Findings: The rectum was normal. There was extensive sigmoid diverticulosis, with fixed angulation, tortuosity, and narrowing of the lumen. Diverticula were also seen extending from left colon to right colon. There were no polyps, no colitis, and no evident vascular lesions (such as angiodysplasias). The cecum was normal. Terminal ileum was normal. Impression: * Diverticulosis Recommendations: * Begin high-fiber diet * Await pathology from EGD * PPI therapy (oral) * Iron supplementation * Avoid aspirin/NSAIDs * Maintain hemoglobin greater than 8 * Please call GI during this hospitalization with any further issues or questions. We will not follow her in hospital at this point * Outpatient follow-up with Dr. Florez CC: Marie CLAY,Faizan Berger; Vikki CLAY,Ayesha
[2017-10-06 14:11] VITALS: BP 152/70
[2017-10-06 22:57] VITALS: BP 120/70
--- NOTE | 2017-10-07 07:25 | PN- Housestaff ---
Shakila CLAY,Danny 10/07/17 0724: Subjective Follow-up For: Mnire's disease GI bleed Cholelithiasis Subjective: Patient was seen and examined at bedside. She was resting comfortably. She is having r sided tinnitis and feeling her usaual prodrome for vertigo, and has associated nausea. She currently has no other complaints and denies any vomiting, fever, chills, chest pain, or shortness of breath. Review of Systems Constitutional: Denies: chills, fever. Cardiovascular: Denies: chest pain, palpitations. Respiratory: Denies: cough, short of breath. Gastrointestinal: Reports: nausea. Denies: diarrhea, bloody stool, vomiting. Genitourinary: Reports: no symptoms. Musculoskeletal: Reports: no symptoms. Neurological/Psychological: Reports: see HPI. Objective Last 24 Hrs of Vital Signs/I&O Vital Signs Date Time Temp Pulse Resp B/P B/P Pulse O2 O2 Flow FiO2 Mean Ox Delivery Rate 10/06 2257 98.5 81 19 120/70 96 Room Air 10/06 1411 97.7 81 18 152/70 97 Intake & Output 10/07 0800 10/07 0000 10/06 1600 Intake Total 660 830 550 Output Total Balance 660 830 550 Intake, IV 300 350 450 Intake, Oral 360 480 100 Number 5 Bowel Movements Patient 132 lb Weight Physical Exam General Appearance: Alert, Oriented X3, Cooperative, No Acute Distress Skin Temp/Moisture Exam: Warm/Dry Cardiovascular: Regular Rate, Normal S1, Normal S2, systolic murmur Lungs: Clear to Auscultation, Normal Air Movement Abdomen: Normal Bowel Sounds, Soft, No Tenderness Neurological: Normal Speech, Sensation Intact Current Medications: Current Medications Sig/Arun Start time Last Medication Dose Route Stop Time Status Admin Acetaminophen 650 MG Q8 10/02 0600 AC 10/07 PO 0618 Alendronate Sodium 70 MG QSUN 10/02 0700 AC 10/02 PO 0554 Atorvastatin Calcium 10 MG 1700 10/02 1700 AC 10/06 PO 1648 Bisacodyl 10 MG AT BEDTIME 10/05 2200 DC 10/05 PO 2014 Chlorhexidine 1 GM .STK-MED ONE 10/06 1322 DC Gluconate TOP 10/06 1323 Dextrose/Sodium 1,000 ML Q20H 10/06 1200 DC 10/06 Chloride IV 1401 Diazepam 2 MG BID PRN 10/02 0115 AC PO Docusate Sodium 100 MG AT BEDTIME 10/06 2200 AC 10/06 PO 2121 Ferrous Sulfate 325 MG DAILY 10/06 1732 AC 10/06 PO 2018 Levothyroxine Sodium 0.075 MG DAILY AC 10/02 0700 AC 10/07 PO 18 Losartan Potassium 50 MG DAILY 10/02 1000 DC 10/06 PO 0918 Meclizine HCl 25 MG TID 10/02 0200 AC 10/06 PO 2121 Multivitamins 1 TAB DAILY 10/02 1000 AC 10/05 PO 0849 Omeprazole 40 MG DAILY AC 10/07 0700 AC 10/07 PO 0618 Ondansetron HCl 4 MG BID PRN 10/02 0630 AC 10/07 PO 18 Pantoprazole Sodium 40 MG DAILY 10/02 1030 DC 10/06 IV 0918 Last 24 Hrs of Lab/Manuel[place] Results Last 24 Hrs of Labs/Mics: Laboratory Tests 10/07/17 0759: CBC w Diff NO MAN DIFF REQ, RBC 3.29 L, MCV 84.7, MCH 28.8, RDW 14.1, MPV 7.4, Gran % 84.8 H, Lymphocytes % 7.5 L, Monocytes % 5.3, Eosinophils % 2.4, Basophils % 0, Absolute Granulocytes 8.6 H, Absolute Lymphocytes 0.8 L, Absolute Monocytes 0.5, Absolute Eosinophils 0.2, Absolute Basophils 0, PUBS MCHC 34.0 Assessment/Plan Assessment: Patient is an 82-year-old female with a PMH significant for TIA, Mnire's disease, HTN, HLD, 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 CT head and MRI have have ruled out acute stroke or evidence of intracranial mass. ENT was consulted but refuse to see patient and recommended to continue current management referral as an outpatient. -Continue with meclizine and diazepam - given diazepam for today's episode -PT has cleared patient to go home once medically stable -Patient to see ENT after discharge #GI bleed with anemia Patient tolerated colonoscopy well, it showed diverticulosis with no active bleeding. - Patient is medically cleared for discharge -Converted to oral PPI -patient will follow up with GI as an outpatient #cholelithiasis MRI was limited due to patient not tolerating MRCP, no definitive choledocholithiasis seen. -After discussion with Dr. Forrester, this likely not need further follow-up unless patient becomes symptomatic. #DVT prophylaxis -ALPS, holding pharmacologic DVT prophylaxis in light of potential GI bleed #CODE STATUS Full code Problem List: 1. Cholelithiasis 2. GI bleed 3. Meniere disease Pain Ratin Pain Location: none Pain Goal: Remain pain free Pain Plan: pain pathway Tomorrow's Labs & Rationales: none Leta CLAY,Jamesmanuelaedison 10/07/17 1214: Attending MD Review Statement Attending Statement Attending MD Statement: examined this patient, discuss w/resident/PA/[employer], agreed w/resident/PA/[employer]GER, discussed with family, reviewed EMR data (avail), discussed with nursing, discussed with case mgmt, amended to note Attending Assessment/Plan: Patient seen and examined. Resting comfortably not in acute distress. Complaining of some nausea earlier this morning and dizziness when moving her head. She feels that she may have an episode of her Mnire's flare up coming on. She is hemodynamically stable. Hemoglobin level is stable this morning. Colonoscopy done yesterday showed diverticulosis with no evidence of bleeding. On examination she has no neurological deficits. Recommendations: - Patient is medically stable to be discharged home today. -She is to continue on her meclizine and Valium. She has been receiving meclizine [id number] care. Recommend that she receive a dose of Valium for her current symptoms. She has been encouraged to take a Valium at home if her symptoms are not controlled at home controlled with meclizine unknown. She is to follow-up with her ENT service as an outpatient. -Case was discussed with the general surgery service. She'll be following up with Dr. Bueno as an outpatient for further workup as indicated.
[2017-10-07 07:39] VITALS: BP 130/70
--- NOTE | 2017-10-07 08:28 | ECHOCARDIOGRAM REPORT ---
NELSON NOVOA Age: 82 : 1935 Gender: F Exam Date: 10/06/2017 19:32 Exam Location: [address] [place] [address] Ht (in): 62 Wt (lb): 131 BSA: 1.62 BP: 152 / 70 Ordering Physician: Asuncion Myers MD Referring Physician: Asuncion Myers MD Technologist: Marita Oneil [facility] [place] Room Number: [id number] Indications: HYPOTENSION Rhythm: Technical Quality: FINDINGS Left Ventricle Normal size left ventricle. No obvious regional wall motion abnormalities. Normal left ventricular ejection fraction estimated at 65-70%. Abnormal left ventricular diastolic filling pattern for age. Right Ventricle Right ventricle not well visualized, grossly normal. Right Atrium Normal right atrial size. Left Atrium Left atrial size at the upper limits of normal. Mitral Valve Moderate thickening/calcification of the anterior mitral valve leaflet. Mild mitral annular calcification. Trace mitral regurgitation. Aortic Valve Trileaflet aortic valve. Diffuse thickening of the aortic valve cusps with reduced excursion. Mild aortic stenosis. Mild aortic regurgitation. Tricuspid Valve Tricuspid valve not well visualized, grossly normal. Mild-to- moderate tricuspid regurgitation. Pulmonic Valve Structurally normal pulmonic valve. Trace to mild pulmonic regurgitation. Pericardium Small pericardial effusion. Great Vessels Normal size aortic root and proximal ascending aorta. CONCLUSIONS 1. This was a technically difficult study 2. Fibrocalcific changes are present in a trileaflet aortic valve. There is evidence of mild valvular stenosis with a peak gradient of 27 mmHg, a mean gradient of 17 mmHg, and an estimated valve area of 1.8 cm. Mild aortic insufficiency is also present. 3. Moderate thickening and calcification of the mitral leaflets is present with mild to moderate annular calcification and minimal mitral insufficiency. 4. A very small pericardial effusion is present which is hemodynamically insignificant. 5. The left ventricular chamber size and systolic function appear normal. There are no obvious resting wall motion abnormalities. 6. Mild to moderate tricuspid insufficiency is present with minimal to mild pulmonic insufficiency and no evidence of significant pulmonary hypertension. 7. Lipomatous atrial septal hypertrophy is present 8. No prior study was available for comparison. Celine Flanagan M.D. (Electronically Signed) Final Date: 07 October 2017 08:28 MEASUREMENTS (Male / Female) Normal Values 2D ECHO LV Diastolic Diameter PLAX 3.5 cm 4.2 - 5.9 / 3.9 - 5.3 cm LV Systolic Diameter PLAX 1.7 cm 2.1 - 4.0 cm LV Fractional Shortening PLAX 51.4 % 25 - 46 % LV Ejection Fraction 2D Teich 83.5 % IVS Diastolic Thickness 1.2 cm LVPW Diastolic Thickness 1.1 cm LV Relative Wall Thickness 0.7 RV Internal Dim ED PLAX 2.8 cm 1.9 - 3.8 cm LVOT Diameter 2.2 cm Aortic Root Diameter 3.5 cm LA Systolic Diameter LX 3.5 cm 3.0 - 4.0 / 2.7 - 3.8 cm LA Volume 30.0 cm 18 - 58 / 22 - 52 cm Ascending Aorta Diameter 3.0 cm DOPPLER AV Peak Velocity 258.0 cm/s AV Peak Gradient 26.6 mmHg AV Mean Velocity 192.0 cm/s AV Mean Gradient 17.0 mmHg AV Velocity Time Integral 61.7 cm LVOT Peak Velocity 123.0 cm/s LVOT Peak Gradient 6.1 mmHg LVOT Mean Velocity 78.7 cm/s LVOT Mean Gradient 3.0 mmHg LVOT Velocity Time Integral 28.3 cm LVOT Stroke Volume 107.6 cm AV Area Cont Eq vti 1.7 cm AV Area Cont Eq pk 1.8 cm MV Peak Velocity 129.0 cm/s MV Peak Gradient 6.7 mmHg MV Mean Velocity 61.1 cm/s MV Mean Gradient 2.0 mmHg Mitral E Point Velocity 77.7 cm/s Mitral A Point Velocity 126.0 cm/s Mitral E to A Ratio 0.6 MV PHT Velocity 80.5 cm/s MV Deceleration [place] 301.0 cm/s MV Pressure Half Time 80.2 ms MV Area PHT 2.7 cm MV Deceleration Time 209.0 ms TR Peak Velocity 265.0 cm/s TR Peak Gradient 28.1 mmHg Right Atrial Pressure 5.0 mmHg Pulmonary Artery Systolic Pressu 33.1 mmHg Right Ventricular Systolic Press 33.1 mmHg PV Peak Velocity 77.5 cm/s PV Peak Gradient 2.4 mmHg PV Mean Velocity 54.1 cm/s PV Mean Gradient 1.0 mmHg PV Velocity Time Integral 14.2 cm LV E' Lateral Velocity 4.2 cm/s Mitral E to LV E' Lateral Ratio 18.6 LV E' Septal Velocity 4.5 cm/s Mitral E to LV E' Septal Ratio 17.3
[2017-10-07 09:27] LABS: ABSOLUTE BASOPHIL COUNT 0 /CUMM (0.0-0.2); ABSOLUTE EOSINOPHIL COUNT 0.2 /CUMM (0.0-0.7); ABSOLUTE GRANULOCYTE CT 8.6 /CUMM (1.4-6.5); ABSOLUTE LYMPH COUNT 0.8 /CUMM (1.2-3.4); ABSOLUTE MONOCYTE COUNT 0.5 /CUMM (0.10-0.60); BASOPHIL % 0 % (0.0-2.0); EOSINOPHIL % 2.4 % (0-5); HEMATOCRIT 27.9 % (37-47); MEAN CORPUSCULAR HGB 28.8 PG (27.0-31.0); MEAN CORPUSCULAR VOLUME 84.7 FL (81.0-99.0); MEAN PLATELET VOLUME 7.4 FL (7.4-10.4); RBC DISTRIBUTION WIDTH 14.1 % (11.5-14.5); RED BLOOD CELL CT 3.29 /CUMM (4.20-5.40); WHITE BLOOD CELL COUNT 10.2 /CUMM (4.8-10.8)
[2017-10-07 10:09] LABS: GRANULOCYTE % 84.8 % (42.2-75.2); PLATELET COUNT 308 /CUMM (130-400)
[2017-10-07] MEDS ORDERED: ZOFRAN ODT4 M1 SL (12:05)
[2017-10-07] MEDS ORDERED: OMEPRAZOLE40 M1 PO (12:05)
--- NOTE | 2017-10-09 18:17 | Discharge Summary ---
Visit Information Visit Dates Admission Date: 10/01/17 Discharge Date: 10/07/17 Hospital Course Course Attending Physician: Pat Gillette MD Primary Care Physician: Marie CLAY,Faizan Berger Hospital Course: Patient is an 82-year-old female with a PMH significant for Mnire's disease, TIA, HTN, HLD, mitral regurgitation, GI bleed, hypothyroidism, and OA who presented to the [facility] ED complaining of dizziness, nausea, and lightheadedness with increasing frequency. She had presented to the ED 2 days prior to admission with these complaints, was given a valium which helped her symptoms and discharged. She endorses URI symptoms one week prior to admission which was treated with Augmentin. In the ED patient had an episode of coffee ground emesis. VS on admission: T 96.4, P 116 (improved to 90), RR 20, BP 108/66, pulse ox 97% on room air Labs on admission: WBC 11.2, H/H 11.4/33.9, platelets 293, sodium 143, potassium 4.3, BUN 37, creatinine 0.9 Patient was admitted to the general medicine floor for treatment of the following problems #Mnire's disease Patient follows with Dr. Kishor Berry, ENT, as an outpatient. The mohs surgeon/general dermatologist ENT was consulted who recommended continuing meclazine and valium and for the patient to follow up as an outpatient. Given her persistent and worsening symptoms and history of TIA, intracranial mass, ischemic event, and intracranial infectious process were ruled out with head CT and MRI. Physical therapy worked with the patient during this admission and meclazine and valium were used for symptomatic control. #GI bleed/anemia Patient had an episode of coffee ground emesis in the ED. She endorsed a history of bloody emesis in the past but has not used NSAIDs recently. Her H/H dropped on this admission to a low of 8.3/24.9. GI was consulted and performed an EGD and colonoscopy which showed a gastric ulcer, gastric erosions, and diverticulosis with no signs of active bleeding. She did not require any transfusions. She was treated with IV PPI during the admission and discharged on an oral PPI and with instructions to follow up with Dr. Florez of GI. #Cholelithiasis Patient has a history of abnormal gallbladder seen on imaging including CT and US. Given her recent nausea and emesis, general surgery was consulted. They recommended MRI which was performed but patient could not tolerate the MRCP limiting the study. No mass was seen in the gallbladder and no definitive choledocholithiasis was seen. The patient will follow-up with Dr. Forrester as an outpatient. DVT prophylaxis was addressed with ALPS, no pharmacologic prophylaxis was used due to bleeding risk. Allergies: Coded Allergies: Penicillins (UNKNOWN 06/09/16) PT. STATES SHE WAS TOLD SHE IS ALLERGIC BUT DOES NOT KNOW THE REACTION. Significant Procedures: EGD and Colonoscopy EGD showed clean-based lesser curvature gastric ulcer, small gastric erosions in the antrum and prepyloric region and presbyesophagus. Colonoscopy showed diverticulosis. Echocardiogram Normal LVEF (65-70%) Mild aortic stenosis and insufficiency. Mild to moderate tricuspid insufficiency. Moderate thickening and calcification of the mitral leaflets is present with mild to moderate annular calcification and minimal mitral insufficiency. Lipomatous atrial septal hypertrophy is present Head MRI 1. No acute intracranial abnormalities identified. No acute infarcts. No intracranial hemorrhage. No acute PICA territory infarcts. 2. No gross evidence of vestibular schwannomas (acoustic neuromas). Of note, thin section images through the internal auditory canals were not obtained as part of this routine unenhanced MRI of the brain. If clinical concern persists regarding possible vestibular schwannomas, consider further evaluation with repeat thin section, dedicated internal auditory canal protocol MRI of the brain. 3. 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 4. Moderate white matter chronic small vessel ischemic disease. Head CT No intracranial hemorrhage or acute intracranial pathology. 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 Generalized parenchymal atrophy of the brain with intracranial atherosclerotic disease and white matter changes most consistent with sequela of chronic microvascular ischemia. Abdominal MRI Dilated extrahepatic biliary tree measuring up to 1.4 cm. The patient was unable to tolerate MRCP. This limits assessment. There is no significant change in caliber since 07/18/17. There is distended gallbladder. There is cholelithiasis. I suspect a diverticulum of the second portion of the duodenum. On the images available I cannot make a definite diagnosis of choledocholithiasis. Disposition Summary Disposition Principal Diagnosis: Mnire's disease Additional Diagnosis: GI bleed, Anemia, Cholelithiasis Discharge Disposition: home or self care Discharge Instructions General Discharge Information Code Status: Full Code Patient's Diet: High Fiber Patient's Activity: As tolerated Follow-Up Instructions/Appts: Follow up with your primary care physician within 1 week of discharge. Follow up with your ENT physician within 1 week of discharge. Follow up with Dr. Florez for continuing GI care within 2 weeks of discharge. Follow up with Dr. Forrester for conitnuing care of your gallstones. Call to make a sooner appointment if you have severe abdominal pain. Medications at Discharge Discharge Medications: Continue taking these medications: Atorvastatin Calcium (Atorvastatin Calcium) 10 MG TABLET 1 Tablet ORAL DAILY Comments: Last Taken: 10/06 Time: 5pm Levothyroxine Sodium (Levoxyl) 75 MCG TABLET 1 Tablet ORAL DAILY BEFORE BREAKFAST Comments: Last Taken: 10/07 Time: 6am Alendronate Sodium (Alendronate Sodium) 70 MG TABLET 70 Milligram ORAL EVERY TUESDAY Instructions: TAKE WITH FULL GLASS OF WATER ON AN EMPTY STOMACH WHILE REMAINING IN AN UPRIGHT POSITION Comments: not given in hospital Losartan Potassium (Cozaar) 50 MG TABLET 1 Tablet ORAL DAILY Comments: not given in hospital Ergocalciferol (Vitamin D2) (Vitamin D2) 50,000 UNIT CAPSULE 1 Capsule ORAL MONTHLY Comments: not given in hospital Bioflav,Lemon/Vit Bcomp,C (Lipo-Flavonoid Plus Caplet) 200 MG-100 MG TABLET 1 Tablet ORAL DAILY Comments: NOT GIVEN Aspirin (Ecotrin*) 81 MG TABLET.DR 1 Tablet ORAL DAILY Instructions: Reason to Stop at ADM: GI bleeding Comments: Last Taken: 01/18/17 Time: 0900AM Meclizine HCl (Meclizine HCl) 25 MG TABLET 1 Tablet ORAL THREE TIMES A DAY NEEDED as needed for VERTIGO Comments: Last Taken: 10/07 Time: 8am Diazepam (Valium) 2 MG TABLET 1 Tablet ORAL TWICE DAILY as needed for vertigo Qty = 10 Comments: Last Taken: 10/07 Time:11am Start taking the following new medications: Omeprazole (Omeprazole) 40 MG CAPSULE.DR 1 Capsule ORAL DAILY Qty = 90 No Refills Instructions: . Comments: Last Taken: 10/07 Time: 6am Ondansetron (Zofran Odt) 4 MG TAB.RAPDIS 1 Tablet SUBLINGUAL THREE TIMES DAILY as needed for NAUSEA Qty = 10 No Refills Instructions: . Comments: Last Taken: 10/07 Time: 6 am Copies To: Marie CLAY,Faizan Berger; Vikki CLAY,Ayesha; Usama CLAY,Rishabh Marcos; Kristi CLAY ,Kishor
== END 2017-10-07 13:45 | DRG 378 ==
LOC: ERH 16:39 → ERHI 21:39 → 2NA 21:39 → ENRESERV 22:29 → ENTRNSPT 22:45 → EDTRNSPTSTS 22:46 → EDTRNSPT 22:46 → CMPTRNSPT 22:53 → 2NA 23:20 → ENPENDDIS 10-07 11:35 → ENTRNSPT 10-07 13:28 → EDTRNSPTSTS 10-07 13:44 → EDTRNSPT 10-07 13:44 → 2NA 10-07 13:45 → CMPTRNSPT 10-07 13:55
PROVIDERS: Dermatology; Internal Medicine Endocrinology, Diabetes & Metabolism; Physician Assistant Medical; Student in an Organized Health Care Education/Training Program
PROC: 0DB98ZX Excision of Duodenum, Via Natural or Artificial Opening Endoscopic, Diagnostic (ICD-10-PCS; 2017-10-05)
PROC: 0DB68ZX Excision of Stomach, Via Natural or Artificial Opening Endoscopic, Diagnostic (ICD-10-PCS; 2017-10-05)
PROC: 0DJD8ZZ Inspection of Lower Intestinal Tract, Via Natural or Artificial Opening Endoscopic (ICD-10-PCS; principal; 2017-10-06)
DX: K92.2 Gastrointestinal hemorrhage, unspecified (principal); E87.0 Hyperosmolality and hypernatremia; D62 Acute posthemorrhagic anemia; E86.0 Dehydration; H81.20 Vestibular neuronitis, unspecified ear; I05.1 Rheumatic mitral insufficiency; H81.09 Meniere's disease, unspecified ear; R26.9 Unspecified abnormalities of gait and mobility; R04.0 Epistaxis; I10 Essential (primary) hypertension; E78.5 Hyperlipidemia, unspecified; K21.9 Gastro-esophageal reflux disease without esophagitis; M19.90 Unspecified osteoarthritis, unspecified site; H91.91 Unspecified hearing loss, right ear; Z85.850 Personal history of malignant neoplasm of thyroid; E89.0 Postprocedural hypothyroidism; Z86.73 Personal history of transient ischemic attack (TIA), and cerebral infarction without residual deficits; R01.1 Cardiac murmur, unspecified; K80.20 Calculus of gallbladder without cholecystitis without obstruction; K64.4 Residual hemorrhoidal skin tags; K57.90 Diverticulosis of intestine, part unspecified, without perforation or abscess without bleeding; F40.240 Claustrophobia; K25.9 Gastric ulcer, unspecified as acute or chronic, without hemorrhage or perforation
CPT/HCPCS: 2NASP; 70551; 74181; 36415; 81003; 82436; 93005; 93010; 93306; 96361; 96374; 97112-GO; 97116-GO; 97161-GP; J3101; J7042

== ENCOUNTER 2018-01-19 14:07 | Observation (INO) | payer OTHER ==
[~2018-01-19] VITALS: Ht 154.9 cm; Wt 58.1 kg
[~2018-01-19 14:07] MED LIST changes: +OMEPRAZOLE40 M1 PO
[2018-01-19 16:08] LABS: ABSOLUTE BASOPHIL COUNT 0 /CUMM (0.0-0.2); ABSOLUTE EOSINOPHIL COUNT 0.1 /CUMM (0.0-0.7); ABSOLUTE GRANULOCYTE CT 5.7 /CUMM (1.4-6.5); ABSOLUTE LYMPH COUNT 0.7 /CUMM (1.2-3.4); ABSOLUTE MONOCYTE COUNT 0.3 /CUMM (0.10-0.60); BASOPHIL % 0.2 % (0.0-2.0); EOSINOPHIL % 1.2 % (0-5); HEMATOCRIT 41.3 % (37-47); MEAN CORPUSCULAR HGB 25.5 PG (27.0-31.0); MEAN CORPUSCULAR HGB CONC 32.7 G/DL (33.0-37.0); MEAN PLATELET VOLUME 7.1 FL (7.4-10.4); PLATELET COUNT 298 /CUMM (130-400); RBC DISTRIBUTION WIDTH 14.5 % (11.5-14.5); WHITE BLOOD CELL COUNT 6.8 /CUMM (4.8-10.8)
--- NOTE | 2018-01-19 19:39 | CT SCAN REPORT ---
EXAMINATION: CT HEAD WITHOUT CONTRAST CLINICAL INFORMATION: Dizziness and headache. COMPARISON: None TECHNIQUE: Contiguous axial imaging was performed from the skull base to vertex without intravenous administration of contrast. DLP: 595.3 mGy-cm FINDINGS: There is no evidence of acute intracranial hemorrhage or territorial infarction. No abnormal mass effect or midline shift is seen. Ann to white matter differentiation is well preserved. No extra-axial fluid collections are identified. There is no evidence of hydrocephalus. There is encephalomalacia in the right temporal lobe, as noted on prior imaging. Mild to marked chronic white matter microangiopathic changes are visible. The osseous structures and soft tissues are normal. The mastoid air cells and visualized portions of the paranasal sinuses are well aerated. IMPRESSION: No acute intracranial pathology. 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
--- NOTE | 2018-01-19 20:37 | ED AMS/SEIZURE/WEAK/DIZZY ---
History of Present Illness General Chief Complaint: Dizziness Stated Complaint: DIZZY,NAUSEA,RINGING IN EAR Source: patient, family, old records Exam Limitations: no limitations Vital Signs & Intake/Output Vital Signs & Intake/Output Vital Signs Date Time Temp Pulse Resp B/P B/P Pulse O2 O2 Flow FiO2 Mean Ox Delivery Rate 01/21 0813 98.6 76 18 126/88 01/20 0753 98.6 76 18 126/88 98 Room Air 01/20 0447 98.2 76 16 125/76 96 Room Air 01/19 2240 70 188/90 01/19 2136 Room Air Room Air 01/19 2131 188/90 01/19 2125 97.7 70 20 196/88 97 Room Air 01/19 1846 66 20 197/88 98 Room Air 01/19 1615 80 18 161/81 99 Room Air 01/19 1436 98.0 74 20 178/79 98 Room Air ED Intake and Output 01/20 0000 01/19 1200 Intake Total 60 Output Total Balance 60 Intake, Oral 60 Patient 128 lb Weight Weight Reported by Patient Measurement Method Allergies Coded Allergies: Penicillins (UNKNOWN 01/19/18) PT. STATES SHE WAS TOLD SHE IS ALLERGIC BUT DOES NOT KNOW THE REACTION. Reconcile Medications Alendronate Sodium 70 MG TABLET 70 MG PO QSUN BONES (Reported) TAKE WITH FULL GLASS OF WATER ON AN EMPTY STOMACH WHILE REMAINING IN AN UPRIGHT POSITION Aspirin (Ecotrin*) 81 MG TABLET.DR 1 TAB PO DAILY TIA (Reported) Reason to Stop at ADM: GI bleeding Atorvastatin Calcium 10 MG TABLET 1 TAB PO DAILY CHOLESTEROL (Reported) Bioflav,Lemon/Vit Bcomp,C (Lipo-Flavonoid Plus Caplet) 200 MG-100 MG TABLET 1 TAB PO DAILY VITAMIN (Reported) Diazepam (Valium) 2 MG TABLET 1 TAB PO BID PRN vertigo Ergocalciferol (Vitamin D2) (Vitamin D2) 50,000 UNIT CAPSULE 1 CAP PO MONTHLY supplement (Reported) Levothyroxine Sodium (Levoxyl) 75 MCG TABLET 1 TAB PO DAILY AC THYROID ( Reported) Losartan Potassium (Cozaar) 50 MG TABLET 1 TAB PO DAILY HTN (Reported) Meclizine HCl 25 MG TABLET 1 TAB PO TIDPRN PRN VERTIGO (Reported) Omeprazole 40 MG CAPSULE.DR 1 CAP PO DAILY GASTRITIS . Ondansetron (Zofran Odt) 4 MG TAB.RAPDIS 1 TAB SL TID PRN NAUSEA . Triage Note: PT C/O H/A DIZZINESS, RINGING IN RIGHT AND UPSET STOMACH. STATES 3RD SPELL THIS WEEK. STATES THIS HAS BEEN GOING OFF AND ON X 2 YEARS. STATES SHE TOOK MECLIZINE TODAY AND IT DIDN'T WORK Triage Nurses Notes Reviewed? yes Onset: Abrupt Duration: hour(s): (8), changing over time, continues in ED Timing: recent history Injury Environment: home Severity: moderate, severe No Modifying Factors: none LMP (ages 10-50): post menopausal : No Patient currently breastfeeds: No HPI: 83-year-old female past medical history of vertigo, Mnire's disease, hypertension, hyperlipidemia presents for evaluation of dizziness. Patient states that symptoms started around noon today while she was walking. She states that the dizziness is worse with movement of her head or movement of her eyes improves with rest. She also reports associated ringing in her right ear fullness in the right ear and headaches. Patient states that she has had multiple episodes over the past several years. She feels this is similar to her Mnire's disease. She's been taking meclizine every 8 hours with mild improvement. No chest pain shortness of breath head trauma fever or neck pain. She does report some associated nausea. No one-sided weakness slurred speech or changes in vision. (Clayton Still) Past History Travel History Traveled to [place] past 21 day No Medical History Any Pertinent Medical History? see below for history Neurological: vertigo, TIA 2006 ?MENIERES EENT: allergies, cataracts, epistaxis, sinusitis, L EYE DETACHED RETINA Cardiovascular: hypertension, hyperlipidemia, mitral regurgitation Respiratory: NONE Gastrointestinal: ? 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 No (Clayton Still) Review of Systems Review of Systems Constitutional: Reports: no symptoms. EENTM: Reports: ear pain. Respiratory: Reports: no symptoms. Cardiovascular: Reports: no symptoms. GI: Reports: no symptoms. Genitourinary: Reports: no symptoms. Musculoskeletal: Reports: no symptoms. Skin: Reports: no symptoms. Neurological/Psychological: Reports: see HPI (DIZZY). Hematologic/Endocrine: Reports: no symptoms. Immunologic/Allergic: Reports: no symptoms. All Other Systems: Reviewed and Negative (Clayton Still) Physical Exam Physical Exam General Appearance: well developed/nourished, no apparent distress, alert, awake Head: atraumatic, normal appearance Eyes: Bilateral: normal appearance, PERRL, EOMI. Ears, Nose, Throat: normal pharynx, normal ENT inspection, hearing grossly normal, THE RIGHT EXTERNAL AUDITORY CANAL IS OBSTRUCTED WITH CERUMEN AFTER FLUSHING IS CLEAR WITHOUT ERYTHEMA OR EDEMA Neck: normal inspection, supple, full range of motion, NO CAROTID BRUITS OR jvd Respiratory: normal breath sounds, chest non-tender, no respiratory distress, lungs clear Cardiovascular: regular rate/rhythm, normal peripheral pulses Peripheral Pulses: 2+ radial (R), 2+ radial (L) Gastrointestinal: soft, non-tender Back: normal inspection, normal range of motion, no vertebral tenderness Extremities: normal range of motion Neurologic/Psych: no motor/sensory deficits, awake, alert, oriented x 3, director of collections II- XII nml as tested, NEGATIVE rOMBERG, [id number] TESTING NORMAL CEREBELLAR TESTING INTACT Skin: intact, normal color, warm/dry Lymphatic: no anterior cervical char[place] Core Measures ACS in differential dx? No CVA/TIA Diagnosis No Sepsis Present: No Sepsis Focused Exam Completed? No (Clayton Still) Progress Differential Diagnosis: arrythmia, anemia, benign positional vertigo, CVA/stroke , dehydration, electrolyte imbalance, GI bleed, intracranial Hem., intracranial mass/tumor, Meniere's disease, migraine [place], postural hypotension, presyncope, post-traumatic vertigo, sepsis, subarachnoid Hem., UTI/pyelo, vertebrobasilar insuff Plan of Care: Orders Procedure Date/time Status Regular Diet 01/20 B Active Discharge Patient 01/21 932 Active CASE MANAGEMENT CONSULT 01/21 924 Active Neuromuscular Re-Ed 15Min Ea 01/20 UNK Complete MOBILITY D/C STATUS 01/20 UNK Complete MOBILITY GOAL STATUS 01/20 UNK Complete MOBILITY CURRENT STATUS 01/20 UNK Complete Gait Training, 15 Min 01/20 UNK Complete PT EVAL LOW COMPLEX 20 MIN 01/20 UNK Complete PT Evaluate & Treat 01/19 2220 Active OXYGEN SETUP (GEN) 01/19 2213 Active Saline Lock 01/[address] in observation 01/19 2213 Active Patient Data 01/19 221 Active Vital Signs 01/19 221 Active Activity/Ambulation 01/19 221 Active Code Status 01/19 221 Active Intake & Output 01/19 212 Active MISTAKE 01/19 1831 Active URINALYSIS 01/19 1412 Complete TROPONIN LEVEL 01/19 1412 Complete COMPREHENSIVE METABOLIC PANEL 01/19 1412 Complete CBC WITHOUT DIFFERENTIAL 01/19 1412 Complete EKG 01/19 1411 Active Current Medications Sig/Arun Start time Last Medication Dose Stop Time Status Admin Atorvastatin Calcium 10 MG 1700 01/20 1700 AC (Lipitor) Aspirin 81 MG DAILY 01/20 0900 AC 01/20 (Aspirin) 0813 Losartan Potassium 50 MG DAILY 01/20 0900 AC 01/20 (Cozaar) 0813 Levothyroxine Sodium 0.075 MG DAILY AC 01/20 0700 AC 01/20 (Synthroid) 0753 Meclizine HCl 25 MG TID PRN 01/19 2230 AC (Antivert) Laboratory Tests 01/20/18 0455: Urinalysis LIGHT H, Urine Color YEL, Urine Clarity CLEAR, Urine pH 6.0, Ur Specific [place] 1.020, Urine Protein NEG, Urine Ketones NEG, Urine Nitrite NEG, Urine Bilirubin NEG, Urine Urobilinogen 0.2, Ur Leukocyte Esterase SMALL H, Ur Microscopic SEDIMENT EXAMINED, Urine RBC 1-3, Urine WBC 10-15 H, Ur Epithelial Cells RARE, Urine Mucus RARE, Urine Hemoglobin NEG, Urine Glucose NEG 01/19/18 1555: Anion Gap 13, Estimated GFR > 60, BUN/Creatinine Ratio 18.9, Glucose 160 H, Calcium 9.6, Total Bilirubin 0.5, AST 18, ALT 26, Alkaline Phosphatase 58, Troponin I < 0.01, Total Protein 7.5, Albumin 4.3, Globulin 3.2, Albumin/ Globulin Ratio 1.3, CBC w Diff NO MAN DIFF REQ, RBC 5.30, MCV 78.0 L, MCH 25.5 L, MCHC 32.7 L, RDW 14.5, MPV 7.1 L, Gran % 84.0 H, Lymphocytes % 9.8 L, Monocytes % 4.8, Eosinophils % 1.2, Basophils % 0.2, Absolute Granulocytes 5.7, Absolute Lymphocytes 0.7 L, Absolute Monocytes 0.3, Absolute Eosinophils 0.1, Absolute Basophils 0 Patient seen and evaluated. She is reporting dizziness starting at 12:00 this afternoon. She has a history of similar symptoms diagnosed with vertigo and M nire's disease. She is neurologically intact. The dizziness is worse with movement and resolves with rest. There is no chest pain or shortness of breath. EKG is unchanged basically bloodwork is unchanged. CT scan of the brain is negative. Patient was medicated with meclizine and Tylenol her right ear cerumen impaction was flushed. She has reported improvement in her dizziness. Reports that she currently feels weak. She was ambulated in the emergency department and has a steady gait however the family felt like she is too weak to go home. They're afraid that she may fall during the night. Patient will be held over in the emergency department for a physical therapy evaluation and reevaluation in the morning. We'll continue to give patient meclizine every hours. Additionally patient was hypertensive in the emergency department 180s over 90s. She usually takes losartan 50 mg daily. She took this this morning she was also given a dose of labetalol 200 mg by mouth here. Patient signed out to Dr. Garcia pending physical therapy evaluation and reevaluation Diagnostic Imaging: Viewed by Me: CT Scan. Discussed w/RAD: CT Scan. Radiology Impression: PATIENT: NELSON NOVOA PRESENT AGE: 83 PATIENT ACCOUNT NO: [id number] : 37 LOCATION: [facility] ORDERING PHYSICIAN: Clayton DAVIS SERVICE DATE: 01/19/18 EXAM TYPE: CAT - CT HEAD WO IV CONTRAST EXAMINATION: CT HEAD WITHOUT CONTRAST CLINICAL INFORMATION: Dizziness and headache. COMPARISON: None TECHNIQUE: Contiguous axial imaging was performed from the skull base to vertex without intravenous administration of contrast. DLP: 595.3 mGy-cm FINDINGS: There is no evidence of acute intracranial hemorrhage or territorial infarction. No abnormal mass effect or midline shift is seen. Ann to white matter differentiation is well preserved. No extra-axial fluid collections are identified. There is no evidence of hydrocephalus. There is encephalomalacia in the right temporal lobe, as noted on prior imaging. Mild to marked chronic white matter microangiopathic changes are visible. The osseous structures and soft tissues are normal. The mastoid air cells and visualized portions of the paranasal sinuses are well aerated. IMPRESSION: No acute intracranial pathology. 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 DICTATED BY: Danny Hong MD DATE/TIME DICTATED:01/19/181932 UNIVERSITY PROFESSOR:MEGHAN DATE/TIME TRANSCRIBED:01/19/181932 CONFIDENTIAL, DO NOT COPY WITHOUT APPROPRIATE AUTHORIZATION. <Electronically signed in Other Vendor System> SIGNED BY: Danny Hong MD 01/19/181938 Initial ED EKG: normal sinus rhythm, LAFB, ABNORMAL R WAVE PROGRESSION Prior EKG: unchanged Hand-Off Endorsed To: Ad Garcia MD Endorsed Time: 0001 Pending: other (PT, REEVAL) (Clayton Still) Hand-Off Endorsed To: Tim Preciado MD Endorsed Time: 0700 Pending: other (Ad Garcia MD) Comments: 01/20/2018 9:32:35 AM patient signed out to me by Dr. Garcia at shift exchange consultant. Patient has been evaluated by physical therapy and felt to be stable for discharge home. PT has noted that the patient is declining home physical therapy. She has a walker at home to help with ambulation. At discharge patient has no specific complaint. (Tim Preciado MD) Departure Departure Condition: Stable Clinical Impression Primary Impression: Dizziness Secondary Impressions: Gait instability Referrals: Marie CLAY,Faizan Berger (PCP/Family) Departure Forms: Customer Survey General Discharge Information (Clayton Still) PA/ASSOCIATE DESIGNER Co-Sign Statement Statement: ED Attending supervision documentation- x I saw and evaluated the patient. I have also reviewed all the pertinent lab results and diagnostic results. I agree with the findings and the plan of care as documented in the PA's/ASSOCIATE DESIGNER's documentation. [] I have reviewed the ED Record and agree with the PA's/ASSOCIATE DESIGNER's documentation. [] Additions or exceptions (if any) to the PAs/ASSOCIATE DESIGNER's note and plan are summarized below: [] (Radha CLAY,Ad) Departure Disposition: HOME OR SELF CARE Additional Instructions: Continue your meclizine as needed for dizziness or vertigo. Use walker while ambulating. U your primary care physician of this emergency department visit and treatment plan today and arrange for follow-up appointment. Return if any concerns or sudden worsening. Please note that there might be incidental findings in your evaluation that are unrelated to the current emergency department visit. Please notify your primary care doctor about this emergency department visit in order to obtain and review all of the testing performed so that these incidental findings can be monitored as needed. If you had an x-ray performed, please understand that some fractures may not be seen on the initial set of x-rays. If your symptoms persist you might need a repeat set of x-rays to check for such a fracture. If you had a laceration evaluated, please understand that foreign bodies such as glass or wood may not be visible to the naked eye or on plain x-rays. If the wound becomes red, swollen, increasingly more painful or if there is any drainage from the wound, please have it reevaluated by a physician for the possibility of a retained foreign body. If you're unable to follow up as outlined in the discharge instructions please return to the emergency department. Thank you for choosing the [facility] Emergency Department for your care. It was a pleasure to serve you today. Tim Preciado M.D. [facility] (Ilana CLAY,Tim Gamble) ED Attending Observation Initial Observation Note: I have seen and personally examined NELSON NOVOA on 01/20/18 at 0119. I agree with the current emergency department documentation. The disposition (admission or discharge) is uncertain at this time, she needs a period of observation for the following reason(s): dizziness with unstable gait The ED Nurse caring for this patient has been personally informed as to what the patient is being observed for. (Ad Garcia MD)
[2018-01-20 09:47] VITALS: BP 101/54
== END 2018-01-20 10:35 ==
LOC: ERH 14:07 → ERHI 22:13
PROVIDERS: Physician Assistant Medical
DX: R42 Dizziness and giddiness (principal); H81.09 Meniere's disease, unspecified ear; R26.9 Unspecified abnormalities of gait and mobility; I10 Essential (primary) hypertension; E78.5 Hyperlipidemia, unspecified; Z86.73 Personal history of transient ischemic attack (TIA), and cerebral infarction without residual deficits; Z85.850 Personal history of malignant neoplasm of thyroid
CPT/HCPCS: 6090; 81001; 93005; 93010; 97112-GP; 97116-GP; 97161-GP; G0378; G8978-GP; G8979-GP; G8980-GP; J3490

== ENCOUNTER 2018-01-22 02:41 | Observation (INO) | payer OTHER ==
[~2018-01-22] VITALS: Ht 157.5 cm; Wt 59.0 kg
--- NOTE | 2018-01-22 03:52 | ED AMS/SEIZURE/WEAK/DIZZY ---
History of Present Illness General Chief Complaint: General Adult Stated Complaint: BIBA N/V Source: patient, family, old records, EMS Exam Limitations: no limitations Vital Signs & Intake/Output Vital Signs & Intake/Output Vital Signs Date Time Temp Pulse Resp B/P B/P Pulse O2 O2 Flow FiO2 Mean Ox Delivery Rate 01/22 1441 78 136/72 01/22 1414 97.8 76 20 136/72 95 Room Air 01/22 0924 75 156/74 01/22 0825 98.0 76 18 158/74 96 Room Air 01/22 0629 98.3 83 18 128/62 98 Room Air 01/22 0557 98 Room Air 01/22 0243 98.0 80 20 164/77 98 Allergies Coded Allergies: Penicillins (UNKNOWN 01/19/18) PT. STATES SHE WAS TOLD SHE IS ALLERGIC BUT DOES NOT KNOW THE REACTION. Reconcile Medications Alendronate Sodium 70 MG TABLET 70 MG PO QSUN BONES (Reported) TAKE WITH FULL GLASS OF WATER ON AN EMPTY STOMACH WHILE REMAINING IN AN UPRIGHT POSITION Aspirin (Ecotrin*) 81 MG TABLET.DR 1 TAB PO DAILY TIA (Reported) Reason to Stop at ADM: GI bleeding Atorvastatin Calcium 10 MG TABLET 1 TAB PO DAILY CHOLESTEROL (Reported) Bioflav,Lemon/Vit Bcomp,C (Lipo-Flavonoid Plus Caplet) 200 MG-100 MG TABLET 1 TAB PO DAILY VITAMIN (Reported) Diazepam (Valium) 2 MG TABLET 1 TAB PO BID PRN vertigo Ergocalciferol (Vitamin D2) (Vitamin D2) 50,000 UNIT CAPSULE 1 CAP PO MONTHLY supplement (Reported) Levothyroxine Sodium (Levoxyl) 75 MCG TABLET 1 TAB PO DAILY AC THYROID ( Reported) Losartan Potassium (Cozaar) 50 MG TABLET 1 TAB PO DAILY HTN (Reported) Meclizine HCl 25 MG TABLET 1 TAB PO TIDPRN PRN VERTIGO (Reported) Omeprazole 40 MG CAPSULE.DR 1 CAP PO DAILY GASTRITIS . Ondansetron (Zofran Odt) 4 MG TAB.RAPDIS 1 TAB SL TID PRN NAUSEA . Triage Note: PT BIBA FROM HOME C/O N/V AND DIZZINESS ALL NIGHT. PT HX MENIERE'S AND STATES THIS IS A CHRONIC ISSUE. PT VOMITING UPON ARRIVAL. IV ESTABLISHED #20 RAC FOR QUICK ACCESS TO MEDICATE WITH ZOFRAN. Triage Nurses Notes Reviewed? yes Onset: Evening Duration: hour(s):, constant, continues in ED Timing: recent history Injury Environment: home Severity: severe Modifying Factors: Worsens With: movement. Associated Symptoms: diaphoresis LMP (ages 10-50): post menopausal : No Patient currently breastfeeds: No HPI: Several hours prior to admission patient complains of recurrent vertigo unable to open her eyes or stand with nausea. Prior episodes of Mnire's disease are coming more frequent last 2 days prior to admission. She denies fever chills chest pain cough shortness of breath diarrhea abdominal pain dysuria rash headache bleeding. Past History Travel History Traveled to [place] past 21 day No Medical History Any Pertinent Medical History? see below for history Neurological: vertigo, TIA 2007 ?MENIERES EENT: allergies, cataracts, epistaxis, sinusitis, L EYE DETACHED RETINA Cardiovascular: hypertension, hyperlipidemia, mitral regurgitation Respiratory: NONE Gastrointestinal: ? 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 No Review of Systems Review of Systems Constitutional: Reports: no symptoms. EENTM: Reports: no symptoms. Respiratory: Reports: no symptoms. Cardiovascular: Reports: no symptoms. GI: Reports: see HPI, nausea, vomiting. Genitourinary: Reports: no symptoms. Musculoskeletal: Reports: no symptoms. Skin: Reports: no symptoms. Neurological/Psychological: Reports: see HPI. Hematologic/Endocrine: Reports: no symptoms. Immunologic/Allergic: Reports: no symptoms. All Other Systems: Reviewed and Negative Physical Exam Physical Exam General Appearance: well developed/nourished, alert, awake, anxious, severe distress Head: atraumatic, normal appearance Eyes: Bilateral: normal appearance, PERRL, EOMI, other (nystagmus). Ears, Nose, Throat: normal pharynx, normal ENT inspection, hearing grossly normal Neck: normal inspection, supple, full range of motion, no midline tenderness Respiratory: normal breath sounds, chest non-tender, no respiratory distress, quiet respiration, lungs clear Cardiovascular: regular rate/rhythm, normal peripheral pulses, norml femoral pulses equa Peripheral Pulses: 4+ carotid (R), 4+ carotid (L) Gastrointestinal: normal bowel sounds, soft, non-tender, no organomegaly Back: normal inspection, normal range of motion, no vertebral tenderness Extremities: normal range of motion, no ligament instability Neurologic/Psych: no motor/sensory deficits, awake, alert, oriented x 3, normal mood/affect, abnormal gait (unable to eat out of bed) Reflexes: 2+: bicep (R), bicep (L). Skin: intact, normal color, warm/dry Lymphatic: no anterior cervical [place] Core Measures ACS in differential dx? No CVA/TIA Diagnosis No Sepsis Present: No Sepsis Focused Exam Completed? No Progress Differential Diagnosis: benign positional vertigo, drug intoxication, electrolyte imbalance Plan of Care: Orders Procedure Date/time Status CBC WITHOUT DIFFERENTIAL 01/23 0600 Active BASIC ELECTROLYTES PLUS BUN&CR 01/23 0600 Active Heart Healthy Diet 01/22 L Active Regular Diet 01/22 B Complete Vital Signs 01/22 0903 Active Teach/Educate 01/22 0903 Active Pain Treatment and Response 01/22 0903 Active Nutritional Intake, Monitor 01/22 0903 Active Isolation 01/22 0903 Active Intake & Output 01/22 0903 Active Patient Care Conference 01/22 0903 Active Activity/Ambulation 01/22 0903 Active Pathway - chart 01/22 0733 Active House Staff 01/22 0733 Active Code Status 01/22 0733 Active EKG 01/22 0702 Active Patient Data 01/22 0647 Active OXYGEN SETUP (GEN) 01/22 0632 Active Saline Lock 01/[address] in observation 01/22 0632 Active Vital Signs 01/22 0632 Active Activity/Ambulation 01/22 0632 Active Code Status 01/22 0632 Complete TROPONIN LEVEL 01/22 0340 Complete MAGNESIUM 01/22 0340 Complete COMPREHENSIVE METABOLIC PANEL 01/22 0340 Complete CBC WITHOUT DIFFERENTIAL 01/22 0340 Complete Intake & Output 01/22 0304 Active PT Evaluate & Treat 01/22 UNK Active VTE Mechanical Prophylaxis 01/22 UNK Active MISTAKE 01/22 UNK Active Current Medications Sig/Arun Start time Last Medication Dose Stop Time Status Admin Atorvastatin Calcium 10 MG 1700 01/22 1700 AC 01/22 (Lipitor) 1902 Losartan Potassium 50 MG DAILY 01/22 1337 AC 01/22 (Cozaar) 1441 Aspirin Buffered 81 MG DAILY 01/22 0900 AC 01/22 (Ecotrin) 1155 Enoxaparin Sodium 40 MG DAILY 01/22 0900 AC 01/22 (Lovenox) 1155 Acetaminophen 650 MG Q6P PRN 01/22 0745 AC (Tylenol) Ondansetron HCl 4 MG Q6P PRN 01/22 0745 AC (Zofran) Diazepam 2 MG BID PRN 01/22 0730 AC (Valium) Sodium Chloride 1,000 ML ONCE ONE 01/22 0730 AC 01/22 (Normal Saline 0.9%) 01/22 2049 0911 Meclizine HCl 25 MG TID PRN 01/22 0715 AC 01/22 (Antivert) 1155 Omeprazole 40 MG DAILY AC 01/22 0715 AC 01/22 (Prilosec) 115 Levothyroxine Sodium 0.075 MG DAILY AC 01/22 0714 AC 01/22 (Synthroid) 1155 Laboratory Tests 01/22/18 0348: Anion Gap 12, Estimated GFR > 60, BUN/Creatinine Ratio 21.1, Glucose 120 H, Calcium 9.7, Magnesium 1.8, Total Bilirubin 0.5, AST 19, ALT 28, Alkaline Phosphatase 58, Troponin I < 0.01, Total Protein 7.6, Albumin 4.3, Globulin 3.3, Albumin/Globulin Ratio 1.3, CBC w Diff NO MAN DIFF REQ, RBC 5.11, MCV 77.6 L, MCH 25.6 L, MCHC 32.9 L, RDW 14.7 H, MPV 7.5, Gran % 66.4, Lymphocytes % 19.5 L, Monocytes % 9.4 H, Eosinophils % 4.5, Basophils % 0.2, Absolute Granulocytes 4.2, Absolute Lymphocytes 1.2, Absolute Monocytes 0.6, Absolute Eosinophils 0.3, Absolute Basophils 0 Initial ED EKG: normal axis, normal intervals, normal p-waves, normal QRS complex, normal sinus rhythm, no ST T wave changes Prior EKG: unchanged Rhythm Strip: normal sinus rhythm Departure Departure Disposition: STILL A PATIENT Condition: Stable Clinical Impression Primary Impression: Vertigo Secondary Impressions: Menieres disease Referrals: Marie CLAY,Faizan Berger (PCP/Family) Departure Forms: Customer Survey General Discharge Information Observation Note Spoke With: Bryant CLAY,Selina Physician Advisor Notified: DIPTI BLAND DO Place Patient In: Non-ED OBS Care Area Rationale for Observation: My rational for observation is as follows unsafe ambulation antiemetic medication adjustment physical therapy continuing care discharge planning.
[2018-01-22 04:16] LABS: ABSOLUTE BASOPHIL COUNT 0 /CUMM (0.0-0.2); ABSOLUTE EOSINOPHIL COUNT 0.3 /CUMM (0.0-0.7); ABSOLUTE GRANULOCYTE CT 4.2 /CUMM (1.4-6.5); ABSOLUTE LYMPH COUNT 1.2 /CUMM (1.2-3.4); ABSOLUTE MONOCYTE COUNT 0.6 /CUMM (0.10-0.60); BASOPHIL % 0.2 % (0.0-2.0); EOSINOPHIL % 4.5 % (0-5); GRANULOCYTE % 66.4 % (42.2-75.2); HEMATOCRIT 39.7 % (37-47); MEAN CORPUSCULAR HGB 25.6 PG (27.0-31.0); MEAN CORPUSCULAR HGB CONC 32.9 G/DL (33.0-37.0); MEAN CORPUSCULAR VOLUME 77.6 FL (81.0-99.0); MEAN PLATELET VOLUME 7.5 FL (7.4-10.4); PLATELET COUNT 295 /CUMM (130-400); RBC DISTRIBUTION WIDTH 14.7 % (11.5-14.5); RED BLOOD CELL CT 5.11 /CUMM (4.20-5.40); WHITE BLOOD CELL COUNT 6.4 /CUMM (4.8-10.8)
--- NOTE | 2018-01-22 06:49 | History & Physical ---
Russell Arroyo 01/22/18 0649: General Information and HPI History of Present Illness: Ms. Saunders is an 82-year-old female with a PMH significant for Mni re's disease, TIA, HTN, HLD, mitral regurgitation, GI bleed, hypothyroidism, and OA BIBA with N/V and lightheadedness since Tuesday evening. at bedside. Patient reports she was resting in bed then about 9 PM she her hair began to bring "like crazy". He was followed by lightheadedness and sweating. She then went to the bathroom to vomit but all that came up was phlegm. She then sat on the floor of the bathroom and was afraid to get up due to fear of falling. Within the past week she reports > 4 attacks. She also reports a frontal headache accompanied by blurry vision. She reports a good appetite. She has an upcoming appointment with ENT that she routinely goes to every 3 months. Though she has a walker she does not need it for assistance. She denies trauma, fever, chills, LOC, weakness, urinary or bowel symptoms. Allergies/Medications Allergies: Coded Allergies: Penicillins (UNKNOWN 01/19/18) PT. STATES SHE WAS TOLD SHE IS ALLERGIC BUT DOES NOT KNOW THE REACTION. Home Med list Alendronate Sodium 70 MG TABLET 70 MG PO QSUN BONES (Reported) TAKE WITH FULL GLASS OF WATER ON AN EMPTY STOMACH WHILE REMAINING IN AN UPRIGHT POSITION Aspirin (Ecotrin*) 81 MG TABLET.DR 1 TAB PO DAILY TIA (Reported) Reason to Stop at ADM: GI bleeding Atorvastatin Calcium 10 MG TABLET 1 TAB PO DAILY CHOLESTEROL (Reported) Bioflav,Lemon/Vit Bcomp,C (Lipo-Flavonoid Plus Caplet) 200 MG-100 MG TABLET 1 TAB PO DAILY VITAMIN (Reported) Diazepam (Valium) 2 MG TABLET 1 TAB PO BID PRN vertigo Ergocalciferol (Vitamin D2) (Vitamin D2) 50,000 UNIT CAPSULE 1 CAP PO MONTHLY supplement (Reported) Levothyroxine Sodium (Levoxyl) 75 MCG TABLET 1 TAB PO DAILY AC THYROID ( Reported) Losartan Potassium (Cozaar) 50 MG TABLET 1 TAB PO DAILY HTN (Reported) Meclizine HCl 25 MG TABLET 1 TAB PO TIDPRN PRN VERTIGO (Reported) Omeprazole 40 MG CAPSULE.DR 1 CAP PO DAILY GASTRITIS . Ondansetron (Zofran Odt) 4 MG TAB.RAPDIS 1 TAB SL TID PRN NAUSEA . Past History Travel History Traveled to [place] past 21 day No Medical History Neurological: vertigo, TIA 2007 ?MENIERES EENT: allergies, cataracts, epistaxis, sinusitis, L EYE DETACHED RETINA Cardiovascular: hypertension, hyperlipidemia, mitral regurgitation Respiratory: NONE Gastrointestinal: ? GI BLEED JANUARY 2017 Hepatic: NONE Renal: NONE Musculoskeletal: osteoarthritis Psychiatric: NONE Endocrine: hypothyroidism Blood Disorders: NONE Cancer(s): thyroid cancer SUPERVISOR REMELT/Reproductive: NONE History of MRSA: No History of VRE: No History of CDIFF: No Surgical History Surgical History: hysterectomy, THYROIDECTOMY DETACHED RETINA CATARACTS REMOVAL TONSILLECTOMY Past Family/Social History Family History Relations & Conditions if any neice Relation not specified for: FHx: breast cancer Psychosocial History Who Do You Live With? spouse Services at Home: None Primary Language: Citizen Of [place] Functional Ability ADLs Independent: dressing, eating, toileting, bathing. Ambulation: independent IADLs Independent: shopping, housework, finances, food prep, telephone, transportation , medication admin. Review of Systems Review of Systems Constitutional: Reports: see HPI. Exam & Diagnostic Data Last 24 Hrs of Vital Signs/I&O Vital Signs Date Time Temp Pulse Resp B/P B/P Pulse O2 O2 Flow FiO2 Mean Ox Delivery Rate 01/22 0629 98.3 83 18 128/62 98 Room Air 01/22 0557 98 Room Air 01/22 0243 98.0 80 20 164/77 98 Intake & Output 01/22 0800 01/22 0000 01/21 1600 Intake Total Output Total Balance Patient 150 lb Weight Physical Exam General Appearance Alert, Oriented X3, Cooperative, No Acute Distress HEENT Atraumatic, PERRLA, EOMI, Mucous Membr. moist/pink Neck Supple, No JVD Cardiovascular 2/6 systolic murmur Lungs Clear to Auscultation, Normal Air Movement Abdomen Normal Bowel Sounds, Soft, No Tenderness Extremities No Edema, Normal Pulses Last 24 Hrs of Labs/Manuelito: Laboratory Tests 01/22/18 0348: Anion Gap 12, Estimated GFR > 60, BUN/Creatinine Ratio 21.1, Glucose 120 H, Calcium 9.7, Magnesium 1.8, Total Bilirubin 0.5, AST 19, ALT 28, Alkaline Phosphatase 58, Troponin I < 0.01, Total Protein 7.6, Albumin 4.3, Globulin 3.3, Albumin/Globulin Ratio 1.3, CBC w Diff NO MAN DIFF REQ, RBC 5.11, MCV 77.6 L, MCH 25.6 L, MCHC 32.9 L, RDW 14.7 H, MPV 7.5, Gran % 66.4, Lymphocytes % 19.5 L, Monocytes % 9.4 H, Eosinophils % 4.5, Basophils % 0.2, Absolute Granulocytes 4.2, Absolute Lymphocytes 1.2, Absolute Monocytes 0.6, Absolute Eosinophils 0.3, Absolute Basophils 0 Assessment/Plan Assessment: Ms. Saunders is an 82-year-old female with a PMH significant for Mni re's disease, TIA, HTN, HLD, mitral regurgitation, GI bleed, hypothyroidism, and OA BIBA for N/V ECHO 09/2017: Normal LVEF (65-70%) Mild aortic stenosis and insufficiency. Lipomatous atrial septal hypertrophy is present. 01/2018: CT head was negative for any acute pathology and a stable right temporal lobe encephalomalacia and mild to moderate chronic white matter microangiopathic changes. Problem list: N/V History of Mnire's disease Plan: Place in 23 hours OBS for further evaluation and management Continue home medications except losartan Check orthostats Hold losartan pending orthostats Continue scopolamine patch ECG to rule out QTc prolongation PT eval Diet: Heart healthy DVT ppx: sc heparin Code: DNR/I As Ranked By This Provider Problem List: 1. Vertigo Core Measures/Misc (06/26) Acute Coronary Syndrome ACS Diagnosis: No Congestive Heart Failure Congestive Heart Failure Diagnosis No Cerebrovascular Accident CVA/TIA Diagnosis: No VTE (View Protocol) VTE Risk Factors Age>40 No Mechanical VTE Prophylaxis d/t N/A MechProphylax Ordered No VTE Pharm Prophylaxis d/t NA PharmProphylax ordered Sepsis (View protocol) Sepsis Present: No Catia Lyman 01/22/18 0828: Resident Review Statement Resident Statement: examined this patient, discussed with analysis intern, agreed with analysis intern, reviewed images, amended to note Other Findings: 82-year-old lady with past medical history of Mnire's disease,TIA, HTN, HLD, mitral regurgitation, GI bleed, hypothyroidism, who came to the hospital with chief complaint of nausea and vomiting and dizziness since 9 PM. Patient reported that since 9 PM she had an episode of severe dizziness and one episode of vomiting due to nausea. Denies any sick contacts, fevers, chills. Patient does report moderate headache which is occasionally happens with these episodes of Mnire's exacerbation. no Changes in urinary or bowel habits. She reports that she had an attack about 3 months ago.she had 3 episodes of attacks since last week last time was 2 days ago which she came to ED and CAT scan did not show any acute pathology. Vital signs in ED was stable, no fevers Alert and oriented 3 Chest was clear Cranial nerve exams WNL full details above Labs notable for MCV 77.6, hemoglobin 13.1 EKG was not available Assessment hx of HTN hx Mnire disease History of hyperlipidemia hx of hypothyroidism Plan Observation in general Orthostatics and hold losartan IV hydration with 1 L of normal saline IV Zofran, PO meclizine, PO Diazepam, scopolamine patch Continue aspirin, statin, Omeprazole, levothyroxine We will consider steroids if patient's symptoms does not get better PT eval EKG one time DNR/DNI, heart healthy diet, Tylenol for pain, DVT prophylaxis is mechanical and Lovenox Selina Hurtado MD 01/22/18 1526: Attending MD Review Statement Attending Statement Attending MD Statement: examined this patient, discuss w/resident/PA/ASSISTANT PROFESSOR OF SOCIOLOGY, agreed w/resident/PA/ASSISTANT PROFESSOR OF SOCIOLOGY, reviewed EMR data (avail) Attending Assessment/Plan: 83F PMH Mnire's disease,TIA, HTN, HLD, mitral regurgitation, GI bleed, hypothyroidism reports intractable dizziness and nausea since late last night, consistent with prior acute exacerbations of her Meniere's. Difficulty ambulating due to dizziness. Neuro exam is normal without deficit or nystagmus. 1. Acute exacerbation of Meniere's Plan - Observation in general medicine - Scopolamine patch placed - PRN Valium and Meclizine - Continue home medications - DVT PPx
[2018-01-22 08:25] VITALS: BP 158/74
[2018-01-22 09:24] VITALS: BP 156/74
[2018-01-22 14:14] VITALS: BP 136/72
[2018-01-22 21:11] VITALS: BP 126/78
[2018-01-23 06:00] VITALS: BP 149/82
--- NOTE | 2018-01-23 07:32 | PN- Housestaff ---
Katrina CLAY,Daryl 01/23/18 0732: Subjective Follow-up For: Dizziness, N/V H/O Mnire disease Subjective: Patient was seen and examined today. Patient reports lightheadedness and tinnitus. Patient denies any dizziness. Denies chest pain, palpitations, shortness of breath, abdominal pain, nausea/vomiting. No acute events overnight. Review of Systems Constitutional: Reports: see HPI. Objective Last 24 Hrs of Vital Signs/I&O Vital Signs Date Time Temp Pulse Resp B/P B/P Pulse O2 O2 Flow FiO2 Mean Ox Delivery Rate 01/23 0815 75 142/80 01/23 0600 98.0 81 18 149/82 95 Room Air 01/22 2111 98.1 73 18 126/78 96 Room Air 01/22 1441 78 136/72 01/22 1414 97.8 76 20 136/72 95 Room Air Intake & Output 01/23 1600 01/23 0800 01/23 0000 Intake Total 120 1170 Output Total Balance 120 1170 Intake, IV 450 Intake, Oral 120 720 Number 0 Bowel Movements Physical Exam General Appearance: Alert, Cooperative, No Acute Distress Skin: No Rashes Skin Temp/Moisture Exam: Warm/Dry HEENT: Atraumatic, PERRLA, EOMI, Mucous Membr. moist/pink Cardiovascular: Regular Rate, Normal S1, Normal S2 Lungs: Clear to Auscultation, Normal Air Movement Abdomen: Normal Bowel Sounds, Soft, No Tenderness Neurological: Normal Speech, Strength at 5/5 X4 Ext, Normal Tone, Sensation Intact, Cranial Nerves 3-12 NL, Reflexes 2+ Extremities: No Clubbing, No Cyanosis, No Edema, Normal Pulses, No Tenderness/ Swelling Current Medications: Current Medications Sig/Arun Start time Last Medication Dose Route Stop Time Status Admin Acetaminophen 650 MG Q6P PRN 01/22 0745 AC PO Aspirin Buffered 81 MG DAILY 01/22 09 AC 01/23 PO 0814 Atorvastatin Calcium 10 MG 1700 01/22 1700 AC 01/22 PO 1902 Diazepam 2 MG BID PRN 01/22 0730 AC PO Enoxaparin Sodium 40 MG DAILY 01/22 0900 AC 01/23 SC 0815 Levothyroxine Sodium 0.075 MG DAILY AC 01/22 0714 AC 01/23 PO 0525 Losartan Potassium 50 MG DAILY 01/22 1337 AC 01/23 PO 0815 Meclizine HCl 25 MG TID PRN 01/22 715 AC 01/23 PO 0817 Omeprazole 40 MG DAILY AC 01/22 07 AC 01/23 PO 0525 Ondansetron HCl 4 MG Q6P PRN 01/22 745 AC IV Sodium Chloride 1,000 ML ONCE ONE 01/22 07 DC 01/22 IV 01/22 2049 0911 Last 24 Hrs of Lab/Manuelito Results Last 24 Hrs of Labs/Mics: Laboratory Tests 01/23/18626: Anion Gap 11, Estimated GFR 53 L, BUN/Creatinine Ratio 20.0, CBC w Diff NO MAN DIFF REQ, RBC 4.86, MCV 77.0 L, MCH 25.4 L, MCHC 33.1, RDW 14.5, MPV 7.5, Gran % 70.3, Lymphocytes % 18.0 L, Monocytes % 8.8, Eosinophils % 2.6, Basophils % 0.3, Absolute Granulocytes 4.5, Absolute Lymphocytes 1.2, Absolute Monocytes 0.6 , Absolute Eosinophils 0.2, Absolute Basophils 0 Assessment/Plan Assessment: Ms. Saunders is an 82-year-old female with a PMH significant for Mni re's disease, TIA, HTN, HLD, mitral regurgitation, GI bleed, hypothyroidism, and OA BIBA for N/V ECHO 09/2017: Normal LVEF (65-70%) Mild aortic stenosis and insufficiency. Lipomatous atrial septal hypertrophy is present. 01/2018: CT head was negative for any acute pathology and a stable right temporal lobe encephalomalacia and mild to moderate chronic white matter microangiopathic changes. Patient today remained symptomatic with subjective dizziness. Patient seen by physical therapy and occupational therapy. Patient had manual lymph drainage to the mastoid, jawline, terminus of both sides of the neck. Patient is safe for home discharge with outpatient therapy. Patient's meclizine was changed to a standing dose of TID. Patient given 1L of fluids. Problem list: N/V History of Mnire's disease Plan: Continue to observe patient on general medicine Continue home medications except losartan Continue IV fluids Repeat orthostat pendng Continue losartan Continue scopolamine patch PT eval Diet: Heart healthy DVT ppx: sc heparin Code: DNR/I Problem List: 1. Meniere disease Pain Ratin Pain Location: n/a Pain Goal: Remain pain free Pain Plan: tylenol PRN Tomorrow's Labs & Rationales: bep - IV fluids Leta CLAY,Pat 01/23/18 1237: Attending MD Review Statement Attending Statement Attending MD Statement: examined this patient, discuss w/resident/PA/CHILD GUIDANCE COUNSELOR, agreed w/resident/PA/CHILD GUIDANCE COUNSELOR, discussed with family, reviewed EMR data (avail), discussed with nursing, discussed with case mgmt, amended to note Attending Assessment/Plan: Patient seen and examined. Lying in bed and not in any acute distress. present at the bedside. She continues to complain of dizziness when changing position. Denies headache. Denies blurry vision denies chest pain. Orthostatic vitals were checked today. She had a 14 point drop in her systolic blood pressure of 20 point rise in her heart rate. She is orthostatic positive. Laboratory data does reveal the prerenal azotemia. She may be volume depleted in addition to her chronic Mnire's disease. This may explain recent exacerbation of her chronic dizziness which has usually been better controlled. Recommendations: -Hydrate patient with normal saline at 100 cc an hour for 1 L. -Repeat orthostatic vitals after hydration. -Continue meclizine 3 times a day. -Physical therapy to mobilize patient. -Discharge planning once her symptoms have resolved.
[2018-01-23 08:25] LABS: ABSOLUTE BASOPHIL COUNT 0 /CUMM (0.0-0.2); ABSOLUTE EOSINOPHIL COUNT 0.2 /CUMM (0.0-0.7); ABSOLUTE GRANULOCYTE CT 4.5 /CUMM (1.4-6.5); ABSOLUTE LYMPH COUNT 1.2 /CUMM (1.2-3.4); ABSOLUTE MONOCYTE COUNT 0.6 /CUMM (0.10-0.60); BASOPHIL % 0.3 % (0.0-2.0); EOSINOPHIL % 2.6 % (0-5); GRANULOCYTE % 70.3 % (42.2-75.2); HEMATOCRIT 37.4 % (37-47); MEAN CORPUSCULAR HGB 25.4 PG (27.0-31.0); MEAN CORPUSCULAR HGB CONC 33.1 G/DL (33.0-37.0); MEAN PLATELET VOLUME 7.5 FL (7.4-10.4); PLATELET COUNT 278 /CUMM (130-400); RBC DISTRIBUTION WIDTH 14.5 % (11.5-14.5); RED BLOOD CELL CT 4.86 /CUMM (4.20-5.40); WHITE BLOOD CELL COUNT 6.5 /CUMM (4.8-10.8)
[2018-01-23] MEDS ORDERED: MECLIZINE HCL25 MG PO (13:14)
--- NOTE | 2018-01-23 13:20 | Patient Discharge Instructions ---
Discharge Instructions General Discharge Information You were seen/treated for: Dizziness Vertgo Special Instructions: 1. Follow up wtih your pcp within 1 week of discharge 2. Follow up with your ENT within 1-2 weeks of discharge 3. Please take meclizine three times a day 4. Please come back to the ED or call your physician if your symptoms worsen Diet Continue normal diet: No Recommended Diet: Heart Healthy Activity Full Activity/No Limits: No Activity Self Limited: Yes Acute Coronary Syndrome Inclusion Criteria At DC or during hospital stay patient has or had the following: ACS DIAGNOSIS No Discharge Core Measures Meds if any: Prescribed or Continued at Discharge Meds if any: NOT Prescribed or Continued at Discharge Congestive Heart Failure Inclusion Criteria At DC or during hospital stay patient has or had the following: CHF DIAGNOSIS No Discharge Core Measures Meds if any: Prescribed or Continued at Discharge Meds if any: NOT Prescribed or Continued at Discharge Cerebrovascular accident Inclusion Criteria At DC or during hospital stay patient has or had the following: CVA/TIA Diagnosis No Discharge Core Measures Meds if any: Prescribed or Continued at Discharge Meds if any: NOT Prescribed or Continued at Discharge Venous thromboembolism Inclusion Criteria VTE Diagnosis No VTE Type NONE VTE Confirmed by (Test) NONE Discharge Core Measures - Per Current guidelines, there needs to be overlap - treatment for the first 5 days of Warfarin therapy. - If discharged on Warfarin prior to 5 days of - overlap therapy, the patient will need to be - assessed for post discharge needs including - *Post discharge parental anticoagulation - *Warfarin and/or parental anticoagulation education - *Follow up date to check INR post discharge At least 5 days overlap therapy as Inpatient No Meds if any: Prescribed or Continued at Discharge Note: Overlap Therapy is Warfarin and Anticoagulant Meds if any: NOT Prescribed or Continued at Discharge
[2018-01-23 14:50] VITALS: BP 134/78
[2018-01-23 15:05] VITALS: BP 134/78
[2018-01-23 21:17] VITALS: BP 142/75
[2018-01-24 06:19] VITALS: BP 144/77
--- NOTE | 2018-01-24 07:14 | PN- Housestaff ---
Eduardo CLAY,[facility] 01/24/18 0714: Subjective Follow-up For: Dizziness, N/V H/O Mnire disease Subjective: Patient was seen and examined today. Reports dizziness and lightheadedness when tries to see up and down. straight vision without complains. There was an episode of transient confusion overnight, reports mild confusion every now and then No acute events overnight. stable to be d/c home with follow up instructions with ENT Review of Systems Constitutional: Reports: see HPI. Objective Last 24 Hrs of Vital Signs/I&O Vital Signs Date Time Temp Pulse Resp B/P B/P Pulse O2 O2 Flow FiO2 Mean Ox Delivery Rate 01/24 0823 68 134/80 01/24 0619 98.5 77 18 144/77 95 Room Air 01/23 2117 98.7 75 18 142/75 95 Room Air 01/23 1505 98.1 76 18 134/78 96 Room Air Intake & Output 01/24 1600 01/24 0800 01/24 0000 Intake Total 240 700 Output Total Balance 240 700 Intake, IV 400 Intake, Oral 240 300 Physical Exam General Appearance: Alert, Oriented X3, Cooperative Cardiovascular: Normal S1, Normal S2 Lungs: Clear to Auscultation Abdomen: Normal Bowel Sounds, Soft Neurological: Normal Speech Current Medications: Current Medications Sig/Arun Start time Last Medication Dose Route Stop Time Status Admin Acetaminophen 650 MG Q6P PRN 01/22 0745 AC PO Aspirin Buffered 81 MG DAILY 01/22 0900 AC 01/24 PO 0823 Atorvastatin Calcium 10 MG 1700 01/22 1700 AC 01/23 PO 1746 Diazepam 2 MG BID PRN 01/22 0730 AC PO Enoxaparin Sodium 40 MG DAILY 01/22 0900 AC 01/24 SC 0823 Levothyroxine Sodium 0.075 MG DAILY AC 01/22 0714 AC 01/24 PO 0539 Losartan Potassium 50 MG DAILY 01/22 1337 AC 01/24 PO 0823 Meclizine HCl 25 MG TID PRN 01/22 0715 AC 01/23 PO 2018 Omeprazole 40 MG DAILY AC 01/22 0715 AC 01/24 PO 0538 Ondansetron HCl 4 MG Q6P PRN 01/22 0745 AC IV Oxymetazoline HCl 2 SPRAY BID PRN 01/24 0130 AC LOIS Sodium Chloride 1,000 ML Q10H 01/23 1630 DC 01/23 IV 01/24 0229 1747 Last 24 Hrs of Lab/Manuelito Results Last 24 Hrs of Labs/Mics: Laboratory Tests 01/24/18 0812: Sodium Pending, Potassium Pending, Chloride Pending, Carbon Dioxide Pending, Anion Gap Pending, BUN Pending, Creatinine Pending, BUN/Creatinine Ratio Pending Assessment/Plan Assessment: Ms. Saunders is an 82-year-old female with a PMH significant for Mni re's disease, TIA, HTN, HLD, mitral regurgitation, GI bleed, hypothyroidism, and OA BIBA for N/V Problem list: N/V History of Mnire's disease Plan Patient seen by physical therapy and occupational therapy yesterday. Patient had manual lymph drainage to the mastoid, jawline, terminus of both sides of the neck. Patient is safe for home discharge with outpatient therapy. Patient's meclizine was changed to a standing dose of TID. Patient given 1L of fluids. Repeat orthostats negative Continue home mediactions Diet: Heart healthy/ DVT ppx: sc heparin/Code: DNR/I Problem List: 1. Meniere disease Pain Ratin Pain Location: n/a Pain Goal: Pain 4 or less Pain Plan: prn Tomorrow's Labs & Rationales: none Pat Gillette MD 01/24/18 1118: Attending MD Review Statement Attending Statement Attending MD Statement: examined this patient, discuss w/resident/PA/PROFESSIONAL POKER PLAYER, agreed w/resident/PA/PROFESSIONAL POKER PLAYER, discussed with family, reviewed EMR data (avail), discussed with nursing, discussed with case mgmt, amended to note Attending Assessment/Plan: Patient seen and examined. Resting comfortably in bed and not in any acute distress. Orthostatic vitals have improved following IV hydration yesterday. Nursing staff reported overnight he had some periods of confusion but appeared to have improved this morning. does admit that she does have periods of confusion on and off at baseline at home. She does admit to ongoing dizziness with certain position changes. This however is baseline according to her . Her symptoms have improved significantly compared to how she felt on presentation. She is able to ambulate independently and has been cleared by the physical therapy service. She is medically stable to be discharged back home today.
[2018-01-24 08:23] VITALS: BP 134/80
[2018-01-24] MEDS ORDERED: MECLIZINE HCL25 MG PO ×2 (09:19)
== END 2018-01-24 10:40 ==
LOC: ERH 02:41 → 2NB 06:32 → ERHI 06:32 → ENRESERV 07:18 → ENTRNSPT 07:39 → CMPTRNSPT 08:12 → 2NB 08:21 → ENPENDDIS 01-24 09:31 → ENTRNSPT 01-24 10:16 → EDTRNSPT 01-24 10:37 → EDTRNSPTSTS 01-24 10:37 → 2NB 01-24 10:40 → CMPTRNSPT 01-24 10:50
PROVIDERS: Emergency Medicine; Internal Medicine
DX: H81.09 Meniere's disease, unspecified ear (principal); Z86.73 Personal history of transient ischemic attack (TIA), and cerebral infarction without residual deficits; I10 Essential (primary) hypertension; E78.5 Hyperlipidemia, unspecified; I34.0 Nonrheumatic mitral (valve) insufficiency; E03.9 Hypothyroidism, unspecified; M19.90 Unspecified osteoarthritis, unspecified site; Z79.82 Long term (current) use of aspirin; Z85.850 Personal history of malignant neoplasm of thyroid; R11.2 Nausea with vomiting, unspecified
CPT/HCPCS: 36415; 36592; 82436; 93005; 93010; 96372; 96374; 96375; 97110-GO; 97116-GP; 97161-GP; 97166-GO; G0378; J1650; J2405

== ENCOUNTER 2018-03-03 11:34 | Emergency (ER) | payer OTHER ==
[~2018-03-03] VITALS: Ht 157.5 cm; Wt 56.7 kg
--- NOTE | 2018-03-03 12:38 | ED AMS/SEIZURE/WEAK/DIZZY ---
History of Present Illness General Chief Complaint: Ear Complaints Stated Complaint: RINGING IN EARS Source: patient, old records Exam Limitations: no limitations Vital Signs & Intake/Output Vital Signs & Intake/Output Vital Signs Date Time Temp Pulse Resp B/P B/P Pulse O2 O2 Flow FiO2 Mean Ox Delivery Rate 03/03 1604 72 20 164/82 97 Room Air 03/03 1406 97.9 76 16 170/8 96 Room Air 03/03 1405 Room Air Room Air 03/03 1146 98.1 80 18 110/72 96 Room Air Allergies Coded Allergies: Penicillins (UNKNOWN 01/19/18) PT. STATES SHE WAS TOLD SHE IS ALLERGIC BUT DOES NOT KNOW THE REACTION. Reconcile Medications Alendronate Sodium 70 MG TABLET 70 MG PO QSUN BONES (Reported) TAKE WITH FULL GLASS OF WATER ON AN EMPTY STOMACH WHILE REMAINING IN AN UPRIGHT POSITION Aspirin (Ecotrin*) 81 MG TABLET.DR 1 TAB PO DAILY TIA (Reported) Reason to Stop at ADM: GI bleeding Atorvastatin Calcium 10 MG TABLET 1 TAB PO DAILY CHOLESTEROL (Reported) Bioflav,Lemon/Vit Bcomp,C (Lipo-Flavonoid Plus Caplet) 200 MG-100 MG TABLET 1 TAB PO DAILY VITAMIN (Reported) Diazepam (Valium) 2 MG TABLET 1 TAB PO BID PRN vertigo Ergocalciferol (Vitamin D2) (Vitamin D2) 50,000 UNIT CAPSULE 1 CAP PO MONTHLY supplement (Reported) Levothyroxine Sodium (Levoxyl) 75 MCG TABLET 1 TAB PO DAILY AC THYROID ( Reported) Losartan Potassium (Cozaar) 50 MG TABLET 1 TAB PO DAILY HTN (Reported) Meclizine HCl 25 MG TABLET 1 TAB PO TID PRN DIZZINESS .. Omeprazole 40 MG CAPSULE.DR 1 CAP PO DAILY GASTRITIS . Ondansetron (Zofran Odt) 4 MG TAB.RAPDIS 1 TAB SL TID PRN NAUSEA . Ondansetron (Zofran Odt) 4 MG TAB.RAPDIS 1 TAB SL TID PRN nausea Triage Note: RECEIVED 83 YO FEMALE C/O RINGING IN RIGHT EAR, STARTED THIS AM AT 10 AM. PT ALSO REPORTING DIZINESS WITH RINGING IN EAR. PT HAS A HX OF RINGING IN EAR, TAKES MECLIZINE. Triage Nurses Notes Reviewed? 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 Patient reports episode of nausea and vomiting with dizziness yesterday which has since improved. Her dizziness is worse with positional changes. Patient has had issues with vertigo and tinitis for several years, she has tried Oswaldo's Hallpick maneuver with specialist. Patient also takes Meclizine for vertigo. Patient has also been on medications such as valium , scopalimine, and HCTZ however symptoms still persist. Patient describes dizziness as "room spinning". She also reports "clogged ear" sensation and decreased hearing in right ear. She also reports nasal congestion. Currently patient reports "funny sensation" however no severe dizziness. The patient denies abdominal pain, chest pain, dyspnea. (Rochelle Tolbert) Past History Travel History Traveled to [place] past 21 day No Medical History Any Pertinent Medical History? 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 Cardiovascular: hypertension, hyperlipidemia, mitral regurgitation Respiratory: NONE Gastrointestinal: GI BLEED 2016 Hepatic: NONE Renal: NONE Musculoskeletal: osteoarthritis Psychiatric: NONE Endocrine: hypothyroidism Blood Disorders: NONE Cancer(s): thyroid cancer HYPO DIPPER/Reproductive: NONE History of MRSA: No History of VRE: No History of CDIFF: No Influenza Vaccine: 07/09/17 Surgical History Surgical History: hysterectomy, THYROIDECTOMY DETACHED RETINA CATARACTS REMOVAL TONSILLECTOMY Psychosocial History Who do you live with Spouse Services at Home None What is your primary language Georgian Tobacco Use: Never used Family History Family History, If Any: neice Relation not specified for: FHx: breast cancer Hx Contributory? No (Rochelle Tolbert) Review of Systems Review of Systems Constitutional: Reports: no symptoms. EENTM: Reports: see HPI. Respiratory: Reports: no symptoms. Cardiovascular: Reports: no symptoms. GI: Reports: see HPI. Genitourinary: Reports: no symptoms. Musculoskeletal: Reports: no symptoms. Skin: Reports: no symptoms. Neurological/Psychological: Reports: see HPI. Hematologic/Endocrine: Reports: no symptoms. Immunologic/Allergic: Reports: no symptoms. All Other Systems: Reviewed and Negative (Rochelle Tolbert) Physical Exam Physical Exam General Appearance: well developed/nourished, no apparent distress, alert, awake Head: atraumatic, normal appearance Eyes: Bilateral: normal appearance, PERRL, EOMI. Ears, Nose, Throat: normal pharynx, normal ENT inspection, hearing grossly normal Neck: normal inspection, supple, full range of motion Respiratory: normal breath sounds, no respiratory distress, lungs clear Cardiovascular: regular rate/rhythm Gastrointestinal: normal bowel sounds, soft, non-tender, no organomegaly Back: normal inspection, normal range of motion Extremities: normal range of motion Neurologic/Psych: awake, alert, oriented x 3, water superintendent II-XII nml as tested, cerebellar testing WNL Skin: intact, normal color, warm/dry Core Measures ACS in differential dx? No CVA/TIA Diagnosis No Sepsis Present: No Sepsis Focused Exam Completed? No (Lily DAVIS,Rochelle Sow) Progress Differential Diagnosis: anemia, benign positional vertigo, CVA/stroke, dehydration, drug intoxication, electrolyte imbalance, intracranial Hem., intracranial mass/tumor, Meniere's disease, vertebrobasilar insuff Plan of Care: Orders Procedure Date/time Status COMPREHENSIVE METABOLIC PANEL 03/03 1305 Complete CBC WITHOUT DIFFERENTIAL 03/03 1305 Complete Laboratory Tests 03/03/18 1340: Anion Gap 11, Estimated GFR 53 L, BUN/Creatinine Ratio 19.0, Glucose 94, Calcium 9.9, Total Bilirubin 1.0, AST 21, ALT 29, Alkaline Phosphatase 57, Total Protein 7.2, Albumin 4.0, Globulin 3.2, Albumin/Globulin Ratio 1.3, CBC w Diff NO MAN DIFF REQ, RBC 5.00, MCV 77.1 L, MCH 26.1 L, MCHC 33.8, RDW 16.5 H, MPV 7.1 L, Gran % 79.2 H, Lymphocytes % 12.3 L, Monocytes % 7.2, Eosinophils % 1.1, Basophils % 0.2, Absolute Granulocytes 6.2, Absolute Lymphocytes 1.0 L, Absolute Monocytes 0.6, Absolute Eosinophils 0.1, Absolute Basophils 0 Patient had recent head CT imaging last month which showed no acute abnormality. Patient is currently neurologically intact with normal gait and cerebellar testing. Patient has also had recent outpatient neurologic workup. She was admitted in January for 5 days due to episode of intractible vertigo and no significant findings at that time. For these reasons repeat CT imaging deferred. Patient's labs are stable, no acute changes compared to previous studies. Patient does not report significant relief following scopolamine. Patient states that she does feel ready to go home, states her symptoms are mild at this time. Patient to begin Zofran for nausea and Flonase nasal spray for decongestion. Patient to follow-up with ENT. Patient has steady gait at time of discharge. She does not have intractable vertigo. There is a low suspicion for acute CVA or intracrancial abnormality at this time. Patient's symptoms are mild compared to her previous episodes. Patient given strict return precautions and agrees with the plan of care, she is comfortable going home at this time. The patient was discussed with Dr. Lawton who agrees with this plan. Initial ED EKG: none (Lily DAVIS,Rochelle Sow) Departure Departure Disposition: HOME OR SELF CARE Condition: Stable Clinical Impression Primary Impression: Dizziness Referrals: Marie CLAY,Faizan Berger (PCP/Family) Additional Instructions: Take Zofran as prescribed as needed for nausea. Continue meclizine as prescribed by your specialist. Take Flonase for nasal decongestant. Follow-up with Dr. Sharma, call to make an appointment. If worsening symptoms please Return to the emergency department. Please note that there might be incidental findings in your evaluation that are unrelated to the current emergency department visit. Please notify your primary care doctor about this emergency department visit in order to obtain and review all of the testing performed so that these incidental findings can be monitored as needed. If you had an x-ray performed, please understand that some fractures may not be seen on the initial set of x-rays. If your symptoms persist you might need a repeat set of x-rays to check for such a fracture. If you had a laceration evaluated, please understand that foreign bodies such as glass or wood may not be visible to the naked eye or on plain x-rays. If the wound becomes red, swollen, increasingly more painful or if there is any drainage from the wound, please have it reevaluated by a physician for the possibility of a retained foreign body. If you're unable to follow up as outlined in the discharge instructions please return to the emergency department. Thank you for choosing the [facility] Emergency Department for your care. It was a pleasure to serve you today. Departure Forms: Customer Survey General Discharge Information Prescriptions: Current Visit Scripts Ondansetron (Zofran Odt) 1 TAB SL TID PRN nausea #10 TAB (Lily DAVIS,Rochelle Sow) PA/COMMUTATOR ASSEMBLER Co-Sign Statement Statement: ED Attending supervision documentation- [X] I saw and evaluated the patient. I have also reviewed all the pertinent lab results and diagnostic results. I agree with the findings and the plan of care as documented in the PA's/COMMUTATOR ASSEMBLER's documentation. X[] I have reviewed the ED Record and agree with the PA's/COMMUTATOR ASSEMBLER's documentation. [] Additions or exceptions (if any) to the PAs/COMMUTATOR ASSEMBLER's note and plan are summarized below: [] (Leighann CLAY,Danny Cardenas)
[2018-03-03 13:57] LABS: ABSOLUTE BASOPHIL COUNT 0 /CUMM (0.0-0.2); ABSOLUTE EOSINOPHIL COUNT 0.1 /CUMM (0.0-0.7); ABSOLUTE GRANULOCYTE CT 6.2 /CUMM (1.4-6.5); ABSOLUTE MONOCYTE COUNT 0.6 /CUMM (0.10-0.60); BASOPHIL % 0.2 % (0.0-2.0); EOSINOPHIL % 1.1 % (0-5); GRANULOCYTE % 79.2 % (42.2-75.2); HEMATOCRIT 38.6 % (37-47); MEAN CORPUSCULAR HGB 26.1 PG (27.0-31.0); MEAN CORPUSCULAR HGB CONC 33.8 G/DL (33.0-37.0); MEAN CORPUSCULAR VOLUME 77.1 FL (81.0-99.0); MEAN PLATELET VOLUME 7.1 FL (7.4-10.4); PLATELET COUNT 276 /CUMM (130-400); RBC DISTRIBUTION WIDTH 16.5 % (11.5-14.5); WHITE BLOOD CELL COUNT 7.9 /CUMM (4.8-10.8)
[2018-03-03] MEDS ORDERED: ZOFRAN ODT4 M1 SL (15:41)
[2018-03-03 16:04] VITALS: BP 164/82
== END 2018-03-03 16:13 ==
LOC: ERH 11:34
PROVIDERS: Physician Assistant
DX: R42 Dizziness and giddiness (principal)

== ENCOUNTER 2018-03-08 09:07 | Emergency (ER) | payer OTHER ==
[~2018-03-08] VITALS: Ht 157.5 cm; Wt 58.1 kg
--- NOTE | 2018-03-08 11:21 | ED THROAT/DENTAL COMPLAINT ---
History of Present Illness General Chief Complaint: Sore Throat, Dental Pain Stated Complaint: SORE THROART Source: patient, family, old records Exam Limitations: no limitations Vital Signs & Intake/Output Vital Signs & Intake/Output Vital Signs Date Time Temp Pulse Resp B/P B/P Pulse O2 O2 Flow FiO2 Mean Ox Delivery Rate 03/08 1147 85 18 140/98 97 Room Air 03/08 1128 Room Air 03/08 0946 98.8 96 20 121/75 96 Room Air Allergies Coded Allergies: Penicillins (UNKNOWN 01/19/18) PT. STATES SHE WAS TOLD SHE IS ALLERGIC BUT DOES NOT KNOW THE REACTION. Triage Note: SORE THROAT SINCE TUESDAY. WENT TO WALK IN CLINIC ON TUESDAY AND HAD TC BIT IT WAS NEG. PT RX'D ANTIBIOTIC AND COUGH SYRUP BUT NO BETTER Triage Nurses Notes Reviewed? yes Onset: Gradual Duration: day(s): Timing: recent history Injury Environment: home Severity: moderate HPI: 83-year-old female presents emergency department complaining of sore throat and difficulty swallowing for the past few days. Patient states that last Tuesday she was seen by an urgent care for sinus infection. She was started on azithromycin antibiotics at that time. Patient reports initial improvement however sore throat developed of antibiotics. Patient states that she is having trouble swallowing liquids due to her sore throat. Patient reports dry cough without sputum production. She denies fevers, chills, abdominal pain, dyspnea. (Lily DAVIS,Rochelle Sow) Reconcile Medications Alendronate Sodium 70 MG TABLET 70 MG PO QSUN BONES (Reported) TAKE WITH FULL GLASS OF WATER ON AN EMPTY STOMACH WHILE REMAINING IN AN UPRIGHT POSITION Aspirin (Ecotrin*) 81 MG TABLET. 1 TAB PO DAILY TIA (Reported) Reason to Stop at ADM: GI bleeding Atorvastatin Calcium 10 MG TABLET 1 TAB PO DAILY CHOLESTEROL (Reported) Azithromycin 1 GRAM PACKET 1 PAC PO ONCE THROAT INFECTION (Reported) dissolve in 2 ounces of water Bioflav,Lemon/Vit Bcomp,C (Lipo-Flavonoid Plus Caplet) 200 MG-100 MG TABLET 1 TAB PO DAILY VITAMIN (Reported) Ergocalciferol (Vitamin D2) (Vitamin D2) 50,000 UNIT CAPSULE 1 CAP PO MONTHLY supplement (Reported) Levothyroxine Sodium (Levoxyl) 75 MCG TABLET 1 TAB PO DAILY AC THYROID ( Reported) Losartan Potassium (Cozaar) 50 MG TABLET 1 TAB PO DAILY HTN (Reported) Meclizine HCl 25 MG TABLET 1 TAB PO TID PRN DIZZINESS .. Nystatin 100,000 UNIT/ML ORAL.SUSP 5 ML PO 4 TIMES/DAY thrush swish and swallow Omeprazole 40 MG CAPSULE.DR 1 CAP PO DAILY GASTRITIS . (César Mazariegos DO) Past History Travel History Traveled to [place] past 21 day No Medical History Any Pertinent Medical History? 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 No (Rochelle Tolbert) Review of Systems Review of Systems Constitutional: Reports: no symptoms. EENTM: Reports: see HPI. Respiratory: Reports: see HPI. Cardiovascular: Reports: no symptoms. GI: Reports: see HPI. Genitourinary: Reports: no symptoms. Musculoskeletal: Reports: no symptoms. Skin: Reports: no symptoms. Neurological/Psychological: Reports: no symptoms. Hematologic/Endocrine: Reports: no symptoms. Immunologic/Allergic: Reports: no symptoms. All Other Systems: Reviewed and Negative (Rochelle Tolbert) Physical Exam Physical Exam General Appearance: well developed/nourished, no apparent distress, alert, awake Head: atraumatic, normal appearance Eyes: Bilateral: normal appearance. Ears: Bilateral: canal normal, Tympanic normal. Nose: normal inspection Mouth/Throat: erythema of tongue and posterior pharynx with white patches on tongue Neck: normal inspection, supple, full range of motion, no LAD or swelling Cardiovascular/Respiratory: normal breath sounds, regular rate/rhythm, no respiratory distress Back: normal inspection, normal range of motion Neurologic/Psych: awake, alert, oriented x 3 Skin: intact, normal color, warm/dry Core Measures ACS in differential dx? No Sepsis Present: No Sepsis Focused Exam Completed? No (Rochelle Tolbert) Progress Differential Diagnosis: epiglottitis, Ludwigs angina, odontogenic abscess, myah- tonsillar abscess, stomatitis/gingivitis, strep pharyngitis, oral candidiasis (Rochelle Tolbert) Plan of Care: Orders Procedure Date/time Status THROAT CULTURE W/QUICK STREP 03/08 0947 Active Patient has white patches on her tongue which can be scraped off with tongue blade. Symptoms consistent with oral candidiasis. Rapid strep test is negative. Patient didn't know acute distress here in the emergency department, she is tolerating her secretions, no hypoxemia. The patient is afebrile and appears well. Patient to begin nystatin swish and swallow to cover her for oral candidiasis and esophageal candidiasis. Patient was given strict return precautions. The patient agrees with the plan of care. The patient was seen and evaluated by Dr. Mazariegos who agrees with this plan. (Rochelle Tolbert) (César Mazariegos DO) Departure Departure Disposition: HOME OR SELF CARE Condition: Stable Clinical Impression Primary Impression: Oral candidiasis Referrals: Marie CLAY,Faizan Berger (PCP/Family) Additional Instructions: Take nystatin swish and swallow as prescribed for your thrush. Follow-up with your primary care doctor. Return if you have worsening symptoms or concerns such as increasing sore throat, difficulty swallowing, difficulty breathing, fevers. Please note that there might be incidental findings in your evaluation that are unrelated to the current emergency department visit. Please notify your primary care doctor about this emergency department visit in order to obtain and review all of the testing performed so that these incidental findings can be monitored as needed. If you had an x-ray performed, please understand that some fractures may not be seen on the initial set of x-rays. If your symptoms persist you might need a repeat set of x-rays to check for such a fracture. If you had a laceration evaluated, please understand that foreign bodies such as glass or wood may not be visible to the naked eye or on plain x-rays. If the wound becomes red, swollen, increasingly more painful or if there is any drainage from the wound, please have it reevaluated by a physician for the possibility of a retained foreign body. If you're unable to follow up as outlined in the discharge instructions please return to the emergency department. Thank you for choosing the [facility] Emergency Department for your care. It was a pleasure to serve you today. Departure Forms: Customer Survey General Discharge Information Prescriptions: Current Visit Scripts Nystatin 5 ML PO 4 TIMES/DAY #200 ML swish and swallow (Lily DAVIS,Rochelle Sow) PA/HAND THERMAL CUTTER Co-Sign Statement Statement: ED Attending supervision documentation- [x] I saw and evaluated the patient. I have also reviewed all the pertinent lab results and diagnostic results. I agree with the findings and the plan of care as documented in the PA's/HAND THERMAL CUTTER's documentation. [] I have reviewed the ED Record and agree with the PA's/HAND THERMAL CUTTER's documentation. [x] Additions or exceptions (if any) to the PAs/HAND THERMAL CUTTER's note and plan are summarized below: I saw the patient personally and I agree with the assessment of the physician players assistant that the patient likely has oropharyngeal candidiasis, and given her dysphagia possibly esophageal candidiasis. She has no history of immune issues, so given her recent antibiotics for sinusitis, I feel that this is the most likely etiology. I found no evidence of Berry's angina, retropharyngeal or peritonsillar abscesses, or other deep space tissue infection. Therefore, I do not feel that imaging is warranted, and I feel that nystatin swish and swallow by prescription is the correct course of action. The patient and her understand and agree and they will call their PCP for reassessment this week. (César Mazariegos DO)
[2018-03-08] MEDS ORDERED: AZITHROMYCIN1 GM PO (11:34)
[2018-03-08 11:47] VITALS: BP 140/98
[2018-03-08] MEDS ORDERED: NYSTATIN100000 UNI PO (12:34)
[2018-03-10] MEDS ORDERED: FLUCONAZOLE100 M1 PO (14:10)
== END 2018-03-08 13:10 ==
LOC: ERH 09:07
DX: B37.0 Candidal stomatitis (principal)

== ENCOUNTER 2018-05-20 19:12 | Emergency (ER) | payer OTHER ==
[~2018-05-20] VITALS: Ht 154.9 cm; Wt 58.1 kg
[~2018-05-20 19:12] MED LIST changes: +AZITHROMYCIN1 GM PO; +FLUCONAZOLE100 M1 PO; +NYSTATIN100000 UNI PO
--- NOTE | 2018-05-20 21:24 | ED GENERAL ADULT ---
History of Present Illness General Chief Complaint: Ear Complaints Stated Complaint: PT IS HAVING PAIN AND TROUBLE WITH RT EAR Source: patient, family, old records Exam Limitations: no limitations Vital Signs & Intake/Output Vital Signs & Intake/Output Vital Signs Date Time Temp Pulse Resp B/P B/P Pulse O2 O2 Flow FiO2 Mean Ox Delivery Rate 05/20 2158 98.1 76 20 143/65 95 Room Air 05/20 1946 98.6 78 18 144/79 95 Room Air ED Intake and Output 05/21 0000 05/20 1200 Intake Total 0 Output Total Balance 0 Intake, Oral 0 Patient 128 lb Weight Weight Reported by Patient Measurement Method Allergies Coded Allergies: Penicillins (UNKNOWN 01/19/18) PT. STATES SHE WAS TOLD SHE IS ALLERGIC BUT DOES NOT KNOW THE REACTION. Reconcile Medications Alendronate Sodium 70 MG TABLET 70 MG PO QSUN BONES (Reported) TAKE WITH FULL GLASS OF WATER ON AN EMPTY STOMACH WHILE REMAINING IN AN UPRIGHT POSITION Aspirin (Ecotrin*) 81 MG TABLET.DR 1 TAB PO DAILY TIA (Reported) Reason to Stop at ADM: GI bleeding Atorvastatin Calcium 10 MG TABLET 1 TAB PO DAILY CHOLESTEROL (Reported) Bioflav,Lemon/Vit Bcomp,C (Lipo-Flavonoid Plus Caplet) 200 MG-100 MG TABLET 1 TAB PO DAILY VITAMIN (Reported) Ergocalciferol (Vitamin D2) (Vitamin D2) 50,000 UNIT CAPSULE 1 CAP PO MONTHLY supplement (Reported) Fluconazole 100 MG TABLET 1 TAB PO DAILY Candidiasis Levothyroxine Sodium (Levoxyl) 75 MCG TABLET 1 TAB PO DAILY AC THYROID ( Reported) Losartan Potassium (Cozaar) 50 MG TABLET 1 TAB PO DAILY HTN (Reported) Meclizine HCl 25 MG TABLET 1 TAB PO TID PRN DIZZINESS .. Nystatin 100,000 UNIT/ML ORAL.SUSP 5 ML PO 4 TIMES/DAY thrush swish and swallow Omeprazole 40 MG CAPSULE.DR 1 CAP PO DAILY GASTRITIS . Prednisone 20 MG TABLET 3 TAB PO DAILY tinitis/hearing loss Triage Note: PT FROM HOME C/O RIGHT EAR CLOGGED WITH EAX PER PT. PT STATES SHE CANNOT HEAR OUT OF RIGHT EAR D/T WAX BUILD UP SINCE 1600. PT IS A&0X3. VSS. Triage Nurses Notes Reviewed? yes HPI: This is an 83-year-old female with history of hypertension, hyperlipidemia, prior TIA, possible Mnire's disease, presenting to the emergency department with a sensation of right ear fullness and mild vertigo. Patient states that the symptoms started about 5 or 6 hours ago. She has had very similar symptoms in the past, has followed up with you nose and throat without satisfying answer. She was able to walk into the department and denies any severe dizziness. She denies any recent head trauma. She states she "might have a lot of wax in my ear". In addition to a sensation of ear fullness, she also describes a clicking tinnitus. She denies any infectious symptoms such as fever, chills, nausea, headache, neck pain. She denies any chest pain or difficulty breathing, abdominal pain. She has had no recent trauma or travel. She denies any sick contacts (Jewel Cuellar MD) Past History Travel History Traveled to [place] past 21 day No Medical History Any Pertinent Medical History? 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 No (Jewel Cuellar MD) Review of Systems Review of Systems Constitutional: Reports: no symptoms. EENTM: Reports: see HPI. Respiratory: Reports: no symptoms. Cardiovascular: Reports: no symptoms. GI: Reports: no symptoms. Genitourinary: Reports: no symptoms. Musculoskeletal: Reports: no symptoms. Skin: Reports: no symptoms. Neurological/Psychological: Reports: no symptoms. (Jewel Cuellar MD) Physical Exam Physical Exam General Appearance: well developed/nourished, no apparent distress, alert, awake , comfortable Head: atraumatic, normal appearance Comments: This is a well-appearing 83-year-old female, no acute distress. HEENT exam significant only for mild cerumen burden to bilateral ears and some decreased but not completely extinguished hearing to the right side. She has no fluid behind bilateral TMs, nor is there any erythema to the ear canal. She has no mastoid process tenderness bilaterally. Trachea midline, no JVD, cardiopulmonary exam is within normal limits, as is abdominal exam. She has intact pulses and sensation in all 4 extremities and a benign neurologic exam. She has intact cranial nerves II through XII. Core Measures ACS in differential dx? No CVA/TIA Diagnosis: No Sepsis Present: No Sepsis Focused Exam Completed? No (Jewel Cuellar MD) Progress Differential Diagnoses I considered the following diagnoses in my evaluation of the patient: Cerumen impaction, Mnire's disease, labyrinthitis, low suspicion for middle ear infection in this patient given exam, history, and presentation. Very low suspicion for acute cerebrovascular accident or transient ischemic attack in this patient likewise. Doubt any acute traumatic process or central nervous system infection at this time. Plan of Care: Current Medications Sig/Arun Start time Last Medication Dose Stop Time Status Admin Prednisone 60 MG ONCE ONE 05/20 2230 UNVr 05/20 2231 Earwax is removed with a small curette. She tolerates this procedure well with no complications. On reassessment, patient has a normal-appearing TM with no obvious infectious changes. Patient is administered a p.o. dose of meclizine. Following this, she reports significant improvement in her symptoms. Patient very well-appearing on reassessment, able to walk the department without difficulty. She asks if there is anything else we can try for her recurrent symptoms. Given that this is likely Mnire's disease, it is reasonable to try a short course of prednisone which some believe may improve outcome or less in symptoms. Patient is made aware that this is never been objectively verified in the known literature, however she is agreeable to try given the favorable side effect profile of a short course of p.o. steroids. Patient is given explicit follow-up instructions and return precautions, discharged home with her who drives her. Initial ED EKG: none (Jewel Cuellar MD) Departure Departure Time of Disposition: 2229 Disposition: HOME OR SELF CARE Condition: Stable Clinical Impression Primary Impression: Sensation of fullness in right ear Secondary Impressions: Clicking tinnitus of right ear, Hearing loss Referrals: Marie CLAY,Faizan Berger (PCP/Family) Additional Instructions: Negative for coming to the emergency department today. As we discussed, recommend you follow-up with your primary care doctor on Tuesday, or Tuesday at the latest. Please take the prednisone as prescribed, as this may help with your ear pain. If you develop worsening ear discomfort, or pain or fever or chills or nausea or vomiting or any other concerning symptoms, please return to the emergency department immediately. I recommend that you take your meclizine at home as prescribed for dizziness. Departure Forms: Customer Survey General Discharge Information Prescriptions: Current Visit Scripts Prednisone 3 TAB PO DAILY #12 TAB (Jewel Cuellar MD) Resident Co-Sign Statement Statement: ED Attending supervision documentation- [] I saw and evaluated the patient. I have also reviewed all the pertinent lab results and diagnostic results. I agree with the findings and the plan of care as documented in the Resident's documentation. [x] I have reviewed the ED Record and agree with the Resident's documentation. [] Additions or exceptions (if any) to the Resident's note and plan are summarized below: [] (Tim Waldron DO) Critical Care Note Critical Care Note Critical Care Time: non-applicable (Jewel Cuellar MD)
[2018-05-20 21:58] VITALS: BP 143/65
[2018-05-20] MEDS ORDERED: PREDNISONE20 M1 PO (22:33)
== END 2018-05-20 22:38 ==
LOC: ERH 19:12
DX: H93.11 Tinnitus, right ear (principal); H91.91 Unspecified hearing loss, right ear